=== PATIENT | male | born 1955 | race Asian ===

== ENCOUNTER 2016-08-05 02:03 | Emergency (ER) | payer OTHER ==
[~2016-08-05] VITALS: Ht 172.7 cm; Wt 80.7 kg
[2016-08-05 02:46] LABS: Basophils # (auto) 0 uL; Basophils % (auto) 0.3 % (0.0-2.0); DEFINITIVE VIEW TRANSMISSION; Eosinophils # (auto) 0.2 uL; Eosinophils % (auto) 2.1 % (0.0-7.0); Hematocrit 39.4 % (41.0-53.0); Hemoglobin 12.2 g/dL (13.5-17.5); Lymphocytes # (auto) 1.7 uL; Lymphocytes % (auto) 19.6 % (10.0-50.0); Mean Corpuscular Hemoglobin 23.2 pg (28.0-32.0); Mean Corpuscular Hgb Conc. 31.1 g/dL (32.0-36.0); Mean Corpuscular Volume 74.6 fL (80.0-100.0); Mean Platelet Volume 7.9 fL (7.4-10.4); Monocytes # (auto) 0.2 uL; Monocytes % (auto) 2.1 % (0.0-12.0); Neutrophils # (auto) 6.4 uL; Neutrophils % (auto) 75.9 % (37.0-80.0); Platelet Count (auto) 254 10^3/uL (140-450); Red Cell Distribution Width 16.5 % (11.6-16.0); White Blood Cell 8.4 10^3/uL (4.4-10.8)
[2016-08-05 03:04] LABS: Albumin 3.8 g/dL (3.4-5.0); BUN/Creatinine Ratio 9.6; Calcium 8.6 mg/dL (8.5-10.1)
[2016-08-05 03:07] LABS: Bilirubin, Total 0.2 mg/dL (0.2-1.0); Total Protein 7.7 g/dL (6.4-8.2)
[2016-08-05 03:53] LABS: Partial Thromboplastin Time 26.7 sec (22.64-33.71); Prothrombin Time 10.3 sec (9.37-12.3)
[2016-08-05 09:50] VITALS: BP 111/79
== END 2016-08-05 09:58 | disposition home or self-care (01) ==
LOC: EDUNIT# 02:03 → ER 02:03 → EDBD 02:03 → ER 09:58
DX: K80.50 Calculus of bile duct without cholangitis or cholecystitis without obstruction (principal)
CPT/HCPCS: 36415; 71020; 74176; 80053; 82150; 83690; 84484; 85025; 85049; 85379; 85610; 85730; 93005; 94761

== ENCOUNTER 2019-12-12 06:47 | Inpatient (IN) | payer MEDICARE, MEDICAID ==
[~2019-12-12] VITALS: Ht 170.2 cm; Wt 96.8 kg
[2019-12-12] MEDS ORDERED: SODIUM CHLORIDE 0.9% 1,000 ML IV ONE ×2 (07:02)
[2019-12-12 07:19] LABS: Basophils # (auto) 0 10 ^3/uL (0-0.2); Basophils % (auto) 0.8 % (0.0-2.0); Eosinophils # (auto) 0 10 ^3/uL (0-0.8); Eosinophils % (auto) 0.6 % (0.0-7.0); Hematocrit 49.2 % (41.0-53.0); Hemoglobin 16.4 g/dL (13.5-17.5); Lymphocytes # (auto) 0.9 10 ^3/uL (0.4-5.4); Lymphocytes % (auto) 14.1 % (10.0-50.0); Mean Corpuscular Hemoglobin 29.9 pg (28.0-32.0); Mean Corpuscular Hgb Conc. 33.3 g/dL (32.0-36.0); Mean Corpuscular Volume 89.6 fL (80.0-100.0); Monocytes # (auto) 0.4 10 ^3/uL (0-1.3); Monocytes % (auto) 6.9 % (0.0-12.0); Neutrophils # (auto) 4.7 10 ^3/uL (1.6-8.6); Neutrophils % (auto) 77.6 % (37.0-80.0); Nucleated Red Blood Cells % 0.1 %; Platelet Count (auto) 184 10^3/uL (140-450); Red Blood Cells 5.49 10^6/uL (4.5-5.90); Red Cell Distribution Width 13.5 % (11.8-14.3)
[2019-12-12 07:34] LABS: INR 0.98 (0.9-1.15); Partial Thromboplastin Time 24.1 sec (23.64-32.05)
[2019-12-12 07:40] LABS: Albumin 3.9 g/dL (3.4-5.0); Amylase 68 U/L (25-115); Anion Gap 3 (5-15); Blood Urea Nitrogen 15 mg/dL (7-18); Calcium 8.9 mg/dL (8.5-10.1); Carbon Dioxide 31 mmol/L (21-32); Chloride 103 mmol/L (98-107); Glucose 190 mg/dL (74-106); Lipase 277 U/L (73-393); Magnesium 2.9 mg/dL (1.6-2.6); Potassium 4.7 mmol/L (3.5-5.1); Sodium 137 mmol/L (136-145)
[2019-12-12 07:46] LABS: Alanine Aminotransferase 380 U/L (16-61); Alkaline Phosphatase 178 U/L (45-117); Aspartate Aminotransferase 296 U/L (15-37); BUN/Creatinine Ratio 10.6; Bilirubin, Total 1.1 mg/dL (0.2-1.0); GFR African American 64 mL/min; GFR Non-African American 53 mL/min; Total Protein 8.2 g/dL (6.4-8.2)
[2019-12-12] MEDS ORDERED: NITROGLYCERIN 0.4 MG SL TAB SL PRN (09:45)
[2019-12-12] MEDS ORDERED: MORPHINE SULF INJ 2 MG/ML SYRINGE 1ML IV PRN ×3 (09:45)
[2019-12-12] MEDS ORDERED: ONDANSETRON HCL 4 MG/2 ML VIAL IV PRN (09:45)
[2019-12-12] MEDS: SODIUM CHLORIDE 0.9% 1,000 ML IV SCH ×2 (10:15→17:47)
[2019-12-12] MEDS: PANTOPRAZOLE 40 MG/10 ML VIAL INJ IV SCH (10:16)
[2019-12-12] MEDS: metroNIDAZOLE 500MG/100ML 100 ML IV SCH ×2 (12:35→19:47)
--- NOTE | 2019-12-12 16:18 | NUR ---
PATIENT BROUGHT TO ROOM 294B FROM ER. NO S/S OF DISTRESS, DENIES PAIN AT THIS TIME. PATIENT AMBULATED TO THE BED. BED IN LOWEST POSITION, BED RAILS UP X2, CALL LIGHT IN REACH. WILL CONTINUE TO MONITOR.
[2019-12-12 16:40] VITALS: BP 122/85
[2019-12-12 20:00] VITALS: BP 131/77
--- NOTE | 2019-12-12 20:00 | NUR ---
Opening Shift Note Assumed care of patient, awake and alert. No S/S of distress/SOB or pain. Instructed on POC and to call for assist PRN, will continue to monitor for changes Q1hr and PRN.
[2019-12-12 22:00] VITALS: BP 131/77
[2019-12-13] VITALS (20 sets, daily range): BP systolic 73–134; BP diastolic 47–81
[2019-12-13] MEDS: SODIUM CHLORIDE 0.9% 1,000 ML IV SCH ×2 (01:45→20:30)
[2019-12-13] MEDS: metroNIDAZOLE 500MG/100ML 100 ML IV SCH ×2 (03:58→20:31)
[2019-12-13 06:22] LABS: Basophils # (auto) 0 10 ^3/uL (0-0.2); Basophils % (auto) 0.4 % (0.0-2.0); Eosinophils # (auto) 0.1 10 ^3/uL (0-0.8); Hematocrit 44.5 % (41.0-53.0); Hemoglobin 14.9 g/dL (13.5-17.5); Lymphocytes # (auto) 1.8 10 ^3/uL (0.4-5.4); Lymphocytes % (auto) 28.8 % (10.0-50.0); Mean Corpuscular Hemoglobin 29.7 pg (28.0-32.0); Mean Corpuscular Hgb Conc. 33.4 g/dL (32.0-36.0); Mean Corpuscular Volume 88.9 fL (80.0-100.0); Monocytes # (auto) 0.4 10 ^3/uL (0-1.3); Monocytes % (auto) 6.1 % (0.0-12.0); Neutrophils % (auto) 63.7 % (37.0-80.0); Platelet Count (auto) 179 10^3/uL (140-450); Red Cell Distribution Width 13.7 % (11.8-14.3); White Blood Cell 6.2 10^3/uL (4.4-10.8)
[2019-12-13 06:42] LABS: Calcium 7.7 mg/dL (8.5-10.1); Potassium 4.1 mmol/L (3.5-5.1)
[2019-12-13 06:48] LABS: Urine Bacteria NONE SEEN /hpf (None Seen); Urine Blood Negative /uL (Negative); Urine Specific Gravity 1.015 (1.001-1.035); Urine WBC <1 /hpf (0 - 3)
[2019-12-13 06:48] LABS: Albumin 3.2 g/dL (3.4-5.0); BUN/Creatinine Ratio 13.9; Bilirubin, Total 0.7 mg/dL (0.2-1.0); Total Protein 6.6 g/dL (6.4-8.2)
--- NOTE | 2019-12-13 07:00 | NUR ---
CLOSING NOTE No S/S of distress/SOB or pain. Patient is on room air. Respirations even and unlabored.
[2019-12-13] MEDS ORDERED: METOCLOPRAMIDE HCL 5MG/ml INJ 2ml VIAL IV PRN (08:00)
[2019-12-13] MEDS ORDERED: fentaNYL CITRATE 100 MCG/2 ML VL IV PRN (08:00)
[2019-12-13] MEDS ORDERED: MORPHINE SULFATE 4 MG/ML SYR/VIAL IV PRN (08:00)
[2019-12-13] MEDS ORDERED: fentaNYL CITRATE 100 MCG/2 ML VL ONE (08:42)
[2019-12-13] MEDS ORDERED: SODIUM CHLORIDE LOCK 10 ML ONE (08:42)
[2019-12-13] MEDS ORDERED: PROPOFOL 10 MG/ML 20 ML IV ONE (08:42)
[2019-12-13] MEDS ORDERED: MEPERIDINE HCL (25 MG/ML) 1ML VIAL ONE (08:42)
[2019-12-13] MEDS ORDERED: MIDAZOLAM HCL 1MG/1ML-2 ML VIAL ONE (08:42)
[2019-12-13] MEDS ORDERED: ONDANSETRON HCL 4 MG/2 ML VIAL ONE (08:42)
[2019-12-13] MEDS ORDERED: ROCURONIUM 10MG/ML 10ML VIAL IV ONE (08:42)
--- NOTE | 2019-12-13 09:09 | NUR ---
TAKEN TO PREOP REPORT GIVEN TO KARINA. PATIENT COMFORTABLE, NO DISTRESS OR PAIN.
[2019-12-13] MEDS ORDERED: ceFAZolin 1GM/50ML 50 ML IV ONE (09:10)
[2019-12-13] MEDS ORDERED: GLYCOPYRROLATE 0.2 MG/ML 1ML VIAL IV ONE (09:11)
[2019-12-13] MEDS ORDERED: NEOSTIGMINE 1 MG/ML INJ (10mg/10ML VIAL) IV ONE (09:11)
[2019-12-13] MEDS ORDERED: SUCCINYLCHOLINE CHLORIDE 20 MG/ML 10ML VIAL IV ONE (09:11)
[2019-12-13] MEDS: HYDROmorphone HCL 2 MG/ML VL IV PRN ×4 (10:28→11:20)
[2019-12-13] MEDS ORDERED: D5W/SOD CHL 0.45%/KCL 20MEQ 1,000 ML IV SCH (10:30)
[2019-12-13] MEDS ORDERED: cefTRIAXone SOD 500 MG VL IM ONE (10:30)
[2019-12-13] MEDS ORDERED: MORPHINE SULF INJ 2 MG/ML SYRINGE 1ML ONE (10:53)
--- NOTE | 2019-12-13 11:20 | NUR ---
RECOVERY ROOM ZULLY FLANAGAN SPOKE WITH ZULLY ON THE PHONE PATIENT S/P LAP CHOLECYSTECTOMY . BP 122/80 O2%100 ROOM AIR PAIN 10/10; 3 INCISIONS COVERED WITH GAUGE AND TEGADERM, ABDOMINAL BINDER IN PLACE.DILAUDID GIVEN @1030 MORPHINE @ 1100 PAIN REMAINED 10/10. PATIENT AUDIBLY GROANING IN THE BACKGROUND; DR CAMARA AWARE AND ANESTHESIOLOGIST BEDSIDE TO EVALUATE. PATIENT WILL REMAIN IN RECOVERY UNTIL CLEARED BY ANESTHESIOLOGIST.
--- NOTE | 2019-12-13 12:30 | NUR ---
UPDATE FROM ECHO VASC TECH PATIENT STABILIZED, PAIN MANAGED REPORTED AT 10/19, NO LONGER GROANING, GROGGY AND RESPONDS TO NAME. LOW BP STABLE AT 95/62 PER REPORT PATIENT RECEIVED 3 L BOLUS ; P70 2L O2 R15NC@99%,
[2019-12-13] MEDS ORDERED: KETOROLAC TROMETH 30 MG/ML 1ML VIAL ONE (12:34)
[2019-12-13] MEDS ORDERED: KETOROLAC TROMETH 30 MG/ML 1ML VIAL IV ONE (12:45)
[2019-12-13] MEDS ORDERED: hydrALAZINE HCL 20 MG/ML VL IV PRN (13:45)
--- NOTE | 2019-12-13 14:00 | NUR ---
re-assess bp 99/68 p92 T98.6 R14 o2sat 98 %on 2L N/C denied pain.
--- NOTE | 2019-12-13 14:25 | NUR ---
ELECTRIC ORGAN ASSEMBLER MADE AWARE PATIENT CONTINUES WITH LOW BP. CHARGE REMAINED BEDSIDE TO MONITOR BP. WILL CONTINUE TO MONITOR.
--- NOTE | 2019-12-13 14:30 | NUR ---
RE-ASSESS VITALS BP98/68 P75 R15 T98.7 O2SAT@98% 2L N/C DENIED PAIN; PATIENT IS RESPONSIVE ALERT X 4 HOWEVER REMAINS GROGGY.
--- NOTE | 2019-12-13 14:45 | NUR ---
HELD POTASSIUM CHLORIDE.
--- NOTE | 2019-12-13 15:00 | NUR ---
[place] FOR DECREASED BP RE-ASSESS VITALS BP82/54 P74 R15 T98.7 O2SAT@98% 2L N/C DENIED PAIN; PATIENT IS RESPONSIVE ALERT X [address] MARIA ANTONIA RABAGO.
--- NOTE | 2019-12-13 15:15 | NUR ---
MD RETURNED CALL NEW ORDERS TO BE CARRIED OUT. IV BOLUS OF NS 250ML AND STAT CBC.
--- NOTE | 2019-12-13 15:30 | NUR ---
PAGED FOR DECREASED BP RE-ASSESS VITALS BP68/41 P72 R15 T98.7 O2SAT@98% 2L N/C DENIED PAIN; PATIENT IS RESPONSIVE ALERT X 4 HOWEVER REMAINS GROGGY. PATIENT SAT UP TO DRINK WATER TOLERATED WELL.
--- NOTE | 2019-12-13 15:37 | NUR ---
RETURNED TO UNIT PATIENT KODY, ALERT TO NAME AND THIS RN OPENS EYES ON COMMAND;MOVES ALL EXTREMITIES ON COMMAND WITH A SLIGHT DELAY. BP 91/64 P68 R18 97% ON 2LNC T98.[address] EM. Addendum: 12/13/19 at 1542 by BOBBY CAMACHO RN ARRIVED AT 1330 NOT 1542
[2019-12-13 15:47] LABS: Basophils # (auto) 0 10 ^3/uL (0-0.2); Basophils % (auto) 0.1 % (0.0-2.0); Eosinophils # (auto) 0 10 ^3/uL (0-0.8); Hematocrit 32.4 % (41.0-53.0); Hemoglobin 10.5 g/dL (13.5-17.5); Lymphocytes # (auto) 1.4 10 ^3/uL (0.4-5.4); Mean Corpuscular Hemoglobin 29.3 pg (28.0-32.0); Mean Corpuscular Hgb Conc. 32.4 g/dL (32.0-36.0); Mean Corpuscular Volume 90.5 fL (80.0-100.0); Monocytes # (auto) 0.8 10 ^3/uL (0-1.3); Monocytes % (auto) 6.1 % (0.0-12.0); Neutrophils # (auto) 11.3 10 ^3/uL (1.6-8.6); Neutrophils % (auto) 83.8 % (37.0-80.0); Platelet Count (auto) 190 10^3/uL (140-450); Red Blood Cells 3.58 10^6/uL (4.5-5.90); Red Cell Distribution Width 13.2 % (11.8-14.3); White Blood Cell 13.5 10^3/uL (4.4-10.8)
--- NOTE | 2019-12-13 16:30 | NUR ---
MD RETURNED CALL NEW ORDER TO INSERT WALTON OUTPUT WAS 500CC; CONTINUE WITH REMAINING BOLUS THEN MAINTAIN IV NS @100.
--- NOTE | 2019-12-13 17:40 | NUR ---
BP RE-ASSESSED LOW 68/48 RIGHT ARM T98.6 DIAPHORETIC, SWEAT ON FOREHEAD , PAIN IN ABDOMEN 6/, R 16 [id number]% ON 2L NC, GROGGY ; PATIENT OPENS EYES AOX4 RECALLS HIS SON IN LAWS NAME JACQUELINE AND WHY HE IS AT THE HOSPITAL. HOSPITALIST PAGED.
--- NOTE | 2019-12-13 17:45 | NUR ---
EMILY SILVA TEXTILE ARTIST RETURNED CALL. NEW ORDERS PATIENT WILL BE TRANSFERRED TO ICU [employer] OPERATIONS SPECIALIST NOLBERTO MADE AWARE AND HOUSE SUP; LEVO DRIP,CBC,BMP AND LACTIC ACID ALSO ORDERED.WILL CONTINUE TO MONITOR, KIMMIE FLANAGAN WILL REMAIN BEDSIDE UNTIL TRANSFER COMPLETED.
--- NOTE | 2019-12-13 18:45 | NUR ---
CALLED NIGHT CHARGE [facility]ED. PATIENT HAS A BED ASSIGNMENT JAIMEE INSTRUCTED THIS RN TO CALL HOUSE JAIRON KOENIG.
--- NOTE | 2019-12-13 18:47 | NUR ---
PAGED HOUSE JAIRON KOENIG AWAITING CALL.
[2019-12-13 18:49] LABS: Basophils # (auto) 0 10 ^3/uL (0-0.2); Basophils % (auto) 0.2 % (0.0-2.0); Eosinophils # (auto) 0 10 ^3/uL (0-0.8); Hematocrit 29.3 % (41.0-53.0); Hemoglobin 9.5 g/dL (13.5-17.5); Lymphocytes # (auto) 1.2 10 ^3/uL (0.4-5.4); Lymphocytes % (auto) 9.6 % (10.0-50.0); Mean Corpuscular Hemoglobin 29.4 pg (28.0-32.0); Mean Corpuscular Hgb Conc. 32.3 g/dL (32.0-36.0); Monocytes # (auto) 0.6 10 ^3/uL (0-1.3); Monocytes % (auto) 5.1 % (0.0-12.0); Neutrophils # (auto) 10.7 10 ^3/uL (1.6-8.6); Neutrophils % (auto) 85.1 % (37.0-80.0); Platelet Count (auto) 191 10^3/uL (140-450); Red Blood Cells 3.22 10^6/uL (4.5-5.90); Red Cell Distribution Width 13.4 % (11.8-14.3); White Blood Cell 12.6 10^3/uL (4.4-10.8)
[2019-12-13] MEDS: ONDANSETRON HCL 4 MG/2 ML VIAL IV PRN (18:58)
--- NOTE | 2019-12-13 19:05 | NUR ---
ARYA HOUSE SUP RETURNED CALL PATIENT WILL GO TO BED 262. THIS RN WILL CALL REPORT TO [place] RN.
[2019-12-13 19:13] LABS: BUN/Creatinine Ratio 15.8; Calcium 6.6 mg/dL (8.5-10.1); Potassium 5.2 mmol/L (3.5-5.1)
--- NOTE | 2019-12-13 19:15 | NUR ---
ENDORSED CARE TO NIGHT MASHA ATKINS IN [facility]. TRANSFERRED PATIENT TO [facility] TOLERATED WELL.
[2019-12-13 19:22] LABS: Lactic Acid w/Reflex 4.4 mmol/L (0.4-2.0)
[2019-12-13] MEDS ORDERED: InsuLIN REG 1unit/0.01ml Soln (100units/ml) IV ONE (19:30)
[2019-12-13] MEDS ORDERED: DEXTROSE (50%) 50ML SYRG IV ONE (19:30)
[2019-12-13] MEDS ORDERED: SODIUM BICARBONATE 8.4 % INJ 50ML VIAL IV ONE (19:30)
--- NOTE | 2019-12-13 19:45 | NUR ---
OPENING NOTE RECEIVED PATIENT FROM MASHA ROSALES. PATIENT IS A/OX4, ABLE TO ANSWER ALL QUESTIONS. PATIENT CONNECTED TO CONTINUOUS MONITORS. HEART RATE 97, O2 SATURATION 98% ON 2L NASAL CANNULA. CURRENT BP 80/51, ORDER FOR LEVOPHED NOTED, PATIENT WILL BE STARTED ON LEVOPHED FOR BP. PHYSICAL ASSESSMENT DONE-SEE INTERVENTIONS. IV NOTED TO RIGHT AC 20G INTACT RUNNING ORDERED NORMAL SALINE. 3 INCISIONS TO ABDOMEN, NO SIGNS OF ACTIVE BLEEDING. WALTON IN PLACE WITH CLEAR YELLOW URINE NOTED. PATIENT PLACED ON SCD'S TO BILATERAL LEGS.
--- NOTE | 2019-12-13 20:15 | NUR ---
IV insertion IV access obtained, via clean sterile technique by inserting 22 gauge catheter at LEFT HAND. IV secured properly. No trauma to site. Patient tolerated well.
[2019-12-13] MEDS: NOREPINEPHRINE 8 MG/250ML KIT 250 ML IV SCH (20:19)
--- NOTE | 2019-12-13 21:00 | NUR ---
MRSA NARES COLLECTED AND SENT TO LAB
--- NOTE | 2019-12-13 21:15 | NUR ---
IV insertion IV access obtained, via clean sterile technique by inserting 20 gauge catheter at RT UPPER ARM after 1 attempt(s). IV secured properly. No trauma to site. Patient tolerated well. NOTE:
--- NOTE | 2019-12-13 21:30 | NUR ---
CALLED SURGEON NUSRAT REGARDING ROCEPHIN IM, FOR CLARIFICATION OF IM ADMINISTRATION, LEFT MESSAGE. AWAITING CALLBACK.
[2019-12-13] MEDS: PANTOPRAZOLE 40 MG/10 ML VIAL INJ IV SCH (21:36)
[2019-12-14] VITALS (66 sets, daily range): BP systolic 82–135; BP diastolic 55–82
--- NOTE | 2019-12-14 | NUR ---
PERFORMED 3 FLUID BOLUS CHALLENGES ON PT. PT RESPONDED WELL BUT PT BP HAS DROPPED AGAIN WITH INCREASED HR POST BOLUSES. ASSESSMENT OF PT RR INCREASED, SKIN AND GUMS PALE AND CAP REFILL SLUGGISH. ORDERED CBC FOR POSSIBLE BLEED.
--- NOTE | 2019-12-14 00:39 | NUR ---
PAGED HOSPITALIST REGARDING HGB DROP TO 7.8 FROM 9.5.
[2019-12-14 00:43] LABS: Basophils # (auto) 0 10 ^3/uL (0-0.2); Basophils % (auto) 0.3 % (0.0-2.0); Eosinophils # (auto) 0 10 ^3/uL (0-0.8); Hematocrit 23.9 % (41.0-53.0); Hemoglobin 7.8 g/dL (13.5-17.5); Lymphocytes # (auto) 1.2 10 ^3/uL (0.4-5.4); Lymphocytes % (auto) 11.3 % (10.0-50.0); Mean Corpuscular Hemoglobin 29.4 pg (28.0-32.0); Mean Corpuscular Hgb Conc. 32.6 g/dL (32.0-36.0); Monocytes # (auto) 0.5 10 ^3/uL (0-1.3); Monocytes % (auto) 4.9 % (0.0-12.0); Neutrophils # (auto) 8.6 10 ^3/uL (1.6-8.6); Neutrophils % (auto) 83.5 % (37.0-80.0); Nucleated Red Blood Cells % 0.3 %; Platelet Count (auto) 185 10^3/uL (140-450); Red Blood Cells 2.65 10^6/uL (4.5-5.90); Red Cell Distribution Width 13.5 % (11.8-14.3); White Blood Cell 10.3 10^3/uL (4.4-10.8)
--- NOTE | 2019-12-14 01:12 | NUR ---
RECEIVED CALL BACK FROM HOSPITALIST SPOKE WITH HOSPITALIST ANABELLE. NOTIFIED ROSALIO OF DROP IN PATIENTS HEMOGLOBIN FROM 9.5 TO 7.8, WELL PATIENTS SLUGGISH CAP REFILL AND PALE COLOR. NEW ORDER FOR HEMOGLOBIN AND HEMATOCRIT IN 4 HOURS. WILL CARRY OUT ORDER
[2019-12-14 03:35] LABS: Basophils # (auto) 0 10 ^3/uL (0-0.2); Eosinophils # (auto) 0 10 ^3/uL (0-0.8); Lymphocytes # (auto) 1.3 10 ^3/uL (0.4-5.4); Monocytes # (auto) 0.5 10 ^3/uL (0-1.3); White Blood Cell 9.8 10^3/uL (4.4-10.8)
[2019-12-14 03:37] LABS: Basophils % (auto) 0.1 % (0.0-2.0); Hematocrit 24.3 % (41.0-53.0); Hemoglobin 8.2 g/dL (13.5-17.5); Mean Corpuscular Hgb Conc. 33.7 g/dL (32.0-36.0); Monocytes % (auto) 5.1 % (0.0-12.0); Neutrophils % (auto) 81.8 % (37.0-80.0); Platelet Count (auto) 181 10^3/uL (140-450); Red Blood Cells 2.73 10^6/uL (4.5-5.90); Red Cell Distribution Width 13.2 % (11.8-14.3)
[2019-12-14] MEDS: metroNIDAZOLE 500MG/100ML 100 ML IV SCH ×3 (03:45→20:05)
[2019-12-14 03:58] LABS: Calcium 6.5 mg/dL (8.5-10.1); Potassium 4.4 mmol/L (3.5-5.1)
[2019-12-14 04:03] LABS: Albumin 2.3 g/dL (3.4-5.0); Bilirubin, Total 0.4 mg/dL (0.2-1.0); Magnesium 2.1 mg/dL (1.6-2.6); Total Protein 4.5 g/dL (6.4-8.2)
[2019-12-14] MEDS: SODIUM CHLORIDE 0.9% 1,000 ML IV SCH ×2 (05:30→15:42)
--- NOTE | 2019-12-14 07:20 | NUR ---
CLOSING REPORT ENDORSED TO DAYSHIFT RN PATIENT IS RESTING COMFORTABLY IN BED, CONNECTED TO ALL MONITORS. HEART RATE IN 80'S, SPO2 AT 97%. LEVOPHED RUNNING-SEE IV SPREADSHEET. CALL LIGHT WITHIN REACH. NO SIGNS OF PAIN OR DISTRESS, CALL LIGHT WITHIN REACH.
--- NOTE | 2019-12-14 07:40 | NUR ---
OPENING Report received from Marlee and Tariq Tapia. Care initiated and initial assessment complete.
[2019-12-14] MEDS: HYDROmorphone HCL 2 MG/ML VL IV PRN ×2 (08:05→19:02)
--- NOTE | 2019-12-14 08:07 | NUR ---
MEDICATED FOR C/O LOWER ABD PAIN 10/10. ALSO POSITIONED FOR COMFORT
[2019-12-14] MEDS ORDERED: IOHEXOL 300 MG/ML 100ML BOTTLE IJ ONE (08:45)
--- NOTE | 2019-12-14 09:04 | NUR ---
OFF TO CT Patient attached to portable monitor and taken to CT for abdomen CT. Patient attached to portable monitor with transporter and radiology nurse
--- NOTE | 2019-12-14 10:53 | NUR ---
SPOKE TO RADIOLOGIST Radiologist trying to reach MD with critical results.
--- NOTE | 2019-12-14 11:09 | NUR ---
Est energy needs 9497-5526 kcal/kg (25-30 kcal/kg IBW 67.3kg) Est protein needs 67-74g (1-1.1g/kg IBW 67.3kg) Will reassess prn Addendum: 12/14/19 at [address] Amended: Links added.
[2019-12-14] MEDS: PANTOPRAZOLE 40 MG/10 ML VIAL INJ IV SCH (11:40)
[2019-12-14] MEDS: cefTRIAXone 1GM/50ML D5W 50 ML IV SCH (11:40)
[2019-12-14] MEDS ORDERED: MORPHINE SULF INJ 2 MG/ML SYRINGE 1ML IV PRN (12:00)
[2019-12-14 12:55] LABS: Hemoglobin 7.6 g/dL (13.5-17.5)
[2019-12-14 12:56] LABS: Hematocrit 22.6 % (41.0-53.0)
--- NOTE | 2019-12-14 15:21 | NUR ---
HOLD P.T. TODAY PER RN.
[2019-12-14] MEDS: NOREPINEPHRINE 8 MG/250ML KIT 250 ML IV SCH (15:51)
--- NOTE | 2019-12-14 17:00 | NUR ---
SPOKE TO MD: Janice Patient complains of stomach pain. New orders received.
[2019-12-14] MEDS ORDERED: ALUM & MAG HYDROX-SIMETH LIQ(MAALOX) 30 ML PO ONE (17:30)
--- NOTE | 2019-12-14 18:37 | NUR ---
COMPLAINTS OF PAIN Treating with medication as ordered.
[2019-12-14] MEDS: ONDANSETRON HCL 4 MG/2 ML VIAL IV PRN ×2 (19:02→21:11)
--- NOTE | 2019-12-14 19:30 | NUR ---
Blood done infusing last vs recorded, no reaction noted
--- NOTE | 2019-12-14 20:00 | NUR ---
OPENING NOTE Pt verbalize fear and asking why doctor did not see him, updated pt on poc and addressed all of is questions and concerns, pt verbalized understanding and verbalized relief. Will continue updating pt through out he shift. Pt is on 2L NC saturating at 98%. Suazo draining down the gravity, free of kinks, urine is clear light yellow in color. Surgical dressing is intact, no sign of bleeding or redness noted. Will continue to monitor closely. See interventions for full assessment.
--- NOTE | 2019-12-14 20:55 | NUR ---
Hospitalist at bedside Made hospitalist aware of changes in ECG (pvc, HR jumping from 70's to 100's) and low calcium. Per hospitalist to make sure there are am orders for CMP and Mag.
[2019-12-14 21:08] LABS: Basophils # (auto) 0 10 ^3/uL (0-0.2); Eosinophils # (auto) 0 10 ^3/uL (0-0.8); Lymphocytes # (auto) 0.9 10 ^3/uL (0.4-5.4)
[2019-12-14 21:09] LABS: Basophils % (auto) 0.4 % (0.0-2.0); Eosinophils % (auto) 0.1 % (0.0-7.0); Hematocrit 24.6 % (41.0-53.0); Hemoglobin 8.3 g/dL (13.5-17.5); Lymphocytes % (auto) 10.7 % (10.0-50.0); Mean Corpuscular Hemoglobin 30.1 pg (28.0-32.0); Mean Corpuscular Hgb Conc. 33.8 g/dL (32.0-36.0); Monocytes # (auto) 0.7 10 ^3/uL (0-1.3); Monocytes % (auto) 8.4 % (0.0-12.0); Neutrophils % (auto) 80.4 % (37.0-80.0); Platelet Count (auto) 133 10^3/uL (140-450); Red Blood Cells 2.77 10^6/uL (4.5-5.90); Red Cell Distribution Width 13.2 % (11.8-14.3); White Blood Cell 8.8 10^3/uL (4.4-10.8)
[2019-12-15] VITALS (46 sets, daily range): BP systolic 80–155; BP diastolic 49–88
[2019-12-15] MEDS: SODIUM CHLORIDE 0.9% 1,000 ML IV SCH (00:38)
[2019-12-15 01:25] LABS: Hematocrit 23.4 % (41.0-53.0)
[2019-12-15] MEDS: HYDROmorphone HCL 2 MG/ML VL IV PRN (02:48)
[2019-12-15] MEDS: ONDANSETRON HCL 4 MG/2 ML VIAL IV PRN ×2 (02:48→09:36)
[2019-12-15 03:30] LABS: Basophils # (auto) 0 10 ^3/uL (0-0.2); Basophils % (auto) 0.4 % (0.0-2.0); Eosinophils # (auto) 0 10 ^3/uL (0-0.8); Eosinophils % (auto) 0.1 % (0.0-7.0); Hemoglobin 8.2 g/dL (13.5-17.5); Lymphocytes # (auto) 1.1 10 ^3/uL (0.4-5.4); Lymphocytes % (auto) 10.9 % (10.0-50.0); Mean Corpuscular Hemoglobin 30.3 pg (28.0-32.0); Mean Corpuscular Volume 88.9 fL (80.0-100.0); Monocytes # (auto) 0.7 10 ^3/uL (0-1.3); Monocytes % (auto) 6.9 % (0.0-12.0); Neutrophils # (auto) 8.1 10 ^3/uL (1.6-8.6); Neutrophils % (auto) 81.7 % (37.0-80.0); Platelet Count (auto) 140 10^3/uL (140-450); Red Cell Distribution Width 13.4 % (11.8-14.3); White Blood Cell 9.9 10^3/uL (4.4-10.8)
[2019-12-15] MEDS: metroNIDAZOLE 500MG/100ML 100 ML IV SCH ×2 (03:32→21:50)
--- NOTE | 2019-12-15 03:38 | NUR ---
Morning Care Patient was bathed and tolerated well, partial linen change was done.
[2019-12-15 03:48] LABS: Albumin 2.6 g/dL (3.4-5.0); Calcium 7.3 mg/dL (8.5-10.1); Magnesium 2.2 mg/dL (1.6-2.6); Potassium 4.1 mmol/L (3.5-5.1)
[2019-12-15 03:53] LABS: Bilirubin, Total 0.6 mg/dL (0.2-1.0); Total Protein 5.3 g/dL (6.4-8.2)
--- NOTE | 2019-12-15 04:21 | NUR ---
Pt appears to have sleep apnea Pt appears to have sleep apnea, snoring, saturation drop to 87% about four times during sleep but went above 90's right away.
--- NOTE | 2019-12-15 05:32 | NUR ---
Pt placed on 6L regular mask pt saturation dropped to low 70% during sleep apnea
--- NOTE | 2019-12-15 08:00 | NUR ---
Abd softly distended and tender to touch - bowel sounds not audible to auscultation. Abd binder in place.
--- NOTE | 2019-12-15 08:50 | NUR ---
Lead Engineer contacted Dr Lazo re: patient concerns expressed to NOC nurse - states he will see patient today.
[2019-12-15] MEDS: cefTRIAXone 1GM/50ML D5W 50 ML IV SCH (08:53)
[2019-12-15] MEDS: PANTOPRAZOLE 40 MG/10 ML VIAL INJ IV SCH (10:24)
--- NOTE | 2019-12-15 10:30 | NUR ---
Dr Washington visits and examines patient - order received. Patient expressed concern and fear about his medical condition r/t to surgical procedure-much reassurance given. Patient assured that Dr Lazo would see patient today.
[2019-12-15] MEDS ORDERED: D5W/SOD CHLO 0.9% 1,000 ML IV SCH (11:00)
[2019-12-15 11:37] LABS: Hematocrit 23.8 % (41.0-53.0)
--- NOTE | 2019-12-15 11:50 | NUR ---
DR SILVERIO VISITS AND DISCUSSES PATIENT'S CURRENT CONDITION AND PATIENT'S OPTIONS IN DETAIL - PATIENT VERBALIZES UNDERSTANDING AND OPTS FOR SURGERY TO EVACUATE HEMOPERITONEUM.DR SILVERIO PHONES PATIENT'S [id number] AND INFORMS HER OF SAME - SHE ALSO VERBALIZED UNDERSTANDING.
[2019-12-15 11:52] LABS: INR 1.03 (0.9-1.15); Partial Thromboplastin Time 25.9 sec (23.64-32.05)
--- NOTE | 2019-12-15 12:15 | NUR ---
CONSENTS FOR SURGERY AND ANESTHESIA SIGNED PER PATIENT AND WITNESSED PER STAGE DIRECTOR.
--- NOTE | 2019-12-15 13:30 | NUR ---
PATIENT TAKEN TO O.R. PER BED WITH PORTABLE WIND TUNNEL MECHANIC AND O2 @ 2L PER NC. CONDITION APPEARS STABLE FOR TRANSFER TO O.R.
[2019-12-15] MEDS ORDERED: ROCURONIUM 10MG/ML 10ML VIAL IV ONE ×3 (13:54→17:47)
[2019-12-15] MEDS ORDERED: fentaNYL CITRATE 100 MCG/2 ML VL ONE ×2 (14:01→16:58)
[2019-12-15] MEDS ORDERED: MIDAZOLAM HCL 1MG/1ML-2 ML VIAL ONE ×2 (14:02→14:53)
[2019-12-15] MEDS ORDERED: ONDANSETRON HCL 4 MG/2 ML VIAL IV PRN (15:15)
[2019-12-15] MEDS ORDERED: HYDROmorphone HCL 2 MG/ML VL IV PRN (15:15)
[2019-12-15] MEDS ORDERED: POVIDONE IODINE 10 % TOPICAL OINT 30GM TOP ONE (15:30)
--- NOTE | 2019-12-15 15:30 | NUR ---
Dr. Duff bedside Patient arrived from OR after laproscopic evacuation of adalberto-hepatic clot, with approximately 1900ml fluids/blood removed. Patient here to monitor respiratory status d/t right upper lobe infiltrate. HR 1254 BP 144/76 RR 24 BP 144/76. Patient has right upper quadrant JEFF drain initial drainage dung blood total of 150ml. Suazo catheter to gravity total 1100ml clear yellow urine. Patient intubated with 7.56 25" at lip, intubated in ER. Patient given 4mg Versed IV push Dr. Duff, now started on Versed IV at 1mg/ml. Patient now being transferred to bed 103.
[2019-12-15] MEDS ORDERED: MIDAZOLAM DRIP 50 mg/50mL 50 ML IV SCH (15:37)
[2019-12-15] MEDS ORDERED: MIDAZOLAM HCL 5 MG/ML-1ML VIAL ONE ×2 (15:40→16:58)
[2019-12-15] MEDS ORDERED: MIDAZOLAM DRIP 50 mg/50mL 50 ML IV ONE (15:40)
--- NOTE | 2019-12-15 15:41 | NUR ---
Drj. Duff Bedside, administering 40mg Versed IV push, patient is starting to wake up.
[2019-12-15] MEDS ORDERED: MIDAZOLAM HCL 1MG/1ML-2 ML VIAL IV ONE (15:45)
--- NOTE | 2019-12-15 15:45 | NUR ---
Sedation orders Dr. Duff Per anesthesiologist that is bedside, order to start Versed at 15 mg, Propofol at 3030 mcg/kg/min, Fentanyl at 50mcg/hr.
--- NOTE | 2019-12-15 15:50 | NUR ---
HOLD P.T. BECAUSE OF SURGERY. WILL AWAIT NEW ORDERS.
--- NOTE | 2019-12-15 16:00 | NUR ---
Patient moved from bed 101 to 103. New order for propofol for sedation in addition to versed.
--- NOTE | 2019-12-15 16:18 | NUR ---
Dr. Duff bedside Patient is sedated on Versed and now on propofol , patients remains tachypneic. New order to add Fetanyl within an hour if patients respiratory rate remains the same.
--- NOTE | 2019-12-15 16:31 | NUR ---
Dr. Jain Requested pulmonary consult for aspiration during intubation during surgery.
[2019-12-15] MEDS ORDERED: SODIUM CHLORIDE LOCK 40 ML ONE (16:45)
[2019-12-15] MEDS ORDERED: LIDOCAINE HCL 2% TOP JELLY 5ML TOP ONE (16:45)
[2019-12-15] MEDS ORDERED: EPINEPHrine HCL 1 MG/1 ML AMP ONE (16:45)
[2019-12-15] MEDS ORDERED: fentaNYL Drip 2500mCg/250mlNS 250 ML IV SCH (16:46)
[2019-12-15] MEDS ORDERED: LIDOCAINE 2%HCL (LOCAL ANESTH.) INJ 20ML MDV ONE (16:46)
[2019-12-15] MEDS ORDERED: fentaNYL Drip 2500mCg/250mlNS 250 ML IV ONE (16:48)
--- NOTE | 2019-12-15 17:05 | NUR ---
Dr. Duff bedside Per Dr. Jain consult for Bronchoscopy. Received over the phone consent for procedure from family. New order for Fentanyl and Dr. Duff pushed paralytic bedside x2. New order for paralytic IV drip per Dr. Jain. Dr. Baird on his way, would like Bronch team bedside for the procedure.
[2019-12-15] MEDS ORDERED: ACETYLCYSTEINE 10 %(100MG/ML) SOL 4ML ONE (17:06)
[2019-12-15] MEDS ORDERED: PROPOFOL 100 ML IV SCH (17:14)
[2019-12-15] MEDS: fentaNYL Drip 2500mCg/250mlNS 250 ML IV SCH (17:14)
[2019-12-15] MEDS ORDERED: FUROSEMIDE 20 MG/2 ML VIAL ONE ×2 (17:45→20:33)
--- NOTE | 2019-12-15 17:47 | NUR ---
Dr. Baird bedside New order for Lasix 20mg, and Luis 50mg IV push now.
--- NOTE | 2019-12-15 17:54 | NUR ---
Dr Baird Order for stat labs verbal, in order set.
--- NOTE | 2019-12-15 18:15 | NUR ---
Dr Baird Bedside with brochoscopy team.
[2019-12-15] MEDS: ATRACURIUM BESYLATE 1,000 MG in D5W 5% 150 ML IV SCH (18:30)
--- NOTE | 2019-12-15 18:30 | NUR ---
Dr. Baird bedside Start paralytic IV per protocol.
[2019-12-15 18:54] LABS: BUN/Creatinine Ratio 14.4; Magnesium 2.5 mg/dL (1.6-2.6); Phosphorus 2.6 mg/dL (2.5-4.90); Potassium 4.4 mmol/L (3.5-5.1)
--- NOTE | 2019-12-15 18:56 | NUR ---
Dr. Duff on floor Order to DC fentanyl d/t decrease in BP. Discussed with Dr. Baird who was bedside for insertion of central line and A-line, verbal order to DC propofol and increase Fentanyl to 150 mcg/hr.
--- NOTE | 2019-12-15 19:02 | NUR ---
Hypotension Dr. Baird bedside verbal order to bolus patient 0.9% NS 250ml.
[2019-12-15 19:03] LABS: Basophils # (auto) 0 10 ^3/uL (0-0.2); Basophils % (auto) 0.1 % (0.0-2.0); Eosinophils # (auto) 0 10 ^3/uL (0-0.8); Eosinophils % (auto) 0.4 % (0.0-7.0); Hematocrit 26.8 % (41.0-53.0); Hemoglobin 8.9 g/dL (13.5-17.5); Lymphocytes # (auto) 0.2 10 ^3/uL (0.4-5.4); Lymphocytes % (auto) 11.2 % (10.0-50.0); Mean Corpuscular Hemoglobin 30.6 pg (28.0-32.0); Mean Corpuscular Hgb Conc. 33.2 g/dL (32.0-36.0); Mean Corpuscular Volume 92.3 fL (80.0-100.0); Monocytes # (auto) 0 10 ^3/uL (0-1.3); Monocytes % (auto) 2.2 % (0.0-12.0); Neutrophils # (auto) 1.7 10 ^3/uL (1.6-8.6); Neutrophils % (auto) 86.1 % (37.0-80.0); Nucleated Red Blood Cells % 0.9 %; Platelet Count (auto) 111 10^3/uL (140-450); Red Cell Distribution Width 13.5 % (11.8-14.3)
--- NOTE | 2019-12-15 19:44 | NUR ---
Dr. Baird bedside Patient hypotensive after 250 ml bolus. New order for norepinephrine.
[2019-12-15] MEDS ORDERED: NOREPINEPHRINE 8 MG/250ML KIT 250 ML IV ONE (19:46)
[2019-12-15] MEDS: NOREPINEPHRINE 8 MG/250ML KIT 250 ML IV SCH (19:57)
[2019-12-15] MEDS: D5W/SOD CHLO 0.9% 1,000 ML IV SCH (20:01)
[2019-12-15] MEDS ORDERED: LACTATED RINGER'S 1,000 ML IV ONE (20:30)
[2019-12-15] MEDS ORDERED: FUROSEMIDE 20 MG/2 ML VIAL IV ONE (20:30)
--- NOTE | 2019-12-15 20:30 | NUR ---
HYPOTENSION/HYPERTHERMIA NOTIFIED TO . ORDERS RECEIVED. MD TOLD TO HOLD LASIX IF CVP IS LESS THAN 12.
--- NOTE | 2019-12-15 20:49 | NUR ---
Spoke with family, updated on status. They requested to speak to Dr. Baird tomorrow.
--- NOTE | 2019-12-15 21:00 | NUR ---
HYPERTHERMIA ICE PACKS AND COLD COMPRESS PLACED ON PATIENT. WILL MONITOR CLOSELY.
--- NOTE | 2019-12-15 21:30 | NUR ---
Patient bathe/linen change Patient given complete bath with chlorhexidine wipes. Skin integrity assessed for any changes. Linens changed. Patient repositioned for comfort.
[2019-12-15] MEDS: ceFAZolin 1GM/50ML 50 ML IV SCH (21:50)
[2019-12-15] MEDS ORDERED: ACETYLCYSTEINE 20%(200MG/ML) SOL 4ML NEB SCH (22:00)
[2019-12-15] MEDS ORDERED: cefTRIAXone 1GM/50ML D5W 50 ML IV ONE (22:00)
[2019-12-15] MEDS: MIDAZOLAM DRIP 50 mg/50mL 50 ML IV SCH (22:27)
[2019-12-16] VITALS (108 sets, daily range): BP systolic 81–128; BP diastolic 21–71
[2019-12-16 00:01] LABS: Basophils # (auto) 0 10 ^3/uL (0-0.2); Eosinophils # (auto) 0 10 ^3/uL (0-0.8); Hemoglobin 8.4 g/dL (13.5-17.5); White Blood Cell 4.3 10^3/uL (4.4-10.8)
[2019-12-16 00:02] LABS: Hematocrit 25.2 % (41.0-53.0); Lymphocytes # (auto) 0.4 10 ^3/uL (0.4-5.4); Lymphocytes % (auto) 9.1 % (10.0-50.0); Mean Corpuscular Hemoglobin 30.1 pg (28.0-32.0); Mean Corpuscular Hgb Conc. 33.5 g/dL (32.0-36.0); Mean Corpuscular Volume 89.8 fL (80.0-100.0); Monocytes # (auto) 0.1 10 ^3/uL (0-1.3); Monocytes % (auto) 3.4 % (0.0-12.0); Neutrophils # (auto) 3.7 10 ^3/uL (1.6-8.6); Neutrophils % (auto) 87.5 % (37.0-80.0); Platelet Count (auto) 116 10^3/uL (140-450); Red Cell Distribution Width 13.4 % (11.8-14.3)
[2019-12-16] MEDS: MIDAZOLAM DRIP 50 mg/50mL 50 ML IV SCH ×2 (02:01→05:57)
[2019-12-16] MEDS: D5W/SOD CHLO 0.9% 1,000 ML IV SCH ×2 (02:48→12:34)
[2019-12-16 05:59] LABS: Basophils # (auto) 0 10 ^3/uL (0-0.2); Basophils % (auto) 0.1 % (0.0-2.0); Eosinophils # (auto) 0 10 ^3/uL (0-0.8); Eosinophils % (auto) 0.3 % (0.0-7.0); Hematocrit 25.1 % (41.0-53.0); Hemoglobin 8.5 g/dL (13.5-17.5); Lymphocytes # (auto) 0.3 10 ^3/uL (0.4-5.4); Lymphocytes % (auto) 4.2 % (10.0-50.0); Mean Corpuscular Hemoglobin 30.3 pg (28.0-32.0); Mean Corpuscular Volume 89.2 fL (80.0-100.0); Monocytes # (auto) 0.2 10 ^3/uL (0-1.3); Monocytes % (auto) 2.2 % (0.0-12.0); Neutrophils # (auto) 6.9 10 ^3/uL (1.6-8.6); Neutrophils % (auto) 93.2 % (37.0-80.0); Platelet Count (auto) 129 10^3/uL (140-450); Red Blood Cells 2.81 10^6/uL (4.5-5.90); Red Cell Distribution Width 13.3 % (11.8-14.3); White Blood Cell 7.4 10^3/uL (4.4-10.8)
[2019-12-16] MEDS: metroNIDAZOLE 500MG/100ML 100 ML IV SCH ×3 (06:00→21:56)
[2019-12-16] MEDS: ceFAZolin 1GM/50ML 50 ML IV SCH (06:00)
--- NOTE | 2019-12-16 06:00 | NUR ---
DIANNE HELD PATIENT'S CVPS WERE BETWEEN 9-11.
[2019-12-16 06:03] LABS: Potassium 4.1 mmol/L (3.5-5.1)
[2019-12-16 06:14] LABS: Albumin 2.2 g/dL (3.4-5.0); BUN/Creatinine Ratio 13.9; Bilirubin, Total 0.8 mg/dL (0.2-1.0); Calcium 6.8 mg/dL (8.5-10.1); Magnesium 2.1 mg/dL (1.6-2.6); Total Protein 4.8 g/dL (6.4-8.2)
[2019-12-16] MEDS ORDERED: cefTRIAXone 1GM/50ML D5W 50 ML IV SCH (09:00)
--- NOTE | 2019-12-16 09:00 | NUR ---
FAMILY PATIENT'S DAUGHTER IN LAW CALLED. UPDATED HER ON PT'S STATUS AND POC FOR TODAY. ALL QUESTIONS ANSWERED. FAMILY TO CALL BACK LATER ON IN THE AFTERNOON.
[2019-12-16] MEDS: ATRACURIUM BESYLATE 1,000 MG in D5W 5% 150 ML IV SCH (10:06)
[2019-12-16] MEDS: PANTOPRAZOLE 40 MG/10 ML VIAL INJ IV SCH (10:06)
--- NOTE | 2019-12-16 11:00 | NUR ---
DR. CARLOS AT BEDSIDE: ORDERS MD UPDATED ON PT'S CURRENT STATUS, LABS, GTT'S AND TRENDING HEMODYNAMICS. ORDERS GIVEN AND TO BE CARRIED OUT. MD WANTING TO TITRATE/ WEAN OFF PARALYTIC GTT, STARTING NOW. DECREASED CURRENT LEVEL TO 7 MCG/KG/MIN. WILL CONTINUE TO MONITOR PATIENT CLOSELY. LAST TOF WAS 08/15. STAT CCXR TO BE PLACED.
[2019-12-16 11:57] LABS: Hematocrit 24.8 % (41.0-53.0); Hemoglobin 8.5 g/dL (13.5-17.5)
[2019-12-16] MEDS: PIPERACILLIN-TAZOB 3.375GM 100 ML IV SCH ×3 (12:34→23:57)
--- NOTE | 2019-12-16 14:00 | NUR ---
WEANED OFF ATRACURIUM GTT AT THIS TIME INFORMED DR. CARLOS ON PATIENT TOLERATING PROCESS. WILL CONTINUE TO MONITOR.
[2019-12-16] MEDS: fentaNYL Drip 2500mCg/250mlNS 250 ML IV SCH (14:37)
--- NOTE | 2019-12-16 15:10 | NUR ---
FAMILY CALLED UPDATED DAUGHTER IN LAW OF PATIENT ON PATIENT'S CURRENT STATUS AND CURRENT OXYGENATION LEVEL ON VENT. CONTINUE CARE.
[2019-12-16] MEDS ORDERED: AMIODARONE HCL 150 MG in D5W 5% 100 ML IV ONE (19:00)
[2019-12-16] MEDS ORDERED: AMIODARONE HCL (50 MG/ ML) 3 ML VIAL IV ONE (19:07)
[2019-12-16] MEDS ORDERED: AMIODARONE 450mg/250ml AE 250 ML IV ONE (19:07)
[2019-12-16 19:13] LABS: Hemoglobin 8.1 g/dL (13.5-17.5)
--- NOTE | 2019-12-16 19:53 | NUR ---
A.FIB RVR: STATUS WITNESSED PATIENT GO INTO A.FIB RVR, RATE UP TO 160'S, FOLLOWED WITH DECREASED BP IN THE LOW 80'S VIA A-LINE. STAT EKG TAKEN. TALKED WITH Christie SILVA FOR ORDERS. STARTED AMIODARONE IV PER PROTOCOL, BOLUS GIVEN. CONTINUE CARE. REPORT GIVEN TO MASHA ALVARADO. Addendum: 12/16/19 at 1956 by Ree Sood RN NOTE TO BE MADE FOR 1899.
--- NOTE | 2019-12-16 19:55 | NUR ---
OPENING NOTE RECEIVED REPORT AND ASSUMED CARE OF PT. PT IS CURRENTLY ON MECHANICAL VENTILATOR AND SEDATED (SEE IV SPREADSHEET). COOLING MEASURES APPLIED FOR TEMP OF 100.4. PT UNRESPONSIVE TO PAINFUL STIMULI. PT WAS IN AFIB RVR AT CHANGE OF SHIFT, AMIO INITIATED PER PROTOCOL BY DAY SHIFT RN. CAROL RUNNING FOR BP SUPPORT. GENERALIZED EDEMA NOTED UPON ASSESSMENT. PULSES IRREGULAR, WEAK, BUT PALPABLE. ART-LINE IN PLACE TO R GROIN, ZEROED AND WORKING APPROPRIATELY. PT IS IN SYNCH WITH VENTILATOR AND TOLERATING WELL WITH SATS >95%. LUNGS ARE CTA AND DIMINISHED IN THE BASES. NO SIGNS OF DISTRESS NOTED AT THIS TIME. TWO MIDLINE ABDOMINAL INCISIONS, DRESSINGS ARE INTACT WITH MINIMAL DRAINAGE. WALTON CATHETER IN PLACE AND DRAINING APPROPRIATELY. BOWEL SOUNDS ARE HYPOACTIVE. SKIN INTACT WITH PREVENTATIVE OPTIFOAM APPLIED. WILL CONTINUE TO MONITOR AND ASSESS PT. Addendum: 12/17/19 at 0515 by REGI SANTIAGO RN RN RIGHT SIDED JEFF DRAIN IN PLACE. DRAIN COMPRESSED AND FUNCTIONING APPROPRIATELY.
[2019-12-16] MEDS ORDERED: AMIODARONE 450mg/250ml AE 250 ML IV SCH (19:59)
[2019-12-16 20:53] LABS: BUN/Creatinine Ratio 9.6; Calcium 6.9 mg/dL (8.5-10.1); Magnesium 2.2 mg/dL (1.6-2.6); Potassium 3.6 mmol/L (3.5-5.1)
[2019-12-16 20:56] LABS: Bilirubin, Total 0.6 mg/dL (0.2-1.0); Total Protein 5.1 g/dL (6.4-8.2)
[2019-12-17] VITALS (109 sets, daily range): BP systolic 86–126; BP diastolic 34–70
--- NOTE | 2019-12-17 03:30 | NUR ---
PT CARE GAVE PT CHG BATH. SKIN ASSESSED WITH NO NEW CHANGES AT THIS TIME. ANY CARE DONE. FULL GARCÍA AND GOWN CHANGE. ORAL CARE DONE AND PT TURNED. PT TOLERATED TURNING WELL. SATS MAINTAINING >92%.
[2019-12-17 04:24] LABS: Basophils # (auto) 0 10 ^3/uL (0-0.2); Eosinophils # (auto) 0.3 10 ^3/uL (0-0.8); Mean Corpuscular Hgb Conc. 32.8 g/dL (32.0-36.0); Monocytes # (auto) 0.4 10 ^3/uL (0-1.3); Monocytes % (auto) 2.6 % (0.0-12.0)
[2019-12-17 04:26] LABS: Basophils % (auto) 0.3 % (0.0-2.0); Eosinophils % (auto) 2.1 % (0.0-7.0); Hematocrit 25.3 % (41.0-53.0); Hemoglobin 8.3 g/dL (13.5-17.5); Lymphocytes # (auto) 0.4 10 ^3/uL (0.4-5.4); Lymphocytes % (auto) 2.7 % (10.0-50.0); Mean Corpuscular Hemoglobin 29.6 pg (28.0-32.0); Mean Corpuscular Volume 90.2 fL (80.0-100.0); Neutrophils # (auto) 13.3 10 ^3/uL (1.6-8.6); Neutrophils % (auto) 92.3 % (37.0-80.0); Nucleated Red Blood Cells % 0.1 %; Platelet Count (auto) 169 10^3/uL (140-450); Red Cell Distribution Width 13.4 % (11.8-14.3); White Blood Cell 14.4 10^3/uL (4.4-10.8)
[2019-12-17 04:41] LABS: Potassium 3.4 mmol/L (3.5-5.1)
[2019-12-17 04:43] LABS: BUN/Creatinine Ratio 9.3
[2019-12-17] MEDS: AMIODARONE 450mg/250ml AE 250 ML IV SCH ×2 (05:26→14:38)
[2019-12-17] MEDS: metroNIDAZOLE 500MG/100ML 100 ML IV SCH ×3 (05:26→22:12)
[2019-12-17] MEDS ORDERED: POTASSIUM CHL 20MEQ/100ML 100 ML IV ONE (06:15)
[2019-12-17] MEDS: PIPERACILLIN-TAZOB 3.375GM 100 ML IV SCH ×4 (06:38→23:31)
--- NOTE | 2019-12-17 07:35 | NUR ---
ASSESS- PT. LYING IN BED ON VENT SIZE# 7.5 ET, 25 AT THE LIP, AC-16, TV-675, PEEP-8, FIO2-60%. LUNGS CLEAR SUHAS. INSPIRATORY AND EXPIRATORY, DIMINISHED BASES SUHAS. PT. HAS VERY HYPOACTIVE GAG/COUGH REFLEX. NO MOVEMENT OF EXTREMITIES SEEN. RESPONDS TO PAINFUL/TACTILE STIMULI. ON VERSED GTT. AT 15 MG./HR. AND FENTANYL GTT. AT 200 MCG. ON LEVOPHED GTT. AT 10 MCG. A-LINE RT. FEMORAL INTACT WITH GOOD WAVEFORM. TLC RT. FEMORAL INTACT WITH CVP TO DISTAL PORT WITH GOOD WAVEFORM. ABD. SOFT, FLAT. BOWELS SOUNDS HYPOACTIVE ALL FOUR QUADRANTS. NGT RT. NARE TO LCS WITH BILE DRAINAGE. JEFF TO RT. SIDE OF ABD. WITH SANGINOUS DRAINAGE TO BULB SUCTION. 2 SM. INCISIONS TO MID-LINE ABD. WITH DSG. INTACT, WITH SM. AMOUNT DRIED BLOOD. F/C TO GRAVITY WITH CLEAR YELLOW URINE. RADIAL PULSES WEAK, PALPABLE SUHAS. 1 PLUS EDEMA ARMS/HANDS SUHAS. DORSALIS PEDAL PULSES WEAK, PALPABLE SUHAS. 1 PLUS EDEMA LE SUHAS. SCD'S SUHAS. LE. RECTAL PROBE IN PLACE. OPTIFOAM TO SACRUM PREVENTATIVE, SKIN INTACT. A-FIB, HR 90'S. ON AMIODARONE GTT. AT 0.5 MG./MIN.
--- NOTE | 2019-12-17 08:00 | NUR ---
A-LINE PRESSURES RT. FEMORAL DECREASED TO 80'S. INCREASED LEVOPHED GTT. TO 12 MCG. MONITORING BP.
[2019-12-17] MEDS: NOREPINEPHRINE 8 MG/250ML KIT 250 ML IV SCH ×2 (08:30→15:36)
--- NOTE | 2019-12-17 08:45 | NUR ---
A-LINE SBP INCREASED TO 90'S-100'S. CONTINUING TO MONITOR BP.
--- NOTE | 2019-12-17 09:44 | NUR ---
Respiratory note: INCREASED PT FIO2 BACK TO 60% DUE TO SPO2 OF 89%. MASHA DE JESUS MADE AWARE OF CHANGE.
[2019-12-17] MEDS: PANTOPRAZOLE 40 MG/10 ML VIAL INJ IV SCH (09:46)
[2019-12-17] MEDS: MIDAZOLAM DRIP 50 mg/50mL 50 ML IV SCH ×2 (09:47→14:39)
--- NOTE | 2019-12-17 10:00 | NUR ---
DR. RYDER Provider/Hospitalist at bedside. GAVE UPDATE ON PT. NEW ORDERS RECEIVED.
--- NOTE | 2019-12-17 10:00 | NUR ---
RECTAL TEMP INCREASED TO 100.0. PLACED ICE PACKS SUHAS. AXILLA. NO COVERS ON PT. FAN ON PT. MONITORING TEMP.
[2019-12-17] MEDS ORDERED: FUROSEMIDE 20 MG/2 ML VIAL IV ONE ×2 (10:15→15:15)
[2019-12-17] MEDS ORDERED: DEXTROSE (50%) 50ML SYRG IV PRN (10:30)
[2019-12-17] MEDS ORDERED: VANCOMYCIN PER PHARMACY 0 MG IV SCH (10:30)
[2019-12-17] MEDS: D5W/SOD CHLO 0.9% 1,000 ML IV SCH ×2 (10:43→21:42)
[2019-12-17] MEDS ORDERED: VANCOMYCIN 1GM/250ML 250 ML IV ONE (10:45)
[2019-12-17] MEDS: POTASSIUM CHL 20MEQ/100ML 100 ML IV SCH ×2 (11:40→13:40)
--- NOTE | 2019-12-17 11:45 | NUR ---
DR. CARLOS Provider/Hospitalist at bedside. GAVE UPDATE ON PT. NEW ORDERS RECEIVED.
[2019-12-17] MEDS: ACCU-CHEK COMFORT CURVE STRIP VI SCH ×3 (11:49→23:31)
[2019-12-17] MEDS: InsuLIN REG 1unit/0.01ml Soln (100units/ml) SC SCH ×3 (11:49→23:34)
--- NOTE | 2019-12-17 12:00 | NUR ---
TEMP NOW 100.6 RECTALLY. ICE PACKS REMAIN IN PLACE SUHAS. AXILLA. MONITORING TEMP.
--- NOTE | 2019-12-17 12:15 | NUR ---
DR. SILVERIO Provider/Hospitalist at bedside. GAVE UPDATE ON PT.
--- NOTE | 2019-12-17 12:25 | NUR ---
WOUND CARE NOTE: Added patient to wound care monitoring list due to Low Ilan score of 11 and intubation status. Patient is 64 years old male with admitting diagnosis of Cholelithiasis. Patient is resting in ICU bed in Rm. 103. Patient is intubated, sedated and mechanically ventilated. Patient appears to be in no pain using Sandoval Perry Faces Pain Scale. No open wound noted other than puncture/incision wounds to upper and distal medial abdomen and Rt lateral abdomen JEFF site with intact dressing. Patient is s/p Lap Cholecystectomy by Dr. Lazo. He's receiving BID/PRN cleaning and application of Barrier cream to sacrum with preventative Opti foam sacral dressing. RECOMMENDATION: Nursing to continue with BID/PRN cleaning and application of Barrier cream to sacral, buttocks per MD order, Dietary consult, frequent turning and repositioning schedule as condition permits, redistribute pressure points with pillows, elevate heels on pillows, continue monitoring by wound care while patient is intubated.
--- NOTE | 2019-12-17 12:50 | NUR ---
STARTED 1 UNIT PRBCS'S VIA TLC RT. FEMORAL PER DR. RYDER ORDER. CONSENT SIGNED PREVIOUSLY.
--- NOTE | 2019-12-17 14:00 | NUR ---
CT ANGIO CHEST WITH CONTRAST ORDERED BY DR. CARLOS. RT HAD DECREASED PT'S. FIO2 ON VENT FROM 60% TO 55% PREVIOUSLY AND 02 SATS DECREASED TO 88% AFTER 10-15 MIN. AND RT INCREASED FIO2 BACK TO 60 %. PT. REMAINS ON LEVOPHED GTT. SPOKE WITH DR. CARLOS CONCERN REGARDING GOING TO CT AND STABILITY OF PT. IF HE CAN TOLERATE IT AND DR. CARLOS SAID IT IS NOT STAT AND CAN BE DONE TOMORROW DEPENDING ON HOW PT. IS DOING. INFORMED RADIOLOGY. NEED CONSENT FROM FAMILY FOR IV CONTRAST.
--- NOTE | 2019-12-17 14:00 | NUR ---
SBP A-LINE ONE TEENS. TITRATED LEVOPHED GTT. DOWN TO 10 MCG. MONITORING BP.
--- NOTE | 2019-12-17 14:55 | NUR ---
ARIELA AT BS FOR US BIL. RANGEL
--- NOTE | 2019-12-17 15:00 | NUR ---
A-LINE PRESSURES RT. FEMORAL REMAINS IN ONE TEENS TO 120'S AT TIMES. CONTINUING TO MONITOR BP.
--- NOTE | 2019-12-17 15:09 | NUR ---
1 UNIT PRBC'S COMPLETED. NO ADVERSE REACTION. NO SIGNS OF FLUID OVERLOAD.
--- NOTE | 2019-12-17 15:24 | NUR ---
Nutrition Followup Note Wt 96.3kg Pt intubated and sedated. Pt is still NPO without alternate nutrition. Consider Jevity 1.2 at 60 ml/hr if EN support indicated and per MD approval Est energy needs 2216-4655 kcal/kg (25-30 kcal/kg IBW 67.3kg) Est protein needs 67-74g (1-1.1g/kg IBW 67.3kg) Will reassess prn Labs: Gluc 154H, Ca 7.0L, Alb 2.0L BM: Gas drain 100ml 12/16 Skin: BS 11 high risk incision abd full details in RN WC doc PES: Inadequate oral intake r/t current medical condition aeb pt intubated and sedated with NPO Comments: If pt NPO >48 hours consider alternate nutrition if EN support indicated consider Jevity 1.2 at 60 ml/hr 1) Advance diet as medically feasible 2) When diet advance, po intake >75% 3) F/u 2-3 days
--- NOTE | 2019-12-17 17:29 | NUR ---
Called/paged DANIELLE DIAZ called re:. Waiting for call back. Continue care.
--- NOTE | 2019-12-17 17:32 | NUR ---
returned call EMILY, DANIELLE returned call, updated on patient status and reason for call, orders received. Continue care.
[2019-12-17] MEDS: fentaNYL Drip 2500mCg/250mlNS 250 ML IV SCH (17:42)
--- NOTE | 2019-12-17 17:42 | NUR ---
TEMP 101.5 RECTALLY. MED. PT. WITH TYLENOL 650 MG. SUPPOSITORY MA. MONITORING TEMP. COOLING MEASURES IN PLACE.
[2019-12-17] MEDS: ACETAMINOPHEN 650 MG RECT SUPP PR PRN (17:46)
--- NOTE | 2019-12-17 18:44 | NUR ---
TEMP REMAINS 101.[address]OL[address] MEASURES IN PL[address]. MONITORING TEMP.
--- NOTE | 2019-12-17 19:48 | NUR ---
CARDIOLOGY CONSULT CALLED IN BY THIS RN PER MD RYDER'S ORDER.
--- NOTE | 2019-12-17 19:56 | NUR ---
CONSENT OBTAINED FOR CT WITH CONTRAST BY THIS RN. JACQUELINE, THE PTS DAUGHTER IN LAW CONSENTED VIA PHONE. ALL QUESTIONS AND CONCERNS ADDRESSED AT THIS TIME. UPDATED HER ON PT CONDITION AND PLAN OF CARE. CONSENT CONFIRMED BY SECOND NURSE, MASHA Cox
--- NOTE | 2019-12-17 20:00 | NUR ---
OPENING NOTE RECEIVED REPORT AND ASSUMED CARE OF PT. PT IS CURRENTLY ON MECHANICAL VENTILATOR AND SEDATED (SEE IV SPREADSHEET). COOLING MEASURES APPLIED FOR TEMP OF 101.7. PT UNRESPONSIVE TO PAINFUL STIMULI. PT WAS IN AFIB RVR AT CHANGE OF SHIFT YESTERDAY BUT CONVERTED TO SR AROUND 10 AM ON 12/16, AMIO RUNNING PER PROTOCOL. LEVOPHED RUNNING FOR BP SUPPORT. GENERALIZED EDEMA NOTED UPON ASSESSMENT. PULSES REGULAR, WEAK, BUT PALPABLE. ART-LINE IN PLACE TO R GROIN, ZEROED AND WORKING APPROPRIATELY. PT IS IN SYNCH WITH VENTILATOR AND TOLERATING WELL WITH SATS >95%. LUNGS ARE CTA AND DIMINISHED IN THE BASES. NO SIGNS OF DISTRESS NOTED AT THIS TIME. TWO MIDLINE ABDOMINAL INCISIONS, DRESSINGS ARE INTACT WITH MINIMAL DRAINAGE.RIGHT SIDED JEFF DRAIN IN PLACE. DRAIN COMPRESSED AND FUNCTIONING APPROPRIATELY. WALTON CATHETER IN PLACE AND DRAINING APPROPRIATELY. BOWEL SOUNDS ARE HYPOACTIVE. SKIN INTACT WITH PREVENTATIVE OPTIFOAM APPLIED. WILL CONTINUE TO MONITOR AND ASSESS PT.
[2019-12-17] MEDS: VANCOMYCIN 1GM/250ML 250 ML IV SCH (21:12)
[2019-12-18] VITALS (103 sets, daily range): BP systolic 92–172; BP diastolic 42–83
[2019-12-18] MEDS: ACETAMINOPHEN 650 MG RECT SUPP PR PRN (01:26)
--- NOTE | 2019-12-18 03:00 | NUR ---
AMIO HELD FOR BRADYCARDIA. HR [id number] BEATS/MIN. COOLING MEASURES D/C'D FOR DECREASING TEMP.
[2019-12-18 04:20] LABS: Basophils # (auto) 0 10 ^3/uL (0-0.2); Basophils % (auto) 0.1 % (0.0-2.0); Eosinophils # (auto) 0.3 10 ^3/uL (0-0.8); Eosinophils % (auto) 1.8 % (0.0-7.0); Hematocrit 28.2 % (41.0-53.0); Hemoglobin 9.3 g/dL (13.5-17.5); Lymphocytes # (auto) 0.3 10 ^3/uL (0.4-5.4); Lymphocytes % (auto) 1.8 % (10.0-50.0); Mean Corpuscular Hemoglobin 29.4 pg (28.0-32.0); Mean Corpuscular Hgb Conc. 33.1 g/dL (32.0-36.0); Mean Corpuscular Volume 88.9 fL (80.0-100.0); Monocytes # (auto) 0.5 10 ^3/uL (0-1.3); Monocytes % (auto) 2.7 % (0.0-12.0); Neutrophils # (auto) 15.5 10 ^3/uL (1.6-8.6); Neutrophils % (auto) 93.6 % (37.0-80.0); Nucleated Red Blood Cells % 0.1 %; Platelet Count (auto) 203 10^3/uL (140-450); Red Blood Cells 3.18 10^6/uL (4.5-5.90); Red Cell Distribution Width 14.1 % (11.8-14.3); White Blood Cell 16.5 10^3/uL (4.4-10.8)
[2019-12-18 04:40] LABS: Calcium 7.3 mg/dL (8.5-10.1); Potassium 3.8 mmol/L (3.5-5.1)
[2019-12-18 04:45] LABS: Albumin 1.9 g/dL (3.4-5.0); Bilirubin, Total 0.7 mg/dL (0.2-1.0); Magnesium 2.3 mg/dL (1.6-2.6); Total Protein 5.3 g/dL (6.4-8.2)
[2019-12-18 05:24] LABS: BUN/Creatinine Ratio 8.9
[2019-12-18] MEDS: InsuLIN REG 1unit/0.01ml Soln (100units/ml) SC SCH ×4 (06:00→23:19)
[2019-12-18] MEDS: metroNIDAZOLE 500MG/100ML 100 ML IV SCH (06:12)
[2019-12-18] MEDS: PIPERACILLIN-TAZOB 3.375GM 100 ML IV SCH ×3 (06:12→18:25)
[2019-12-18] MEDS: ACCU-CHEK COMFORT CURVE STRIP VI SCH ×4 (06:13→23:18)
--- NOTE | 2019-12-18 08:00 | NUR ---
INITIAL ROUNDS; Patient no longer bradycardic, resumed Amiodarone drip at 0.5 mg. Patient core temperature 100.0, re-warming measures stopped and cooling measures implemented.
[2019-12-18] MEDS: VANCOMYCIN 1GM/250ML 250 ML IV SCH ×2 (08:44→18:25)
[2019-12-18] MEDS: NOREPINEPHRINE 8 MG/250ML KIT 250 ML IV SCH (08:44)
[2019-12-18] MEDS: MIDAZOLAM DRIP 50 mg/50mL 50 ML IV SCH (09:19)
[2019-12-18] MEDS ORDERED: FUROSEMIDE 20 MG/2 ML VIAL IV SCH (10:00)
[2019-12-18] MEDS: FLUCONAZOLE 200MG/100ML 100 ML IV SCH ×2 (10:25→12:45)
[2019-12-18] MEDS: AMIODARONE 450mg/250ml AE 250 ML IV SCH (10:25)
[2019-12-18] MEDS: PANTOPRAZOLE 40 MG/10 ML VIAL INJ IV SCH (10:26)
[2019-12-18] MEDS ORDERED: POTASSIUM CHL 20MEQ/100ML 100 ML IV ONE (11:45)
[2019-12-18] MEDS ORDERED: FUROSEMIDE 20 MG/2 ML VIAL IV ONE (11:45)
--- NOTE | 2019-12-18 11:50 | NUR ---
AT BEDSIDE: Dr. Lazo at bedside, new orders received.
[2019-12-18] MEDS ORDERED: TPN PER PHARMACY 0 ML IV SCH (12:00)
[2019-12-18] MEDS: D5W/SOD CHLO 0.9% 1,000 ML IV SCH (12:45)
[2019-12-18 13:02] LABS: Phosphorus 1.8 mg/dL (2.5-4.90); Pre Albumin 6.5 mg/dL (20.0-40.0)
--- NOTE | 2019-12-18 13:40 | NUR ---
AT BEDSIDE: Dr. Washington at bedside, new orders received.
[2019-12-18] MEDS ORDERED: D5W/SOD CHLO 0.9% 1,000 ML IV SCH ×2 (13:45→20:00)
[2019-12-18] MEDS ORDERED: POTASSIUM PHOSPHATE 44 MEQ in D5W 5% 250 ML IV ONE (14:00)
--- NOTE | 2019-12-18 14:20 | NUR ---
AT BEDSIDE: Dr. Alva at bedside, orders received for Digoxin for rate control. Patient A-fib rate as high at 170's.
[2019-12-18] MEDS ORDERED: DIGOXIN (250MCG/ML) 2 ML AMPULE IV ONE ×2 (14:30→15:00)
[2019-12-18] MEDS ORDERED: DIGOXIN (250MCG/ML) 2 ML AMPULE ONE ×2 (14:30→15:34)
[2019-12-18] MEDS ORDERED: LIDOCAINE 2%HCL (LOCAL ANESTH.) INJ 20ML MDV ONE (14:35)
[2019-12-18] MEDS ORDERED: EPINEPHrine HCL 1 MG/1 ML AMP ONE (14:35)
[2019-12-18] MEDS ORDERED: SODIUM CHLORIDE LOCK 0 ML ONE (14:35)
[2019-12-18] MEDS ORDERED: LIDOCAINE HCL 2% TOP JELLY 5ML TOP ONE (14:35)
[2019-12-18] MEDS ORDERED: GLYCOPYRROLATE 0.2 MG/ML 1ML VIAL ONE (14:41)
[2019-12-18] MEDS ORDERED: ACETYLCYSTEINE 10 %(100MG/ML) SOL 4ML NEB ONE (14:45)
[2019-12-18] MEDS: ALBUMIN 25% 50 ML IV SCH ×2 (15:30→21:22)
[2019-12-18] MEDS: fentaNYL Drip 2500mCg/250mlNS 250 ML IV SCH (16:00)
--- NOTE | 2019-12-18 16:00 | NUR ---
ROUNDS; Partial linen change and skin care provided. Also provided oral care and combed hair at this time.
[2019-12-18 16:13] LABS: Urine Bacteria NONE SEEN /hpf (None Seen); Urine Blood TRACE /uL (Negative); Urine Specific Gravity 1.014 (1.001-1.035); Urine WBC <1 /hpf (0 - 3)
--- NOTE | 2019-12-18 17:00 | NUR ---
assessment Patient is a 64 year old male who is on a vent. Per patients daughter in law Emir prior to admission patient lived home with his and was independent. Per Emir patient was having severe abdominal pains and called 911. Patient was admitted. Patients PCP is in [facility]. I informed Emir patient post discharge needs to be determined after extubation and prior to discharge. Emir verbalized understanding. Addendum: 12/19/19 at 1703 by Loretta WHALEN Amended: Links added.
[2019-12-18] MEDS ORDERED: ACETYLCYSTEINE 20%(200MG/ML) SOL 4ML ONE (17:15)
[2019-12-18] MEDS ORDERED: LIDOCAINE HCL 2 % INJ 2ML MPF ONE (17:26)
[2019-12-18] MEDS ORDERED: SUCCINYLCHOLINE CHLORIDE 20 MG/ML 10ML VIAL IV ONE ×2 (17:54→18:15)
[2019-12-18] MEDS ORDERED: DEXTROSE (50%) 50ML SYRG IV SCH (18:00)
--- NOTE | 2019-12-18 18:55 | NUR ---
Respiratory note: BRONCHOSCOPY PERFORMED BY DR. CARLOS WITH NO COMPLICATIONS NOTED. SECRETIONS SUCTIONED AND OBTAINED. SECRETIONS IN RIGHT LUNG LARGE/THICK AND CRUM. PT SPO2 IS AT 94% AFTER TITRATING FIO2 FROM 60%-50%. WILL CONTINUE TO MONITOR PT T/O SHIFT.
[2019-12-18] MEDS ORDERED: TPN PER PHARMACY IV NR ×9 (20:00)
--- NOTE | 2019-12-18 23:15 | NUR ---
Temp 98.1, cooling blanket temp off
--- NOTE | 2019-12-18 23:50 | NUR ---
Called CT dept to inform of pending CT chest and when is their available time to perform the procedure, no one is answering the phone. Will attempt to call later
[2019-12-19] VITALS (105 sets, daily range): BP systolic 88–185; BP diastolic 41–110
[2019-12-19] MEDS: PIPERACILLIN-TAZOB 3.375GM 100 ML IV SCH ×5 (00:14→23:43)
[2019-12-19] MEDS: AMIODARONE 450mg/250ml AE 250 ML IV SCH ×2 (00:55→16:18)
--- NOTE | 2019-12-19 00:55 | NUR ---
Dressing Cleansed surgical incisions and JEFF site, all dressings changed aseptically. Note: small midline incisions x 2 intact with chayo, noted to be dry and intact JEFF site still with moderate amount of bleeding at the stump
--- NOTE | 2019-12-19 01:37 | NUR ---
Received a call from [facility], with order for labs in am: CMP, Mg, Ph, triglyceride
[2019-12-19] MEDS: VANCOMYCIN 1GM/250ML 250 ML IV SCH ×3 (01:44→19:34)
--- NOTE | 2019-12-19 02:00 | NUR ---
Morning care done. CHG wipes done, skin reassessed for any changes, repositioned for comfort
--- NOTE | 2019-12-19 03:05 | NUR ---
Desaturation 88-89%, suctioned secretions as needed,minimal amount of oral secretions noted, Roberto RT at bedside, repositioned on left lateral,sat went up to 93-95%, FiO2 increased to 60%
--- NOTE | 2019-12-19 03:30 | NUR ---
Temp slowly increasing, 99.3, cooling blanket turned on, ice packs provided
[2019-12-19 04:19] LABS: Basophils # (auto) 0 10 ^3/uL (0-0.2); Basophils % (auto) 0.1 % (0.0-2.0); Eosinophils # (auto) 0.2 10 ^3/uL (0-0.8); Hematocrit 30.2 % (41.0-53.0); Hemoglobin 9.8 g/dL (13.5-17.5); Lymphocytes # (auto) 0.5 10 ^3/uL (0.4-5.4); Lymphocytes % (auto) 3.3 % (10.0-50.0); Mean Corpuscular Hemoglobin 28.8 pg (28.0-32.0); Mean Corpuscular Hgb Conc. 32.5 g/dL (32.0-36.0); Mean Corpuscular Volume 88.7 fL (80.0-100.0); Monocytes # (auto) 0.6 10 ^3/uL (0-1.3); Monocytes % (auto) 3.5 % (0.0-12.0); Neutrophils # (auto) 14.6 10 ^3/uL (1.6-8.6); Neutrophils % (auto) 92.1 % (37.0-80.0); Nucleated Red Blood Cells % 0.6 %; Platelet Count (auto) 217 10^3/uL (140-450); Red Blood Cells 3.41 10^6/uL (4.5-5.90); Red Cell Distribution Width 14.7 % (11.8-14.3); White Blood Cell 15.9 10^3/uL (4.4-10.8)
[2019-12-19 04:38] LABS: Magnesium 2.2 mg/dL (1.6-2.6); Potassium 3.9 mmol/L (3.5-5.1)
[2019-12-19 04:44] LABS: BUN/Creatinine Ratio 10.5; Bilirubin, Total 0.6 mg/dL (0.2-1.0); Calcium 7.5 mg/dL (8.5-10.1); Phosphorus 1.8 mg/dL (2.5-4.90); Total Protein 5.6 g/dL (6.4-8.2)
--- NOTE | 2019-12-19 04:44 | NUR ---
Received a call from dtr in law, updated on pt's status and POC, all questions and concerns were addressed, verbalized understanding
[2019-12-19] MEDS: ALBUMIN 25% 50 ML IV SCH (05:16)
--- NOTE | 2019-12-19 05:44 | NUR ---
Oral care done
[2019-12-19] MEDS: InsuLIN REG 1unit/0.01ml Soln (100units/ml) SC SCH ×4 (06:00→23:52)
--- NOTE | 2019-12-19 06:00 | NUR ---
Levophed off, SBP maintained bet 100's- 120's
[2019-12-19] MEDS: ACCU-CHEK COMFORT CURVE STRIP VI SCH ×4 (06:27→23:48)
--- NOTE | 2019-12-19 08:16 | NUR ---
FIO2 INCREASED TO 80% PER ABG RESULTS.
--- NOTE | 2019-12-19 08:41 | NUR ---
CENTRAL LINE, CVP, A LINE DRESSING CHANGE ARTERIAL LINE AND CVP LINES, NS, DRESSINGS WERE ALL CHANGED PER PROTOCOL. CENTRAL LINE DRESSING WAS CHANGED WITH ASEPTIC TECHNIQUE. PATIENT TOLERATED WELL.
--- NOTE | 2019-12-19 09:34 | NUR ---
FIO2 INCREASED TO 100% FIOI2, SP02 95%.
[2019-12-19] MEDS: FUROSEMIDE 20 MG/2 ML VIAL IV SCH (10:52)
[2019-12-19] MEDS: FLUCONAZOLE 200MG/100ML 100 ML IV SCH ×2 (10:53→11:54)
[2019-12-19] MEDS: PANTOPRAZOLE 40 MG/10 ML VIAL INJ IV SCH (10:53)
[2019-12-19] MEDS ORDERED: SODIUM PHOSPHATES 40 MEQ in D5W 5% 250 ML IV ONE (11:00)
[2019-12-19] MEDS: fentaNYL Drip 2500mCg/250mlNS 250 ML IV SCH (11:02)
--- NOTE | 2019-12-19 11:25 | NUR ---
PER XRAY ETT 7 ABOVE LASHAWN. ETT WAS ADVANCE TO 26CM AT THE LIPLINE. MASHA STAFFORD MADE AWARE.
--- NOTE | 2019-12-19 11:26 | NUR ---
Nutrition Followup Note Wt: 96.3 kg Pt intubated and sedated. Pt is currently NPO initiated on PN support from last night @ 45 ml/hr providing 1150 kcals and 50 gm proteins. pt with inadequate PN support as it meets 56-61% kcals and 67-74% proteins Est energy needs 8829-8397 kcal/kg (25-30 kcal/kg IBW 67.3kg) Est protein needs 67-74g (1-1.1g/kg IBW 67.3kg) Will reassess prn Labs: GLU 155 H, CA 7.5 L, ALB 2.0 L, PREALB 6.5 L, TG wnl BM: Gas drain 30ml yesterday Skin: BS 12 high risk incision abd full details in RN WC doc PES: Inadequate oral intake r/t current medical condition aeb pt intubated and sedated with NPO Comments: 1) Advance diet as medically feasible 2) advance PN support to meet > 75% of needs. 3) F/u 2-3 days
[2019-12-19] MEDS: SODIUM CHLORIDE 0.9% 1,000 ML IV SCH (13:45)
--- NOTE | 2019-12-19 15:30 | NUR ---
FIO2 TITRATED DOWN TO 90%, SPO2 97%.
--- NOTE | 2019-12-19 18:24 | NUR ---
Respiratory note: RECEIVED PT ON VENT V11. VENT CONNECTED TO RED OUTLET AND O2 SOURCE ALARMS ARE SET AND AUDIBLE. AMBU BAG AND MASK AT BEDSIDE. BS ARE FINE COURSE SXD FOR SCANT CRUM. CURRENT TEMP READING AT IS 100.2F. WILL CONTINUE TO MONITOR.
--- NOTE | 2019-12-19 19:40 | NUR ---
MD CARLOS AT BEDSIDE TO ASSESS PT AND UPDATE PLAN OF CARE. Addendum: 12/19/19 at 2130 by REGI SANTIAGO RN RN PER RT, TERRANCE SAID POSSIBLE BRONCH TOMORROW AM. CALLED AND LEFT MESSAGE TO CLARIFY PLAN OF CARE. AWAITING CALL BACK.
[2019-12-19] MEDS ORDERED: TPN PER PHARMACY IV NR ×11 (20:00)
--- NOTE | 2019-12-19 20:07 | NUR ---
Respiratory note: AT BEDSIDE FOR ROUTINE VENT CHECK. LAVAGED SXD VIA ETT FOR BROWN/GREEN LARGE THICK MUCUS PLUG. RN REIG AT BEDSIDE. NO VENT CHANGES DONE WILL CONTINUE TO MONITOR. CURRENT TEMP IS 99.9F.
--- NOTE | 2019-12-19 20:50 | NUR ---
FAMILY CALL CALLED PTS DAUGHTER IN LAW, JACQUELINE TO GIVE UPDATE ON PT CONDITION AND PLAN OF CARE.CONSENT OBTAINED FOR POSSIBLE BRONCH TOMORROW AM AND VERIFIED BY SECOND RN (MARLON Cox) VIA TELEPHONE. ALL QUESTIONS AND CONCERNS ADDRESSED AT THIS TIME.
--- NOTE | 2019-12-19 22:26 | NUR ---
PT UNABLE TO TOLERATE TURNING AT THIS TIME. PT DESATS TO 88% SP02 WHILE ON 90% FI02. WILL CONTINUE TO ASSESS PT TOLERANCE TO TURNING.
[2019-12-20] VITALS (106 sets, daily range): BP systolic 88–135; BP diastolic 40–70
--- NOTE | 2019-12-20 00:13 | NUR ---
Respiratory note: AT BEDSIDE FOR ROUTINE VENT CHECK. NO CHANGES DONE WILL CONTINUE TO MONITOR. SXD VIA ETT FOR SCANT CRUM. CURRENT TEMP IS 98.8F.
[2019-12-20] MEDS: fentaNYL Drip 2500mCg/250mlNS 250 ML IV SCH ×2 (00:59→10:58)
--- NOTE | 2019-12-20 02:32 | NUR ---
Respiratory note: At bedside for routine vent check, hme and sxd jensen changed at this time. Bs are course sxd via ett for no return. Sxd with lavage x2 for copious of thick brown/green/hopson secretions. Communicated with MASHA Goldberg on findings.
--- NOTE | 2019-12-20 03:15 | NUR ---
PT CARE PT STILL UNABLE TO TOLERATE TURNING. SP02 IS MAINTAINING 90-92% ON 90% FI02. CHG BATH AND GOWN CHANGE DONE. ORAL CARE DONE. ALL EXTREMITIES OFFLOADED WITH PILLOWS. Addendum: 12/20/19 at 0318 by REGI SANTIAGO RN RN UNABLE TO COMPLETE FULL GARCÍA CHANGE. PILLOW CASES ALL CHANGED.
[2019-12-20 04:15] LABS: Basophils # (auto) 0 10 ^3/uL (0-0.2); Basophils % (auto) 0.1 % (0.0-2.0); Eosinophils # (auto) 0.1 10 ^3/uL (0-0.8); Eosinophils % (auto) 1.1 % (0.0-7.0); Hematocrit 29.5 % (41.0-53.0); Hemoglobin 9.7 g/dL (13.5-17.5); Lymphocytes # (auto) 0.4 10 ^3/uL (0.4-5.4); Lymphocytes % (auto) 3.1 % (10.0-50.0); Mean Corpuscular Hemoglobin 29.2 pg (28.0-32.0); Mean Corpuscular Hgb Conc. 32.9 g/dL (32.0-36.0); Mean Corpuscular Volume 88.5 fL (80.0-100.0); Monocytes # (auto) 0.7 10 ^3/uL (0-1.3); Monocytes % (auto) 5.4 % (0.0-12.0); Neutrophils # (auto) 11.5 10 ^3/uL (1.6-8.6); Neutrophils % (auto) 90.3 % (37.0-80.0); Nucleated Red Blood Cells % 0.7 %; Platelet Count (auto) 222 10^3/uL (140-450); Red Blood Cells 3.33 10^6/uL (4.5-5.90); Red Cell Distribution Width 14.8 % (11.8-14.3); White Blood Cell 12.7 10^3/uL (4.4-10.8)
[2019-12-20 04:38] LABS: Calcium 7.5 mg/dL (8.5-10.1); Magnesium 2.6 mg/dL (1.6-2.6); Potassium 4.2 mmol/L (3.5-5.1)
[2019-12-20 04:43] LABS: BUN/Creatinine Ratio 15.3; Bilirubin, Total 0.6 mg/dL (0.2-1.0); Phosphorus 2.2 mg/dL (2.5-4.90); Total Protein 5.7 g/dL (6.4-8.2)
[2019-12-20] MEDS: VANCOMYCIN 1GM/250ML 250 ML IV SCH ×3 (04:54→19:03)
[2019-12-20] MEDS: AMIODARONE 450mg/250ml AE 250 ML IV SCH ×2 (05:11→20:31)
[2019-12-20] MEDS: ACCU-CHEK COMFORT CURVE STRIP VI SCH ×4 (05:28→23:40)
[2019-12-20] MEDS: InsuLIN REG 1unit/0.01ml Soln (100units/ml) SC SCH ×4 (05:41→23:45)
[2019-12-20] MEDS: PIPERACILLIN-TAZOB 3.375GM 100 ML IV SCH ×4 (05:42→23:40)
--- NOTE | 2019-12-20 08:00 | NUR ---
AM ASSESSMENT COMPLETED . ALL GTTS VERIFIED. PT VERY FRAIL, PT NOT BEING ABLE TO BE REPOSITIONED IN BED D/T HIGH O2 DEMAND. PT REQUIRING 90 % FIO2, PT DESATS WITH INCREASED ACTIVITY OR ADL'S. PT'S SPO2 DROPS WHEN HE IS BEING SUCTIONED OR WHEN ORAL CARE IS PERFORMED. PT HAS COPIOUS ORAL AND ENDOTRACHEAL SECRETIONS THAT HAVE BLOOD CLOTS, SECRETIONS ARE THICK AND CRUM. SECRETIONS ARE ALSO LOCATED ON THE BACK OF HIS THROAT. PT'S RT AC IV INFILTRATED , THE OTHER IV OUTDATED BOTH IV'S NEED REPLACING. PT CURRENTLY SEDATED ON FENTANYL AT 200 MCG/HR BUT NOT SYNCHRONIZING WITH VENTILATOR, PT NEEDS ADDITIONAL SEDATION. PT IS SUPPOSED TO HAVE A BRONCHOSCOPY TODAY, PT HAS LOW PO2 48.6 ON 90% FI2. I'LL CALL MANIFEST CLERK TO NOTIFY HIM OF ABG RESULTS AND TO FIND OUT ABOUT BRONCHOSCOPY PLAN.
--- NOTE | 2019-12-20 08:25 | NUR ---
NOTIFIED DR. CARLOS OF ABG RESULTS AND INCREASED O2 DEMAND. FIO2 INCREASED TO 100%. REQUESTED TO ADD VERSED FOR SEDATION. MD AGREED. HE REQUESTED FOR ME TO CALL OR TO SCHEDULE A BRONCHOSCOPY BEKAH, NEXT AVAILABLE OPENING.
--- NOTE | 2019-12-20 08:30 | NUR ---
COOLING BLANKET TURNED ON, FOR TEMP OF 101.8 RECTALLY. ICE PACKS APPLIED TO BOTH ARM PITS AND PT'S GROIN.
--- NOTE | 2019-12-20 08:31 | NUR ---
BRONCHOSCOPY SCHEDULED WITH DR. CARLOS FOR 11 AM WITH HERON FROM OR. PT'S CONSENT ALREADY OBTAINED BY DATABASE MARKETING SPECIALIST.
[2019-12-20] MEDS ORDERED: ACETYLCYSTEINE 20%(200MG/ML) SOL 4ML NEB ONE (08:45)
[2019-12-20] MEDS ORDERED: SODIUM CHLORIDE LOCK 0 ML ONE (08:49)
[2019-12-20] MEDS ORDERED: LIDOCAINE HCL 2% TOP JELLY 5ML TOP ONE (08:49)
[2019-12-20] MEDS ORDERED: EPINEPHrine HCL 1 MG/1 ML AMP ONE (08:49)
[2019-12-20] MEDS ORDERED: LIDOCAINE 2%HCL (LOCAL ANESTH.) INJ 20ML MDV ONE (08:49)
[2019-12-20] MEDS: MIDAZOLAM DRIP 50 mg/50mL 50 ML IV SCH ×3 (08:57→20:31)
[2019-12-20] MEDS: ACETAMINOPHEN 650 MG RECT SUPP PR PRN (09:11)
--- NOTE | 2019-12-20 09:11 | NUR ---
THERMOREGULATION MEDICATED WITH TYLENOL SUPPOSITORY FOR TEMP OF 102.1
--- NOTE | 2019-12-20 10:15 | NUR ---
THERMOREGULATION PT'S TEMP DECREASING TO 101. 3 R
[2019-12-20] MEDS: PANTOPRAZOLE 40 MG/10 ML VIAL INJ IV SCH (10:40)
[2019-12-20] MEDS: FLUCONAZOLE 200MG/100ML 100 ML IV SCH ×2 (10:40→14:29)
[2019-12-20] MEDS: FUROSEMIDE 20 MG/2 ML VIAL IV SCH (10:41)
[2019-12-20] MEDS ORDERED: ROCURONIUM 10MG/ML 10ML VIAL IV ONE (10:55)
[2019-12-20] MEDS ORDERED: SODIUM PHOSPHATES 20 MEQ in SODIUM CHL 0.9% 100 ML IV ONE (11:00)
--- NOTE | 2019-12-20 11:00 | NUR ---
OR CREW AT BED SIDE. ALL EQUIPMENT READY SET UP TO GO. WAITING FOR DR. CARLOS TO SHOW UP FOR PROCEDURE RT READY BY HER TELEPHONE.DR RYDER ROUNDED ON PT EARLIER. I UPDATED HER ON DR. CARLOS PLAN FOR BRONCHOSCOPY,PT'S INCREASED O2 DEMAND, PT'S INCREASED TEMP. 102.4R. ORDERED TO COLLECT A SPUTUM AND A URINE. STATES "PT ALREADY GOT BLOOD CULTURES COLLECTED YESTERDAY. A-LINE AND CENTRAL LINE ARE NOT THAT OLD"
--- NOTE | 2019-12-20 11:05 | NUR ---
DR. CARLOS CALL, HE IS RUNNING A LITTLE LATE FROM A HOSPITAL EMERGENCY. I NOTIFIED OR CREW AND RT.
--- NOTE | 2019-12-20 11:15 | NUR ---
THERMOREGULATION TEMP NOW DOWN TO 99.7 WITH COOLING BLANKET, ATB'S AND TYLENOL. BCX , URINE CX, AND SPUTUM ALL SENT TODAY. DR. CARLOS AND DR. RYDER ARE BOTH AWARE.
[2019-12-20] MEDS: SODIUM CHLORIDE 0.9% 1,000 ML IV SCH (14:29)
--- NOTE | 2019-12-20 14:30 | NUR ---
RT AT BEDSIDE CHANGING VENTILATOR TO APRV AT 100 % FIO2 REFER TO RT DOCUMENTATION.
--- NOTE | 2019-12-20 15:29 | NUR ---
DR. CARLOS CALLED TO GET AN UPDATE ON PT'S CONDITION. SEE IF PT HAD A FOLLOW UP ABG S/P APVR VENTILATOR CHANGE. HE ALSO WANT A FOLLOW UP CXR AT 1630 TO MAKE SURE THE LUNG PRESSURE ARE OK. THAT THE LUNGS ARE NOT COLLAPSED. RT COLLECTING ABG AT THIS TIME. I TOLD RT TO CALL DR. CARLOS WITH ABG RESULTS.
--- NOTE | 2019-12-20 17:20 | NUR ---
DR. CARLOS ROUNDING ON PT AGAIN , HE DECREASED THE FIO2 ON PT TO 95% HE REVIEWED THE CXR THAT WAS TAKEN AT 1630. MD AWARE THAT PT'S LUNG SOUNDS ARE MORE COARSE. PT UNABLE TO TOLERATE ACTIVITY, PT GOT INCREASED WORKED OF BREATHING WHEN PCXR WAS TAKEN, HE WAS USING NECK MUSCLES TO BREATH AND THE R-R ALARM WAS READING TOO HIGH RT JENS WAS MADE AWARE OF OCCURRENCE AND SHE WITNESS PT'S WOB.
--- NOTE | 2019-12-20 18:17 | NUR ---
Respiratory note: CRITICAL ABG RESULTS REPORTED TO DR. CARLOS. NEW VENT ORDERS GIVEN, ABG IN ONE HOUR. RN AWARE. WILL CONTINUE TO MONITOR.
--- NOTE | 2019-12-20 18:30 | NUR ---
DECREASED VERSED FROM 10 MG/HR TO 5 MG /HR PER DR. CARLOS REQUEST. HE HAD TOLD RT THAT PT WAS A LITTLE TOO OVERSEDATED FOR APRV MODE.
--- NOTE | 2019-12-20 19:05 | NUR ---
DR. SILVERIO CALLED TO GET UPDATED ON BRONCHOSCOPY FINDINGS I UPDATED HIM ON FINDINGS. WANTS PT TO BE TESTED FOR COVID 19 HOWEVER HE DOESN'T WANT PT TO BE PLACED ON ISOLATION AT THIS TIME UNLESS IF RESULTS COME BACK +.
--- NOTE | 2019-12-20 19:30 | NUR ---
REPORT GIVEN TO MASHA DELUNA, I ENDORSE FOR HER TO COLLECT THE COVD 19 SWAB AND SEND TO MICRO.
--- NOTE | 2019-12-20 19:38 | NUR ---
Respiratory note: DR. CARLOS NOTIFIED OF CRITICAL ABG RESULTS. NEW VENT ORDERS GIVEN, ABG TO FOLLOW IN ONE HOUR
--- NOTE | 2019-12-20 19:38 | NUR ---
MD CARLOS CALL MADE HIM AWARE OF PTS LATEST ABG RESULTS. NEW ORDERS RECEIVED: SET PRESSURE HIGH TO 34 CM H20 AND DO ABG 1 HOUR AFTER SETTING CHANGE. RT HEBERT MADE AWARE.
[2019-12-20] MEDS ORDERED: TPN PER PHARMACY IV NR ×11 (20:00)
--- NOTE | 2019-12-20 20:45 | NUR ---
COVID SWAB COLLECTED AND WALKED TO LAB BY THIS RN PER MD SILVERIO ORDERS. MD CARLOS MADE AWARE. PENDING RESULTS.
--- NOTE | 2019-12-20 21:09 | NUR ---
Respiratory note: MESSAGE LEFT FOR DR. CARLOS REGARDING CRITICAL ABG RESULTS. AWAITING CALL BACK.
--- NOTE | 2019-12-20 21:14 | NUR ---
MD CARLOS CALL MD CALLED, MADE HIM AWARE OF COVID 19 SWAB SEND. SAID TO MONITOR PT FOR SUBCUTANEOUS EMPHYSEMA AND IF S/S PRESENT TO GET STAT CXRAY AND ABG AND CALL HIM. WILL CONTINUE TO MONITOR. NO S/S PRESENT AT THIS TIME.
--- NOTE | 2019-12-20 21:28 | NUR ---
RESPIRATORY ASSESSMENT PT CURRENTLY ON APRV MODE, BEING MANAGED BY RT HEBERT. ON FI02 OF 85% AND SP02 IS READING 99% ON MONITOR. LUNG SOUNDS ARE CLEAR IN BU LOBES AND DIMINISHED IN BILATERAL BASES. ORAL CARE DONE AND MODERATE AMOUNT OF CRUM/BLOOD TINGED SECRETIONS SUCTIONED FROM BACK OF PTS THROAT. NO S/S OF SUBQ EMPHYSEMA PRESENT WHEN ASSESSED. BREATHING IS UNLABORED WITH NO S/S OF DISTRESS. SEDATION CURRENTLY RUNNING AT VERSED OF 4MG AND FENT OF 175MCG TO PROMOTE SPONTANEOUS BREATHING. WILL CONTINUE TO MONITOR.
--- NOTE | 2019-12-20 22:55 | NUR ---
RN RESPIRATORY ASSESSMENT PT STILL ON PREVIOUS VENT SETTINGS (REFER TO RT DOCUMENTATION) AND FI02 OF 85%. 02 SATS MAINTAINING >95%. UPON AUSCULTATION, WHEEZY LUNG SOUNDS HEARD IN RIGHT UPPER LOBE. SLIGHT CREPITUS FELT WHERE ABNORMAL LUNG SOUNDS HEARD AND VERIFIED BY MASHA ROTHMAN. CHEST XRAY ORDER PLACED AND AWAITING RADIOLOGY ARRIVAL ON UNIT. WILL CONTINUE TO MONITOR AND REASSESS.
[2019-12-21] VITALS (104 sets, daily range): BP systolic 95–158; BP diastolic 46–96
--- NOTE | 2019-12-21 00:39 | NUR ---
RN RESPIRATORY ASSESSMENT PT LUNG SOUNDS CLEAR/DIMINISHED TO AUSCULTATION WITH NO CHANGES TO VENT SETTINGS. PREVIOUSLY FELT MINIMAL RIGHT UPPER LOBE CREPITUS HAS RESOLVED AND NO OTHER AREAS FELT AT THIS TIME. NO OTHER S/S OF SUBCUTANEOUS EMPHYSEMA PRESENT. CHEST XRAY RESULTS WERE NEGATIVE FOR PNEUMOTHORAX. WILL CONTINUE TO MONITOR AND REASSESS.
--- NOTE | 2019-12-21 00:44 | NUR ---
PT ACTIVITY/TURNING PT STILL UNABLE TO TURN AT THIS TIME DUE TO FI02 OF 85%. SATS MAINTAINING WELL AT THIS TIME. ALL LIMBS REPOSITIONED AND ELEVATED. Addendum: 12/21/19 at 0204 by REGI SANTIAGO RN RN UNABLE TO ASSESS SKIN POSTERIORLY
[2019-12-21] MEDS: VANCOMYCIN 1GM/250ML 250 ML IV SCH ×3 (02:07→18:05)
--- NOTE | 2019-12-21 04:19 | NUR ---
Respiratory note: TITRATED FIO2 TO 70%.
[2019-12-21 04:34] LABS: Basophils # (auto) 0 10 ^3/uL (0-0.2); Basophils % (auto) 0.2 % (0.0-2.0); Eosinophils # (auto) 0.1 10 ^3/uL (0-0.8); Eosinophils % (auto) 0.3 % (0.0-7.0); Hematocrit 28.6 % (41.0-53.0); Hemoglobin 9.3 g/dL (13.5-17.5); Lymphocytes # (auto) 0.5 10 ^3/uL (0.4-5.4); Lymphocytes % (auto) 3.5 % (10.0-50.0); Mean Corpuscular Hemoglobin 28.9 pg (28.0-32.0); Mean Corpuscular Hgb Conc. 32.5 g/dL (32.0-36.0); Mean Corpuscular Volume 88.9 fL (80.0-100.0); Monocytes # (auto) 0.6 10 ^3/uL (0-1.3); Monocytes % (auto) 4.3 % (0.0-12.0); Neutrophils # (auto) 13.2 10 ^3/uL (1.6-8.6); Neutrophils % (auto) 91.7 % (37.0-80.0); Nucleated Red Blood Cells % 0.8 %; Platelet Count (auto) 216 10^3/uL (140-450); Red Blood Cells 3.22 10^6/uL (4.5-5.90); Red Cell Distribution Width 14.8 % (11.8-14.3); White Blood Cell 14.4 10^3/uL (4.4-10.8)
[2019-12-21 04:54] LABS: Albumin 1.8 g/dL (3.4-5.0); Calcium 7.6 mg/dL (8.5-10.1); Magnesium 2.7 mg/dL (1.6-2.6); Potassium 4.5 mmol/L (3.5-5.1)
[2019-12-21 04:59] LABS: BUN/Creatinine Ratio 16.9; Bilirubin, Total 0.5 mg/dL (0.2-1.0); Phosphorus 3.2 mg/dL (2.5-4.90); Total Protein 5.9 g/dL (6.4-8.2)
--- NOTE | 2019-12-21 05:19 | NUR ---
PT CARE GAVE PT CHG BATH AND GOWN CHANGE. PILLOW CASES CHANGED. FI02 CURRENTLY AT 70% AND PT TOLERATING WELL. STILL UNSTABLE FOR TURNING AT THIS TIME. ANTERIOR SKIN ASSESSED WITH NO NEW CHANGES. ORAL CARE DONE WITH MINIMAL SECRETIONS EXTRACTED.
[2019-12-21] MEDS: ACCU-CHEK COMFORT CURVE STRIP VI SCH ×3 (05:40→18:13)
[2019-12-21] MEDS: PIPERACILLIN-TAZOB 3.375GM 100 ML IV SCH (05:45)
[2019-12-21] MEDS: InsuLIN REG 1unit/0.01ml Soln (100units/ml) SC SCH ×3 (05:52→18:12)
--- NOTE | 2019-12-21 08:00 | NUR ---
AM ASSESSMENT COMPLETED. ORAL CARE PROVIDED. PT REMAINS ON APRV VENTILATOR MODE. STILL UNSTABLE TO BE REPOSITIONED ON BED. PT TAKES A LONG TIME TO RECOVER FROM SUCTIONING APPROXIMATELY 1/2 AN HOUR TO STOP THE LABOR BREATHING. PT HAS THICK CRUM ORAL SECRETIONS, NOT BLOODY YESTERDAY. REFER TO VENT DOCUMENTATION AND RT DOCUMENTATION FOR VENTILATOR MODALITIES AND CHANGES. PT'S IV FLOW SHEET FOR IV MEDS.
--- NOTE | 2019-12-21 08:10 | NUR ---
Respiratory note: ALL VENT ALARMS ARE AUDIBLE, AND FUNCTIONING. BS ARE CLEAR/DIMINISHED BILATERALLY. SX NOT INDICATED AT THIS TIME. TITRATED FIO2 FROM 70%, TO 65%. PT TOLERATED CHANGE WELL. WILL CONTINUE TO TITRATE FIO2 IN INCREMENTS OF 5% THROUGH OUT THE DAY PT TOLERATES. NO NEW VENT CHANGES ORDERED. RN AT BEDSIDE. WILL CONTINUE TO MONITOR PT.
--- NOTE | 2019-12-21 08:26 | NUR ---
PT UNSTABLE FOR TRANSPORT TO CT
[2019-12-21] MEDS: FUROSEMIDE 40 MG/4 ML VIAL IV SCH (10:04)
[2019-12-21] MEDS: ENOXAPARIN SOD 40 MG/0.4 ML SYRINGE SC SCH (10:04)
[2019-12-21] MEDS: PANTOPRAZOLE 40 MG/10 ML VIAL INJ IV SCH (10:05)
--- NOTE | 2019-12-21 10:10 | NUR ---
Respiratory note: ALL VENT ALARMS ARE AUDIBLE, AND FUNCTIONING. BS ARE COARSE/DIMINISHED BILATERALLY. SX FOR SCANT AMOUNT OF THICK, CRUM SECRETIONS. GAG REFLEX NOTED. TITRATED FIO2 FROM 65%, TO 55%. PT TOLERATED CHANGE WELL. WILL CONTINUE TO TITRATE FIO2 IN INCREMENTS OF 5% THROUGH OUT THE DAY PT TOLERATES. RN MADE AWARE. NO NEW VENT CHANGES ORDERED. RN AT BEDSIDE. WILL CONTINUE TO MONITOR PT.
[2019-12-21] MEDS: MICAFUNGIN SODIUM 100 MG in SODIUM CHL 0.9% 100 ML IV SCH (10:16)
--- NOTE | 2019-12-21 11:30 | NUR ---
DR. RYDER ROUNDED ON PT. NEW ORDERS RECEIVED. PT'S ATB'S ALREADY CHANGED EARLIER. UPDATED ON PT'S CONDITION, NO ADDITIONAL ORDERS RECEIVED.
--- NOTE | 2019-12-21 13:33 | NUR ---
PT'S DAUGHTER CALLED TO GET UPDATER ON PT'S CONDITION. UPDATED ON PT'S CONDITION, OXYGENATION STATUS, COVID [address] CHEST DONE AND PT NOT BEEN ABLE TO BE REPOSITIONED AT THIS TIME D/T OXYGENATION STATUS, STILL FEBRILE BUT ATB . ADJUSTED.
[2019-12-21] MEDS: MEROPENEM 1GM IVPB 100 ML IV SCH ×2 (13:39→21:45)
[2019-12-21] MEDS: fentaNYL Drip 2500mCg/250mlNS 250 ML IV SCH (14:00)
--- NOTE | 2019-12-21 15:18 | NUR ---
Nutrition Followup Note Wt: 98.0 kg Pt intubated and sedated with no bowel sounds. Pt is currently NPO initiated on PN support from last night @ 60 ml/hr providing 1600 kcals, 70 gm proteins and 1320 NPCs. Pt with inadequate energy intake from PN support as it [id number]% of est caloric needs. Protein intake from PN support is adequate aeb 95-104% of est protein needs are met. Est energy needs 1963-4402 kcal/kg (25-30 kcal/kg IBW 67.3kg) Est protein needs 67-74g (1-1.1g/kg IBW 67.3kg) Will reassess prn Labs: GLU 198 H, NA 133 L, CA 7.6 L, ALB 1.8 L, BM: Pt with no BM since 12/15 per RN doc. Skin: BS 10 high risk incision abd full details in RN WC doc PES: Inadequate oral intake r/t current medical condition aeb pt intubated and sedated with NPO Comments: 1) Advance diet as medically feasible 2) advance PN support to meet > 75% of needs. 3) F/u 2-3 days
[2019-12-21] MEDS: SODIUM CHLORIDE 0.9% 1,000 ML IV SCH (18:05)
--- NOTE | 2019-12-21 19:00 | NUR ---
PT NOW DOWN TO 40 % FIO2, STILL DESATURATES WITH ADL'S . PT HAD TO BE GIVEN PUFFS OF 100% FIO2 HERE AND THERE AFTER SUCTIONING AND HE TAKES A WHILE TO RECOVER AFTER DOING ORAL CARE. STILL ACCUMULATING COPIOUS THICK CRUM SECRETIONS ON THE BACK OF HIS THROAT. I ENDORSED TO EHS ENGINEER MASHA JONES TO DECREASE SEDATION PER DR. CARLOS PER THE LAST ABG. PT STILL HAS NO TOLERANCE FOR ACTIVITY. STILL UNABLE TO TURN PT IN BED FROM SIDE TO SIDE D/T INCREASED WORK OF BREATHING AND INCREASED OXYGEN DEMAND. PT REMAINS SPIKING FEVERS. PT REMAINS ON COOLING BLANKET THAT KEEPS ON BEEN TURNED ON EACH TIME THE TEMPERATURE STARTS RISING TO THE UPPER 90'S REFER VITAL SIGNS FLOW SHEET. NO TYLENOL ADMINISTERED IN THE LAST 12 HOURS.ANTIBIOTICS WERE ADJUSTED.
[2019-12-21] MEDS ORDERED: TPN PER PHARMACY IV NR ×10 (20:00)
--- NOTE | 2019-12-21 20:00 | NUR ---
Pt unable to tolerate turns. Full assessment done see interventions. All alarms on and audible.
--- NOTE | 2019-12-21 20:39 | NUR ---
Family Received call from daughter requesting update. Password provided by daughter and update given.
--- NOTE | 2019-12-21 23:37 | NUR ---
Desaturation Pt desaturated to 71%. RT called to bedside. Back up ventilation mode on ventilator initiated. Pt recovered slowly on 100% FIO2. Ventilator mode changed to AC PC from APRV. Aware. Versed restarted at this time as pt coughing and shivering.
--- NOTE | 2019-12-21 23:37 | NUR ---
PEAK PRESSURE ALARMED, RR INCREASED TO 40's. PT SUCTIONED FOR MODERATE YELLOW SECRETIONS. BACKUP VENTILATION TRIGGERED AND APRV REVERTED BACK TO PRVC. PT BAGGED FOR SEVERAL MINUTES. SPOKE WITH DR. CARLOS. PT PLACED ON PC P 30, RR 20, +10, AND FIO2 INCREASED TO 60%. ETCO2 CURRENTLY 37 AND SPO2 MAINTAINED AT 93%. ABG TO BE DRAW IN AN HOUR.
[2019-12-22] VITALS (110 sets, daily range): BP systolic 86–217; BP diastolic 43–213
[2019-12-22] MEDS: VANCOMYCIN 1GM/250ML 250 ML IV SCH ×3 (01:47→17:28)
--- NOTE | 2019-12-22 04:36 | NUR ---
Temperature Rectal temp reading 101.1 Cooling measures initiated; cooling blanket, ice packs and cool rag to forehead. Pt too unstable for Tylenol suppository
[2019-12-22 05:04] LABS: Basophils # (auto) 0 10 ^3/uL (0-0.2); Eosinophils # (auto) 0 10 ^3/uL (0-0.8); Mean Corpuscular Hemoglobin 29.2 pg (28.0-32.0); Red Blood Cells 2.65 10^6/uL (4.5-5.90)
--- NOTE | 2019-12-22 05:06 | NUR ---
Desaturation and increased WOB. RT at bedside bagging pt to bring saturations up. Temperature 101.1, Tylenol suppository given.
[2019-12-22 05:07] LABS: Eosinophils % (auto) 0.3 % (0.0-7.0); Hematocrit 23.2 % (41.0-53.0); Hemoglobin 7.7 g/dL (13.5-17.5); Lymphocytes # (auto) 0.6 10 ^3/uL (0.4-5.4); Lymphocytes % (auto) 4.1 % (10.0-50.0); Mean Corpuscular Hgb Conc. 33.3 g/dL (32.0-36.0); Mean Corpuscular Volume 87.7 fL (80.0-100.0); Monocytes # (auto) 0.5 10 ^3/uL (0-1.3); Neutrophils # (auto) 12.4 10 ^3/uL (1.6-8.6); Neutrophils % (auto) 91.6 % (37.0-80.0); Nucleated Red Blood Cells % 0.6 %; Platelet Count (auto) 227 10^3/uL (140-450); White Blood Cell 13.6 10^3/uL (4.4-10.8)
[2019-12-22 05:23] LABS: Potassium 4.4 mmol/L (3.5-5.1)
[2019-12-22 05:28] LABS: Albumin 1.6 g/dL (3.4-5.0); Bilirubin, Total 0.5 mg/dL (0.2-1.0); Calcium 7.4 mg/dL (8.5-10.1); Magnesium 2.7 mg/dL (1.6-2.6); Phosphorus 1.6 mg/dL (2.5-4.90); Total Protein 5.8 g/dL (6.4-8.2)
[2019-12-22] MEDS: InsuLIN REG 1unit/0.01ml Soln (100units/ml) SC SCH ×4 (05:56→17:44)
[2019-12-22] MEDS: MEROPENEM 1GM IVPB 100 ML IV SCH ×3 (06:00→22:24)
[2019-12-22] MEDS: ACCU-CHEK COMFORT CURVE STRIP VI SCH ×4 (06:00→17:36)
--- NOTE | 2019-12-22 06:57 | NUR ---
Temp reassess 98.2 at this time. cooling measures DC'd
--- NOTE | 2019-12-22 07:12 | NUR ---
REPORT RECEIVED FROM TOLL COLLECTOR RN
--- NOTE | 2019-12-22 07:35 | NUR ---
Respiratory note: INFORMED OF CRITICAL ABG RESULTS VIA TEXT. WAITING FOR A RESPONSE FOR VENT CHANGES. MASHA SNYDER INFORMED OF ABG RESULTS.
--- NOTE | 2019-12-22 07:45 | NUR ---
Respiratory note: CRITICAL ABG RESULTS GIVEN VIA VOICE MESSAGE TO , WAITING FOR TO CALL BACK WITH VENT CHANGES.
[2019-12-22] MEDS ORDERED: ALBUMIN 5% 250 ML IV ONE ×2 (07:54→08:30)
[2019-12-22] MEDS ORDERED: NOREPINEPHRINE 8 MG/250ML KIT 250 ML IV ONE (08:02)
[2019-12-22] MEDS ORDERED: SODIUM PHOSPHATES 40 MEQ in D5W 5% 250 ML IV ONE (09:00)
--- NOTE | 2019-12-22 09:02 | NUR ---
PT UNSTABLE FOR TRANSPORT TO CT AT THIS TIME
[2019-12-22] MEDS: MICAFUNGIN SODIUM 100 MG in SODIUM CHL 0.9% 100 ML IV SCH (09:19)
--- NOTE | 2019-12-22 09:21 | NUR ---
DR. SHAIKH RABAGO AWAITING CALLBACK
[2019-12-22] MEDS: NOREPINEPHRINE 8 MG/250ML KIT 250 ML IV SCH (09:32)
--- NOTE | 2019-12-22 09:34 | NUR ---
DR. SILVERIO UPDATED ON PATIENT STATUS. ORDERS RECEIVED
[2019-12-22] MEDS: ENOXAPARIN SOD 40 MG/0.4 ML SYRINGE SC SCH (09:39)
[2019-12-22] MEDS: FUROSEMIDE 40 MG/4 ML VIAL IV SCH ×2 (09:39→22:00)
--- NOTE | 2019-12-22 09:55 | NUR ---
Respiratory note: TITRATED FIO2 75%, MASHA SNYDER INFORMED.
[2019-12-22] MEDS: PANTOPRAZOLE 40 MG/10 ML VIAL INJ IV SCH (10:00)
[2019-12-22 10:44] LABS: INR 1.13 (0.9-1.15)
[2019-12-22] MEDS: MIDAZOLAM DRIP 50 mg/50mL 50 ML IV SCH ×3 (11:33→22:37)
--- NOTE | 2019-12-22 11:58 | NUR ---
Respiratory note: TITRATED FIO2 TO 70%, MASHA SNYDER INFORMED.
--- NOTE | 2019-12-22 12:26 | NUR ---
1 UNIT PRBC STARTED
--- NOTE | 2019-12-22 12:43 | NUR ---
DR. DON AT BEDSIDE
[2019-12-22] MEDS ORDERED: FUROSEMIDE 40 MG/4 ML VIAL IV ONE ×2 (12:45→17:15)
--- NOTE | 2019-12-22 14:21 | NUR ---
ORAL CARE PERFORMED PATIENT TOLERATED WELL
--- NOTE | 2019-12-22 14:49 | NUR ---
BLOOD TRANSFUSION COMPLETE NO REACTION NOTED
--- NOTE | 2019-12-22 15:27 | NUR ---
2ND UNIT PRBC STARTED
--- NOTE | 2019-12-22 16:21 | NUR ---
TRANSPORTATION HERE TO HAZARDOUS WASTE MANAGEMENT SPECIALIST PATIENT Addendum: 12/22/19 at 1641 by Sung Kwong RN WRONG PATIENT
--- NOTE | 2019-12-22 16:23 | NUR ---
DR. CAMARGO AT BEDSIDE
--- NOTE | 2019-12-22 16:30 | NUR ---
IVS REMOVED AND PRESSURE DRESSING PLACED Addendum: 12/22/19 at 1641 by Sung Kwong RN WRONG PATIENT
--- NOTE | 2019-12-22 16:32 | NUR ---
DNR GIVEN TO TRANSPORTATION CREW Addendum: 12/22/19 at 1641 by Sung Kwong RN WRONG PATIENT
--- NOTE | 2019-12-22 16:37 | NUR ---
PATIENT DISCHARGED WITH ALL PATIENT BELONGINGS, IV'S REMOVED AND WALTON DRAINING TO GRAVITY. SISTER TOM NOTIFIED THAT PATIENT IS ON HER WAY Addendum: 12/22/19 at 1641 by Sung Kwong RN WRONG PATIENT
[2019-12-22] MEDS: PROPOFOL 100 ML IV SCH ×2 (17:11→18:05)
[2019-12-22] MEDS: fentaNYL Drip 2500mCg/250mlNS 250 ML IV SCH (17:27)
--- NOTE | 2019-12-22 19:30 | NUR ---
Opening Shift note Received pt on mechanical ventilator, sedated on propofol, versed and fentanyl. See IV spreadsheet for infusion details. Full assessment done see interventions. Pt does not tolerate turns and will desaturate. On cooling blanket, rectal temp reading 99.1. All pulses palpable. Oral care done, pt tolerated well. All alarms on audible. No s/s of pain. VSS
[2019-12-22] MEDS ORDERED: IPRATROPIUM BROM 0.5 MG/2.5ML INH SOL ONE (19:34)
[2019-12-22] MEDS ORDERED: ALBUTEROL SULF 2.5 MG/0.5ML(0.5%) NEB SOLN ONE (19:34)
[2019-12-22] MEDS ORDERED: TPN PER PHARMACY IV NR ×9 (20:00)
--- NOTE | 2019-12-22 22:30 | NUR ---
Family daughter called wanting update on pt status. All questions and concerns addressed at this time.
[2019-12-23] VITALS (115 sets, daily range): BP systolic 62–153; BP diastolic 28–78
[2019-12-23] MEDS: ACCU-CHEK COMFORT CURVE STRIP VI SCH ×4 (00:11→17:35)
[2019-12-23] MEDS: InsuLIN REG 1unit/0.01ml Soln (100units/ml) SC SCH ×4 (00:11→17:47)
[2019-12-23] MEDS: VANCOMYCIN 1GM/250ML 250 ML IV SCH ×3 (02:00→17:35)
--- NOTE | 2019-12-23 02:58 | NUR ---
Cares Carefully turned pt to assess backside; no skin changes noted; No bm. Cleansed pt and partial linen change performed. Pt needed to be hyper-oxygenated during turn. Pt cleansed; adalberto care and small care done. Oral care done.
[2019-12-23 05:10] LABS: Hematocrit 27.1 % (41.0-53.0); Hemoglobin 9.1 g/dL (13.5-17.5); Mean Corpuscular Hemoglobin 29.1 pg (28.0-32.0); Mean Corpuscular Hgb Conc. 33.4 g/dL (32.0-36.0); Mean Corpuscular Volume 87.1 fL (80.0-100.0); Platelet Count (auto) 225 10^3/uL (140-450); Red Blood Cells 3.11 10^6/uL (4.5-5.90); Red Cell Distribution Width 15.3 % (11.8-14.3); White Blood Cell 10.9 10^3/uL (4.4-10.8)
[2019-12-23 05:12] LABS: Basophils % (manual) 0 (0.0-2.0); Blast Cells 0; Metamyelocytes % 0; Myelocytes % 0; Promyelocytes % 0; Reactive Lymphocytes 0
[2019-12-23 05:26] LABS: Albumin 1.6 g/dL (3.4-5.0); Calcium 7.4 mg/dL (8.5-10.1); Magnesium 2.5 mg/dL (1.6-2.6); Potassium 3.8 mmol/L (3.5-5.1)
[2019-12-23] MEDS: MEROPENEM 1GM IVPB 100 ML IV SCH ×3 (05:26→22:09)
[2019-12-23] MEDS: FUROSEMIDE 40 MG/4 ML VIAL IV SCH (05:26)
[2019-12-23 05:29] LABS: BUN/Creatinine Ratio 26.8; Bilirubin, Total 0.4 mg/dL (0.2-1.0); Total Protein 5.8 g/dL (6.4-8.2)
[2019-12-23] MEDS: fentaNYL Drip 2500mCg/250mlNS 250 ML IV SCH ×2 (05:33→17:45)
[2019-12-23 05:43] LABS: Band Neutrophils % (manual) 6; Eosinophils % (manual) 2 (0-7); Lymphocytes % (manual) 7 (10.0-50.0); Monocytes % (manual) 3 (0-12)
[2019-12-23] MEDS: ALBUTEROL SULF 2.5 MG/0.5ML(0.5%) NEB SOLN NEB PRN (07:05)
--- NOTE | 2019-12-23 08:47 | NUR ---
DR. RAGSDALE CONTACTED WITH ABG RESULTS.
--- NOTE | 2019-12-23 08:55 | NUR ---
PER YULISA LENZ AWARE OF ABG AND WILL BE IN UNIT SHORTLY, INCREASED DIPRIVAN AT THIS TIME TO 20 MCG/KG/MIN
[2019-12-23] MEDS: NOREPINEPHRINE 8 MG/250ML KIT 250 ML IV SCH (09:30)
--- NOTE | 2019-12-23 09:30 | NUR ---
SEDATION MAXED OUT AT THIS TIME TO HELP WITH VENTILATION, TITRATED UP PER MED ORDERS.. SEE IV SPREADSHEET/VS. PAGED RT YULISA DUE TO LOW SP02 88-89%, FIO2 INCREASED TO 65% BY RT. CONT TO MONITOR. AWAITING REPORTING ANALYST TO ASSESS AT BEDSIDE.
--- NOTE | 2019-12-23 10:15 | NUR ---
DR LENZ AT BEDSIDE, NEW ORDER FOR LASIX DRIP AT 5MG/HR, POTASSIUM [address] SILVERIO STATES OK FOR MEDS DOWN NGT. WILL PERFORM BRONCHOSCOPY WELL.
[2019-12-23] MEDS: PANTOPRAZOLE 40 MG/10 ML VIAL INJ IV SCH (10:17)
[2019-12-23] MEDS: MICAFUNGIN SODIUM 100 MG in SODIUM CHL 0.9% 100 ML IV SCH (10:17)
--- NOTE | 2019-12-23 10:23 | NUR ---
DR SILVERIO CALLED BACK, OK TO GIVE MEDS DOWN T
[2019-12-23] MEDS: PROPOFOL 100 ML IV SCH ×3 (10:25→20:32)
--- NOTE | 2019-12-23 10:36 | NUR ---
SPOKE WITH DTR IN LAW OBTAINED CONSENT FOR BRONCHOSCOPY VERIFIED BY SECOND RN RIVERA.
[2019-12-23] MEDS: FUROSEMIDE INJECTION 100 MG in D5W 5% 100 ML IV SCH (11:17)
--- NOTE | 2019-12-23 11:35 | NUR ---
DR BHATT AT BEDSIDE, EXAMINED PATIENT, AWARE OF BRONCHOSCOPY PENDING AND LASIX GTT STARTED PER DR LENZ ORDER.
--- NOTE | 2019-12-23 11:49 | NUR ---
Nutrition Followup Note Wt: 98.0 kg Pt intubated and sedated with propofol @ 8.82 ml/hr providing 232 kcals from fats. Pt is currently NPO initiated on PN support @ 69 ml/hr providing 1740 kcals, 80 gm proteins and 1420 NPCs. Pt with adequate energy intake from PN support as it meets 97-117% of est caloric needs and 108-119% of est protein needs with propofol on board Est energy needs 2048-0082 kcal/kg (25-30 kcal/kg IBW 67.3kg) , Est protein needs 67-74g (1-1.1g/kg IBW 67.3kg) Will reassess prn Labs: BUN 22 H, ALB 1.6 L, GLU 212 H, CA 7.9 L. BM: Pt had 550 ml bm 6/3 per RN doc. Skin: BS 14 mod risk incision abd full details in RN WC doc PES: Inadequate oral intake r/t current medical condition aeb pt intubated and sedated with NPO Comments: 1) Advance diet as medically feasible 2) advance PN support to meet > 75% of needs. 3) F/u 2-3 days
[2019-12-23] MEDS ORDERED: SODIUM CHLORIDE LOCK 0 ML ONE (12:05)
[2019-12-23] MEDS ORDERED: LIDOCAINE HCL 2% TOP JELLY 5ML TOP ONE ×2 (12:06→13:48)
--- NOTE | 2019-12-23 12:54 | NUR ---
ETT. EXCHANGED TO AN 8.0, SECURED 24CM AT THE LIP WITH LOW. PT. WAS A DIFFICULT INTUBATION. PT. DESATED INTO THE 70', BVM PROVIDED WITH 100%FI02. GLIDE SCOPE USED BY DR. RAGSDALE SUCCESSFUL.
[2019-12-23] MEDS ORDERED: SUCCINYLCHOLINE CHLORIDE 20 MG/ML 10ML VIAL IV ONE (13:15)
--- NOTE | 2019-12-23 13:15 | NUR ---
BRONCH PROCEDURE DR DAVIS,OR TEAM, RT AND THIS RN AT BEDSIDE FROM [phone] FOR BRONCHOSCOPY AND REMOVED SIZE 7.5 ETT AND PLACED NEW 8.0 ETT AFTER BRONCH. SUCCINYLCHOLINE GIVEN PER VERBAL ORDER AT 1243 AND LOW BP ASSESSED AFTER GIVING BUT BECAME WNL AFTER 5 MINS. CRASH CART IN ROOM WITH PACER PADS ON PATIENT AT 1248 DUE TO HYPOXEMIA SPO2 70'S AND DIFFICULT AIRWAY DURING THE TIME DR WAS SWITCHING OUT ETT. PATIENT SPO2 CAME UP UP AFTER INSERTION OF NEW ETT. CXR OBTAINED STAT AFTER ETT PLACEMENT. PATIENT STABLE AFTER PROCEDURE. SEE VS SPREADSHEET FOR Q5MINS. Addendum: 12/23/19 at 1523 by Avni Johnson RN TEAM IN AT BEDSIDE AT 1220 TO 1300 NOT 1240.
[2019-12-23] MEDS: ALBUMIN 25% 100 ML IV SCH ×2 (13:17→19:59)
--- NOTE | 2019-12-23 15:00 | NUR ---
DR SILVERIO AT BEDSIDE OK TO LEAVE JEFF DRAIN AND EX LAP INCISIONS OPEN TO AIR. CLEANSED WITH CHLORHEXIDINE. SITES ASYMPTOMATIC. DR SILVERIO STATED TO WAIT UNTIL WEDNESDAY AM FOR ORDERED CT.
--- NOTE | 2019-12-23 16:00 | NUR ---
LUNG SOUNDS CLEAR TO DIMINISHED IN BASES, NEW LINEN PROVIDED. LEFT FA [address] AND DC 20 GIV DATED 12/16 ON LEFT FA. PATIENT TOLERATED WELL.
--- NOTE | 2019-12-23 16:21 | NUR ---
DR LENZ AWARE OF LATEST ABG RESULTS, NO NEW ORDERS
--- NOTE | 2019-12-23 19:30 | NUR ---
Opening Shift Note Received pt on mechanical ventilator sedated on propofol, versed, and fentanyl. See IV spreadsheet for titration details. Pt grimaces to pain, hypoactive cough/gag. Lung sounds coarse. S/P bronch today. Full assessment done see interventions. Suazo catheter intact, patent draining to gravity, secured below bladder. Pitting edema noted in bilateral hands. All alarms on and audible. Bed locked in lowest position. VSS.
[2019-12-23] MEDS ORDERED: TPN PER PHARMACY IV NR ×7 (20:00)
[2019-12-23] MEDS: MIDAZOLAM DRIP 50 mg/50mL 50 ML IV SCH (20:32)
--- NOTE | 2019-12-23 22:40 | NUR ---
Respiratory note: CHANGED PT TO V5 VENT AT THIS TIME WITH HEATED WIRE CIRCUIT. PT SAT DECREASED AND WAS BAGGED TO IMPROVE TO 97%. PLACED PT BACK ON VENT WITH ORDERED VENT SETTINGS
--- NOTE | 2019-12-23 22:58 | NUR ---
Respiratory note: INCREASED FIO2 TO 70% AT THIS TIME
[2019-12-24] VITALS (105 sets, daily range): BP systolic 72–161; BP diastolic 41–89
[2019-12-24] MEDS: ACETAMINOPHEN 650 MG RECT SUPP PR PRN (00:20)
--- NOTE | 2019-12-24 00:20 | NUR ---
Temperature Rectal temp reading 101.5 at this time. Tylenol suppository given per MD order. Cooling measures initiated; fan, ice, and cooling blanket applied
[2019-12-24] MEDS: PROPOFOL 100 ML IV SCH ×5 (01:02→17:58)
--- NOTE | 2019-12-24 01:30 | NUR ---
Pt unable to tolerate turns. pt desaturates despite hyperoxygenation
[2019-12-24] MEDS: VANCOMYCIN 1GM/250ML 250 ML IV SCH ×3 (02:10→20:23)
[2019-12-24] MEDS: ALBUMIN 25% 100 ML IV SCH (04:09)
[2019-12-24 04:29] LABS: Basophils # (auto) 0 10 ^3/uL (0-0.2); Basophils % (auto) 0.3 % (0.0-2.0); Eosinophils # (auto) 0.2 10 ^3/uL (0-0.8); Eosinophils % (auto) 2.7 % (0.0-7.0); Hematocrit 25.4 % (41.0-53.0); Hemoglobin 8.5 g/dL (13.5-17.5); Lymphocytes # (auto) 0.5 10 ^3/uL (0.4-5.4); Lymphocytes % (auto) 6.4 % (10.0-50.0); Mean Corpuscular Hemoglobin 29.2 pg (28.0-32.0); Mean Corpuscular Hgb Conc. 33.5 g/dL (32.0-36.0); Monocytes # (auto) 0.3 10 ^3/uL (0-1.3); Monocytes % (auto) 3.8 % (0.0-12.0); Neutrophils # (auto) 6.7 10 ^3/uL (1.6-8.6); Neutrophils % (auto) 86.8 % (37.0-80.0); Nucleated Red Blood Cells % 0.4 %; Platelet Count (auto) 263 10^3/uL (140-450); Red Blood Cells 2.91 10^6/uL (4.5-5.90); Red Cell Distribution Width 15.1 % (11.8-14.3); White Blood Cell 7.7 10^3/uL (4.4-10.8)
[2019-12-24 04:42] LABS: Albumin 1.6 g/dL (3.4-5.0); Calcium 7.2 mg/dL (8.5-10.1); Magnesium 2.3 mg/dL (1.6-2.6); Potassium 3.4 mmol/L (3.5-5.1)
[2019-12-24 04:45] LABS: BUN/Creatinine Ratio 22.2; Bilirubin, Total 0.7 mg/dL (0.2-1.0); Phosphorus 2.1 mg/dL (2.5-4.90); Total Protein 5.7 g/dL (6.4-8.2)
--- NOTE | 2019-12-24 04:50 | NUR ---
Cleansed incision sites with CHG swab sticks and pat dry. Open to air per MD.
[2019-12-24] MEDS: MEROPENEM 1GM IVPB 100 ML IV SCH ×2 (05:50→14:35)
[2019-12-24] MEDS: InsuLIN REG 1unit/0.01ml Soln (100units/ml) SC SCH ×4 (05:56→18:01)
[2019-12-24] MEDS: ACCU-CHEK COMFORT CURVE STRIP VI SCH ×4 (06:10→17:59)
[2019-12-24] MEDS: fentaNYL Drip 2500mCg/250mlNS 250 ML IV SCH ×2 (06:11→18:15)
[2019-12-24] MEDS ORDERED: POTASSIUM CHLORIDE 40 MEQ, LIDOCAINE 1% (LOCAL ANESTH.) 4 ML in SODIUM CHL 0.9% 100 ML IV ONE (06:30)
[2019-12-24] MEDS ORDERED: POTASSIUM CHL 20 Meq TABLET PO ONE (06:30)
[2019-12-24] MEDS: MIDAZOLAM DRIP 50 mg/50mL 50 ML IV SCH ×3 (06:56→17:59)
[2019-12-24] MEDS: FUROSEMIDE INJECTION 100 MG in D5W 5% 100 ML IV SCH (08:22)
[2019-12-24] MEDS: NOREPINEPHRINE 8 MG/250ML KIT 250 ML IV SCH (09:32)
[2019-12-24] MEDS ORDERED: DAKINS QUARTER STR 0.125% (NaHypochlorite) 473 ML TOPICAL SOL TOP SCH (10:00)
--- NOTE | 2019-12-24 10:20 | NUR ---
ROUNDS; Wound care nurse at bedside. Patient repositioned to left side, 5 minutes after repositioning patient became tachypneic RR increased to 30's, sats decreased to 86%, and blood pressure increased to 160's. Patient placed in supine position, Diprivan drip increased. Patient does not tolerated repositioning to left side.
--- NOTE | 2019-12-24 10:25 | NUR ---
WOUND CARE NOTE: Wound care in to see patient for skin integrity monitoring. Patient continue resting in ICU bed in Rm. 103. Patient is still intubated, sedated and mechanically ventilated. Patient appears to be in no pain using Sandoval Perry Faces Pain Scale. His Ilan score is 10. Patient remain wound free other than small incisions/wounds to upper and distal medial abdomen s/p Lap Cholecystectomy by Dr. Lazo and Rt anterolateral abdomen JEFF drain site. Incisions are open to air with chayo intact, clean and dry. JEFF drain moderate amount of sanguinous drainage with minimal drainage noted to tube insertion site, cleansed and applied layer of sterile 4x4's gauze. No pressure injury noted other than 0.5cm linear abrasion to L lateral ear, applied protective Opti foam gentle dressing. Patient continue receiving BID/PRN cleaning and application of Barrier cream to sacrum with preventative Opti foam sacral dressing. Patient tolerated well, reposition for comfort. RECOMMENDATION: Continuation of all wound care orders prescribed by MD, continue with skin/wound plan of care, continue monitoring by wound care while patient is intubated. Addendum: 12/24/19 at 1309 by Radha Felton RN Amended: Links added.
[2019-12-24] MEDS: MICAFUNGIN SODIUM 100 MG in SODIUM CHL 0.9% 100 ML IV SCH (10:36)
[2019-12-24] MEDS: PANTOPRAZOLE 40 MG/10 ML VIAL INJ IV SCH (10:36)
[2019-12-24] MEDS ORDERED: POTASSIUM PHOSPHATE 26.4 MEQ in SODIUM CHL 0.9% 100 ML IV ONE (10:45)
[2019-12-24] MEDS: POTASSIUM EFFERVESENT TAB 25 MEQ GT SCH (10:52)
--- NOTE | 2019-12-24 12:05 | NUR ---
AT BEDSIDE/LAURIE CUI; Dr. Joshi at bedside. Laurie gonzalez off, order received that patient may be downgraded to SALEEM after 6 hours if the blood pressure remains stable. Addendum: 12/24/19 at 1338 by Yves Islas RN NOTE ENTERED FOR WRONG PATIENT.
--- NOTE | 2019-12-24 14:00 | NUR ---
RESIDUAL: Assessed for residual/absorption of previously administer PO medications. Patient did not absorb any of previously administer PO KCL, 200 mL of orange fluid.
--- NOTE | 2019-12-24 14:40 | NUR ---
A LINE DRESSING, NS AND LINE CHANGED PATIENT TOLERATED WELL.
--- NOTE | 2019-12-24 19:45 | NUR ---
report received and assumed care; see interventions for assessment; vs stable at this time; nvdq=551.2/rectal and cooling measures started with cooling blanket on and fan on low-will add ice to axillary area bilaterally and increase fan speed; pt. unstable for turn to left per am rn; will cont. to monitor.
[2019-12-24] MEDS: TPN PER PHARMACY IV NR ×8 (20:42)
--- NOTE | 2019-12-24 23:00 | NUR ---
s/w pt. [id number] via telephone and updated on plan of care and satisfactorily answered all of her questions/concerns; she expressed a need to speak directly with physician either hospitalist or fisher seal to be updated with either of them on plan of care and condition-will send message to both to call her.
[2019-12-25] VITALS (99 sets, daily range): BP systolic 87–145; BP diastolic 38–79
[2019-12-25] MEDS: MEROPENEM 1GM IVPB 100 ML IV SCH ×4 (00:37→22:00)
[2019-12-25] MEDS: ACCU-CHEK COMFORT CURVE STRIP VI SCH ×4 (00:37→18:07)
[2019-12-25] MEDS: InsuLIN REG 1unit/0.01ml Soln (100units/ml) SC SCH ×4 (00:37→18:00)
[2019-12-25] MEDS: VANCOMYCIN 1GM/250ML 250 ML IV SCH ×3 (03:00→18:04)
--- NOTE | 2019-12-25 04:10 | NUR ---
RT AT BEDSIDE AND ADJUSTED FIO2 TO 70%; WILL CONT. TO MONITOR.
[2019-12-25 04:31] LABS: Potassium 3.3 mmol/L (3.5-5.1)
[2019-12-25 04:50] LABS: Albumin 1.7 g/dL (3.4-5.0); BUN/Creatinine Ratio 28.2; Bilirubin, Total 0.7 mg/dL (0.2-1.0); Calcium 7.4 mg/dL (8.5-10.1); Magnesium 2.3 mg/dL (1.6-2.6); Phosphorus 4.1 mg/dL (2.5-4.90); Pre Albumin 8.6 mg/dL (20.0-40.0); Total Protein 6.1 g/dL (6.4-8.2)
[2019-12-25 04:58] LABS: Hematocrit 27.6 % (41.0-53.0); Mean Corpuscular Hemoglobin 28.4 pg (28.0-32.0); Mean Corpuscular Hgb Conc. 32.7 g/dL (32.0-36.0); Mean Corpuscular Volume 86.9 fL (80.0-100.0); Platelet Count (auto) 320 10^3/uL (140-450); Red Blood Cells 3.18 10^6/uL (4.5-5.90); White Blood Cell 9.4 10^3/uL (4.4-10.8)
[2019-12-25 05:05] LABS: Basophils % (manual) 0 (0.0-2.0); Blast Cells 0; Myelocytes % 0; Promyelocytes % 0; Reactive Lymphocytes 0
[2019-12-25 05:25] LABS: Band Neutrophils % (manual) 8; Eosinophils % (manual) 2 (0-7); Lymphocytes % (manual) 4 (10.0-50.0); Metamyelocytes % 1; Monocytes % (manual) 3 (0-12)
--- NOTE | 2019-12-25 06:34 | NUR ---
Respiratory note: RECEIVED PATIENT ON V5 ESPRIT VENT ORALLY INTUBATED WITH AN 8.0 ETT SECURED VIA LOW AT THE 24CM MARKING AT THE LIP, AND MECHANICALLY VENTILATED WITH THE CHARTED SETTINGS. SPO2 95%, LUNG SOUNDS CLEAR T/O, NO SECRETIONS WHEN SUCTIONED. SKIN IS WARM/DRY TO THE TOUCH AND IS INTACT NEAR LOW SITE. LOW HAS BITE BLOCK. THERE IS A NGT IN RIGHT NARE AND IS SECURED TO THE NOSE, AND A RIGHT FEMORAL A-LINE IS IN PLACE AND PATENT. NO NEW AM CXR TO ASSESS. PATIENT IS UNRESPONSIVE TO BOTH VERBAL/TACTILE STIMULI AND SIS SEDATED ON VERSED, FENTANYL, AND PROPOFOL DRIPS. HE IS RESTING COMFORTABLY AND TOLERATING VENT WELL, NO CHANGES MADE. VENT PLUGGED INTO RED OUTLET AND ALL ALARMS ARE SET AND AUDIBLE. WILL CONTINUE TO ASSESS PATIENT WELL VENTILATOR FUNCTION. PRN MED-NEB NOT INDICATED.
[2019-12-25] MEDS: FUROSEMIDE INJECTION 100 MG in D5W 5% 100 ML IV SCH (06:45)
[2019-12-25] MEDS: ACETAMINOPHEN 650 MG RECT SUPP PR PRN (08:00)
--- NOTE | 2019-12-25 08:00 | NUR ---
ROUNDS: Patient continues to not tolerated repositioning, patient repositioned to right side. Became tachypneic, saturations decreased to 86%. Patient suctioned, administered 100% via 100% preset on button on ventilator, and patient placed back supine. After reposition back to supine RR returned to baseline, after 3 minutes O2 saturations increased back to 92%.
--- NOTE | 2019-12-25 08:00 | NUR ---
Respiratory note: FIO2 INCREASED TO 100% FOR SUSTAINED DESAT INTO MID 80'S. RN RIVERA AT BEDSIDE AND AWARE OF CHANGE.
[2019-12-25] MEDS: POTASSIUM EFFERVESENT TAB 25 MEQ GT SCH (08:34)
--- NOTE | 2019-12-25 09:01 | NUR ---
PT IS UNSTABLE FOR TRANSPORT TO CT AT THIS TIME
[2019-12-25] MEDS: NOREPINEPHRINE 8 MG/250ML KIT 250 ML IV SCH (09:32)
[2019-12-25] MEDS: PANTOPRAZOLE 40 MG/10 ML VIAL INJ IV SCH (09:50)
[2019-12-25] MEDS: PROPOFOL 100 ML IV SCH ×2 (09:55→13:35)
[2019-12-25] MEDS: MIDAZOLAM DRIP 50 mg/50mL 50 ML IV SCH ×2 (09:57→18:05)
--- NOTE | 2019-12-25 10:00 | NUR ---
MEDICATIONS; PO medications held as patient continues to have very hypoactive bowel sounds. Patient has TPN per pharmacy protocol and will receive appropriate supplemental potassium.
[2019-12-25] MEDS ORDERED: POTASSIUM CHL 20MEQ/100ML 100 ML IV ONE (10:30)
--- NOTE | 2019-12-25 11:30 | NUR ---
Respiratory note: FIO2 DECREASED TO 95% AT THIS TIME. MASHA STAFFORD MADE AWARE OF CHANGE.
--- NOTE | 2019-12-25 11:43 | NUR ---
Nutrition Followup Note Wt: 98.0 kg Pt intubated and sedated with propofol @ 29.4 ml/hr providing 776 kcals from fats. Pt is currently NPO initiated on PN support @ 62 ml/hr providing 1340 kcals, 80 gm proteins and 1020 NPCs. Pt with adequate energy intake from PN support as it meets 104-125% of est caloric needs and 108-119% of est protein needs with propofol on board Est energy needs 4646-2807 kcal/kg (25-30 kcal/kg IBW 67.3kg) , Est protein needs 67-74g (1-1.1g/kg IBW 67.3kg) Will reassess prn Labs: BUN 20 H, CA 7.4 L, ALB 2.7 L, PREALB 8.6 L, CO2 33 H. BM: Pt had 20 ml gastric drainage per RN doc. Skin: BS 10 high risk incision abd full details in RN WC doc PES: Inadequate oral intake r/t current medical condition aeb pt intubated and sedated with NPO Comments: 1) Advance diet as medically feasible 2) advance PN support to meet > 75% of needs. 3) F/u 2-3 days
--- NOTE | 2019-12-25 11:45 | NUR ---
MD AT BEDSIDE: Dr. Baird at bedside, will review chart and imaging.
[2019-12-25] MEDS: MICAFUNGIN SODIUM 100 MG in SODIUM CHL 0.9% 100 ML IV SCH (12:40)
--- NOTE | 2019-12-25 13:28 | NUR ---
MD AT BEDSIDE Dr. Gary updated on patients status. See md orders/ notes.
--- NOTE | 2019-12-25 14:19 | NUR ---
Respiratory note: FIO2 DECREASED TO 90% AT THIS TIME. MASHA STAFFORD MADE AWARE OF CHANGE.
[2019-12-25] MEDS: fentaNYL Drip 2500mCg/250mlNS 250 ML IV SCH (18:32)
--- NOTE | 2019-12-25 19:30 | NUR ---
REPORT RECEIVED AND ASSUMED CARE; SEE INTERVENTIONS FOR ASSESSMENT; SEE IV SPREADSHEET FOR GTTS; VS STABLE AT THIS TIME; WILL CONT. TO MONITOR.
[2019-12-25] MEDS: TPN PER PHARMACY IV NR ×8 (19:56)
[2019-12-25] MEDS ORDERED: TPN PER PHARMACY IV NR ×9 (20:00)
[2019-12-26] VITALS (102 sets, daily range): BP systolic 71–135; BP diastolic 33–71
[2019-12-26] MEDS: VANCOMYCIN 1GM/250ML 250 ML IV SCH ×3 (02:00→18:30)
[2019-12-26] MEDS: FUROSEMIDE INJECTION 100 MG in D5W 5% 100 ML IV SCH ×2 (02:30→18:15)
[2019-12-26] MEDS: IPRATROPIUM BROM 0.5 MG/2.5ML INH SOL NEB PRN (02:45)
[2019-12-26] MEDS: ALBUTEROL SULF 2.5 MG/0.5ML(0.5%) NEB SOLN NEB PRN (02:45)
--- NOTE | 2019-12-26 04:15 | NUR ---
warming measures started wit warm blankets applied and heat lamp on; will cont. to monitor.
--- NOTE | 2019-12-26 04:30 | NUR ---
took pt. temp orally and T= 97.5; will cont. to monitor.
[2019-12-26 05:09] LABS: Basophils # (auto) 0 10 ^3/uL (0-0.2); Basophils % (auto) 0.3 % (0.0-2.0); Eosinophils # (auto) 0.3 10 ^3/uL (0-0.8); Eosinophils % (auto) 2.7 % (0.0-7.0); Hemoglobin 9.4 g/dL (13.5-17.5); Lymphocytes # (auto) 0.4 10 ^3/uL (0.4-5.4); Lymphocytes % (auto) 3.3 % (10.0-50.0); Mean Corpuscular Hemoglobin 28.3 pg (28.0-32.0); Mean Corpuscular Hgb Conc. 32.4 g/dL (32.0-36.0); Mean Corpuscular Volume 87.4 fL (80.0-100.0); Monocytes # (auto) 0.4 10 ^3/uL (0-1.3); Monocytes % (auto) 2.9 % (0.0-12.0); Neutrophils # (auto) 11.6 10 ^3/uL (1.6-8.6); Neutrophils % (auto) 90.8 % (37.0-80.0); Nucleated Red Blood Cells % 0.1 %; Platelet Count (auto) 386 10^3/uL (140-450); Red Blood Cells 3.32 10^6/uL (4.5-5.90); Red Cell Distribution Width 15.4 % (11.8-14.3); White Blood Cell 12.7 10^3/uL (4.4-10.8)
[2019-12-26 05:11] LABS: Potassium 3.7 mmol/L (3.5-5.1)
[2019-12-26 05:20] LABS: Albumin 1.6 g/dL (3.4-5.0); Bilirubin, Total 0.7 mg/dL (0.2-1.0); Calcium 7.4 mg/dL (8.5-10.1); Magnesium 2.4 mg/dL (1.6-2.6); Phosphorus 3.6 mg/dL (2.5-4.90); Total Protein 6.4 g/dL (6.4-8.2)
[2019-12-26] MEDS: MEROPENEM 1GM IVPB 100 ML IV SCH ×3 (06:15→22:00)
[2019-12-26] MEDS: ACCU-CHEK COMFORT CURVE STRIP VI SCH ×4 (06:15→18:30)
[2019-12-26] MEDS: InsuLIN REG 1unit/0.01ml Soln (100units/ml) SC SCH ×4 (06:16→18:30)
--- NOTE | 2019-12-26 08:30 | NUR ---
REPOSITIONING: Patient does not tolerate manual repositioning, becomes tachypneic and desaturates. Adjusted bed to perform auto-rotation as follows right hold for 10 minutes, supine for 5 minutes, and left hold for 10 minutes, patient is able to tolerate gentle reposition of auto-rotation.
[2019-12-26] MEDS: PROPOFOL 100 ML IV SCH ×2 (09:07→14:00)
[2019-12-26] MEDS: MIDAZOLAM DRIP 50 mg/50mL 50 ML IV SCH ×2 (09:08→14:00)
[2019-12-26] MEDS: NOREPINEPHRINE 8 MG/250ML KIT 250 ML IV SCH (09:32)
[2019-12-26] MEDS: POTASSIUM EFFERVESENT TAB 25 MEQ GT SCH (10:00)
[2019-12-26] MEDS: PANTOPRAZOLE 40 MG/10 ML VIAL INJ IV SCH (10:30)
--- NOTE | 2019-12-26 10:30 | NUR ---
REPOSITIONING; Continue to use auto-rotation as described previously for repositioning.
--- NOTE | 2019-12-26 10:45 | NUR ---
FAMILY PHONE CALL: Received phone call from patient's [id number], updated on patient's condition. Discussed with her plan for repeat bronchoscopy tomorrow if she is willing to provide consent, states that she will give consent for procedure. Further discussed plan of care with her to include adjusting ventilator settings to a different mode of ventilation that requires ensuring no mucus plugs are present to make sure patient will tolerate new modality. Also discussed with her if patient's condition does not improve after the changes in care that provisions will be made for her and one other family member to come and visit to assist with decision making process. Discussed with Isidro that patient is approaching the time frame that if he is unable to be extubated would require performing a tracheostomy, however, at this time patient is not stable enough to be taken for any type of surgical procedure. Isidro verbalized understanding of plan of care.
--- NOTE | 2019-12-26 11:15 | NUR ---
Cooling Measures applied. Patient currently has temp of rectal temp of 100.2 , cooling measures in place. Cooling blanket resumed, fan directed at patient.
[2019-12-26] MEDS: MICAFUNGIN SODIUM 100 MG in SODIUM CHL 0.9% 100 ML IV SCH (11:30)
--- NOTE | 2019-12-26 12:02 | NUR ---
AT BEDSIDE; Dr. Munguia at bedside. New orders obtained.
--- NOTE | 2019-12-26 13:30 | NUR ---
Cooling Measures applied. Patient currently has temp of rectal temp of 101.7 , cooling measures in place. Administer Tylenol suppository, applied ice packs and decreased temperature on cooling blanket to lowest setting.
[2019-12-26] MEDS: ACETAMINOPHEN 650 MG RECT SUPP PR PRN (13:45)
[2019-12-26 14:05] LABS: INR 1.13 (0.9-1.15)
--- NOTE | 2019-12-26 16:27 | NUR ---
PICC line placement Patient significant other educated on need for PICC line placement. All risks and benefits explained and all questions and concerns addressed prior to procedure. Noted past medical history and allergies with no contraindications. INR and Plt counts within acceptable range. 5 fr PICC line inserted via right basilic vein using [email or web address] US and Tip Location System. Sterile technique with maximum barrier precautions utilized. Blood return obtained from each of the 3 lumens and each flushed easily with NS using proper technique. PICC secured with Stat-lock; biodisc and occlusive dressing applied. Stat portable chest x-ray obtained for PICC tip placement. *Baseline Arm Circumference 32 cm. Internal length 45 cm. External length 0. PICC lot #[id number]
[2019-12-26] MEDS ORDERED: LIDOCAINE 1% (LOCAL ANESTH.) PF 5ml SDV ID ONE (16:30)
--- NOTE | 2019-12-26 17:00 | NUR ---
Okay to use PICC line Xray completed and reviewed. Okay to use PICC line. Primary RN notified.
--- NOTE | 2019-12-26 18:15 | NUR ---
CENTRAL LINE REMOVAL: Central line and A-line removed, manual pressure held for 5 minutes. No bleeding noted, pressure dressing applied to site.
[2019-12-26] MEDS: fentaNYL Drip 2500mCg/250mlNS 250 ML IV SCH (19:05)
[2019-12-26] MEDS ORDERED: TPN PER PHARMACY IV NR ×10 (20:00)
[2019-12-26] MEDS: SODIUM CHLOR 0.9% PF (SALINE LOCK) 10ML VIAL/SYR IV SCH (22:00)
[2019-12-27] VITALS (100 sets, daily range): BP systolic 54–165; BP diastolic 33–92
[2019-12-27] MEDS: VANCOMYCIN 1GM/250ML 250 ML IV SCH ×3 (02:00→17:28)
[2019-12-27 04:44] LABS: Hematocrit 29.4 % (41.0-53.0); Hemoglobin 9.4 g/dL (13.5-17.5); Mean Corpuscular Hemoglobin 28.1 pg (28.0-32.0); Mean Corpuscular Hgb Conc. 31.9 g/dL (32.0-36.0); Platelet Count (auto) 423 10^3/uL (140-450); Red Blood Cells 3.34 10^6/uL (4.5-5.90); Red Cell Distribution Width 15.2 % (11.8-14.3); White Blood Cell 10.6 10^3/uL (4.4-10.8)
[2019-12-27 05:04] LABS: Potassium 4.2 mmol/L (3.5-5.1)
[2019-12-27 05:09] LABS: Basophils % (manual) 0 (0.0-2.0); Blast Cells 0; Metamyelocytes % 0; Myelocytes % 0; Promyelocytes % 0; Reactive Lymphocytes 0
[2019-12-27 05:14] LABS: Albumin 1.5 g/dL (3.4-5.0); BUN/Creatinine Ratio 34.3; Bilirubin, Total 0.5 mg/dL (0.2-1.0); Calcium 7.5 mg/dL (8.5-10.1); Magnesium 2.6 mg/dL (1.6-2.6); Phosphorus 3.2 mg/dL (2.5-4.90); Pre Albumin 9.1 mg/dL (20.0-40.0); Total Protein 6.3 g/dL (6.4-8.2)
[2019-12-27 06:10] LABS: Band Neutrophils % (manual) 3; Eosinophils % (manual) 3 (0-7); Lymphocytes % (manual) 5 (10.0-50.0); Monocytes % (manual) 4 (0-12)
[2019-12-27] MEDS: InsuLIN REG 1unit/0.01ml Soln (100units/ml) SC SCH ×4 (06:20→17:40)
[2019-12-27] MEDS: ACCU-CHEK COMFORT CURVE STRIP VI SCH ×4 (06:20→17:36)
[2019-12-27] MEDS: MEROPENEM 1GM IVPB 100 ML IV SCH ×3 (06:20→22:00)
--- NOTE | 2019-12-27 08:00 | NUR ---
CT OF ABD HELD PATIENT ON 80% FI02 PEEP 10. PER REPORT PATIENT NOT TOLERATING POSITION CHANGE.
[2019-12-27] MEDS: MICAFUNGIN SODIUM 100 MG in SODIUM CHL 0.9% 100 ML IV SCH (08:02)
[2019-12-27] MEDS ORDERED: BENZOCAINE (DENTAL) 20 % SPRAY 60ML MT ONE (08:03)
[2019-12-27] MEDS ORDERED: EPINEPHrine HCL 1 MG/1 ML AMP ONE (08:03)
[2019-12-27] MEDS ORDERED: LIDOCAINE 2%HCL (LOCAL ANESTH.) INJ 20ML MDV ONE (08:03)
[2019-12-27] MEDS ORDERED: SODIUM CHLORIDE LOCK 0 ML ONE (08:03)
[2019-12-27] MEDS ORDERED: LIDOCAINE HCL 2% TOP JELLY 5ML TOP ONE (08:04)
[2019-12-27] MEDS ORDERED: GLYCOPYRROLATE 0.2 MG/ML 1ML VIAL ONE (08:04)
[2019-12-27] MEDS ORDERED: ACETYLCYSTEINE 10 %(100MG/ML) SOL 4ML NEB ONE (08:30)
[2019-12-27] MEDS ORDERED: ACETYLCYSTEINE 10 %(100MG/ML) SOL 4ML ONE (08:42)
--- NOTE | 2019-12-27 08:55 | NUR ---
OR CREW AT BEDSIDE FROM BRONCHOSCOPY. AWARE. CONSENTS FOR ANESTHESIA OBTAINED FROM REGINALD, ATTEMPTED TO CONTACT TIAN BUT NO ANSWER.
[2019-12-27] MEDS ORDERED: MIDAZOLAM HCL 1MG/1ML-2 ML VIAL ONE (09:09)
--- NOTE | 2019-12-27 09:12 | NUR ---
Bedside procedure [id number] Bronchoscopy performed by at bedside with Or crew, primary nurse and R.t. VS post procedure 106/62 hr 77 pox 97% on 100%. Pt tolerated well.
[2019-12-27] MEDS: NOREPINEPHRINE 8 MG/250ML KIT 250 ML IV SCH ×2 (09:32→19:33)
[2019-12-27] MEDS: POTASSIUM EFFERVESENT TAB 25 MEQ GT SCH (10:00)
[2019-12-27] MEDS: PROPOFOL 100 ML IV SCH (10:06)
[2019-12-27] MEDS: fentaNYL Drip 2500mCg/250mlNS 250 ML IV SCH ×2 (10:06→17:49)
[2019-12-27] MEDS: PANTOPRAZOLE 40 MG/10 ML VIAL INJ IV SCH (10:06)
[2019-12-27] MEDS: SODIUM CHLOR 0.9% PF (SALINE LOCK) 10ML VIAL/SYR IV SCH ×2 (10:06→22:00)
[2019-12-27] MEDS: MIDAZOLAM DRIP 50 mg/50mL 50 ML IV SCH ×2 (10:07→14:37)
--- NOTE | 2019-12-27 10:45 | NUR ---
FAMILY/FRIEND REQUEST FOR UPDATE ATTEMPTED TO OBTAIN CONSENT FOR ARTERIAL LINE FROM TIAN SON, TIAN REQUESTING MARISSA GARCIA ( RADIOLOGIST) TO CONSENT FOR ALL PROCEDURES AT THIS TIME. TIAN ALSO INQUIRING OF TRANSFER TO HIGHER LEVEL OF CARE. NO CONSENTS OBTAINED FOR ARTERIAL LINE UNTIL UPDATES MARISSA. NUMBER OBTAINED. DR. CARLOS TO CALL WHEN AVAILABLE. MARISSA [phone].
--- NOTE | 2019-12-27 11:49 | NUR ---
Nutrition Followup Note Wt: 98.0 kg Pt intubated and sedated with propofol @ 29.4 ml/hr providing 776 kcals from fats. Pt is currently NPO initiated on PN support @ 62 ml/hr providing 91393 kcals, 90 gm proteins and 1020 NPCs. Pt with adequate energy intake from PN support as it meets 98-118% of est caloric needs and 121-103% of est protein needs with propofol on board Est energy needs 5040-7701 kcal/kg (25-30 kcal/kg IBW 67.3kg) , Est protein needs 67-87g (1-1.3g/kg IBW 67.3kg severe hypoalb) Will reassess prn. reassessed Labs: BUN 23 H, CA 7.5 L, GLU 166 H, ALB 1.5 L, PREALB 9.1 L. BM: Pt had 25 ml gastric drainage per RN doc. Skin: BS 10 high risk incision abd full details in RN WC doc PES: Inadequate oral intake r/t current medical condition aeb pt intubated and sedated with NPO Comments: 1) Advance diet as medically feasible 2) advance PN support to meet > 75% of needs. 3) F/u 2-3 days
--- NOTE | 2019-12-27 14:23 | NUR ---
DR. DON UPDATING FAMILY AT NURSES STATION ON PATIENTS STATUS. QUESTIONS AND CONCERNS ADDRESSED. FAMILY INQUIRING ABOUT TRANSFER TO HIGHER LEVEL OF CARE. SEE MD NOTES/ ORDERS.
--- NOTE | 2019-12-27 14:27 | NUR ---
Cooling Measures applied. Patient currently has temp of 101.3 , cooling measures in place.
--- NOTE | 2019-12-27 14:28 | NUR ---
PARTIAL LINEN CHANGE PATIENT TOLERATED PARTIAL LINEN CHANGE AT THIS TIME. FI02 70%. PEEP OF 10 POX 87-99%. MD AWARE. PATIENT UNSTABLE FOR TRANSFER DUE TO HIGH PEEP AND FI02 AT 70%.
[2019-12-27] MEDS: FUROSEMIDE INJECTION 100 MG in D5W 5% 100 ML IV SCH (14:36)
[2019-12-27] MEDS: ACETAMINOPHEN 650 MG RECT SUPP PR PRN (14:43)
--- NOTE | 2019-12-27 15:16 | NUR ---
U/S TECH AT BEDSIDE.
--- NOTE | 2019-12-27 16:14 | NUR ---
ARTERIAL LINE TO LEFT RADIAL. PLACED MD AT BEDSIDE USING STERILE TECHNIQUE. PT TOLERATED WELL.
[2019-12-27] MEDS ORDERED: TPN PER PHARMACY IV NR ×10 (20:00)
--- NOTE | 2019-12-27 20:15 | NUR ---
Respiratory note: NEW VENT ORDERS RECEIVED PER DR. CARLOS. PC RR20, PIP 20, PEEP 10, 50% FIO2. ABG TO FOLLOW, WILL CONTINUE TO MONITOR.
--- NOTE | 2019-12-27 20:50 | NUR ---
Respiratory note: VENT ORDER CLARIFICATION PER DR. CARLOS, PCV RR DECREASED TO 20, PIP 22, PEEP +10, I-TIME 0.9. ABG TO FOLLOW IN AM.
[2019-12-27] MEDS: LINEZOLID 600MG/300ML 300 ML IV SCH (22:50)
[2019-12-28] VITALS (106 sets, daily range): BP systolic 67–171; BP diastolic 43–101
[2019-12-28 04:57] LABS: Basophils # (auto) 0 10 ^3/uL (0-0.2); Basophils % (auto) 0.3 % (0.0-2.0); Eosinophils # (auto) 0.3 10 ^3/uL (0-0.8); Hematocrit 29.7 % (41.0-53.0); Hemoglobin 9.7 g/dL (13.5-17.5); Lymphocytes # (auto) 0.7 10 ^3/uL (0.4-5.4); Lymphocytes % (auto) 6.6 % (10.0-50.0); Mean Corpuscular Hemoglobin 28.3 pg (28.0-32.0); Mean Corpuscular Hgb Conc. 32.8 g/dL (32.0-36.0); Mean Corpuscular Volume 86.4 fL (80.0-100.0); Monocytes # (auto) 0.5 10 ^3/uL (0-1.3); Monocytes % (auto) 4.9 % (0.0-12.0); Neutrophils # (auto) 9.5 10 ^3/uL (1.6-8.6); Neutrophils % (auto) 85.2 % (37.0-80.0); Platelet Count (auto) 505 10^3/uL (140-450); Red Blood Cells 3.43 10^6/uL (4.5-5.90); Red Cell Distribution Width 15.2 % (11.8-14.3); White Blood Cell 11.1 10^3/uL (4.4-10.8)
[2019-12-28 05:22] LABS: Potassium 3.8 mmol/L (3.5-5.1)
[2019-12-28 05:33] LABS: Albumin 1.5 g/dL (3.4-5.0); BUN/Creatinine Ratio 31.7; Calcium 7.7 mg/dL (8.5-10.1); Magnesium 2.5 mg/dL (1.6-2.6)
[2019-12-28 05:40] LABS: Bilirubin, Total 0.7 mg/dL (0.2-1.0); Phosphorus 3.2 mg/dL (2.5-4.90); Total Protein 6.9 g/dL (6.4-8.2)
[2019-12-28] MEDS: ACCU-CHEK COMFORT CURVE STRIP VI SCH ×4 (06:00→18:00)
[2019-12-28] MEDS: InsuLIN REG 1unit/0.01ml Soln (100units/ml) SC SCH ×4 (06:00→18:00)
[2019-12-28] MEDS: MEROPENEM 1GM IVPB 100 ML IV SCH ×3 (06:09→22:00)
[2019-12-28] MEDS: MIDAZOLAM DRIP 50 mg/50mL 50 ML IV SCH ×2 (09:58→17:05)
[2019-12-28] MEDS: MICAFUNGIN SODIUM 100 MG in SODIUM CHL 0.9% 100 ML IV SCH (09:59)
[2019-12-28] MEDS: FUROSEMIDE INJECTION 100 MG in D5W 5% 100 ML IV SCH (09:59)
[2019-12-28] MEDS: SODIUM CHLOR 0.9% PF (SALINE LOCK) 10ML VIAL/SYR IV SCH ×2 (10:00→22:00)
[2019-12-28] MEDS: POTASSIUM EFFERVESENT TAB 25 MEQ GT SCH (10:00)
[2019-12-28] MEDS: PANTOPRAZOLE 40 MG/10 ML VIAL INJ IV SCH (10:55)
[2019-12-28] MEDS: PROPOFOL 100 ML IV SCH ×2 (10:56→15:53)
[2019-12-28] MEDS: LINEZOLID 600MG/300ML 300 ML IV SCH ×2 (10:56→23:00)
--- NOTE | 2019-12-28 11:30 | NUR ---
SON CAME TO DRESS OPERATOR AND REQUESTED NURSE TO COME MEET AT THE DRESS OPERATOR TO GET "TRANSFER PAPERS" THAT WERE FORMALLY INSISTING IN WRITING OF THE TRANSFER OF MR. JOSHUA TO HIGHER LEVEL OF CARE. UPON ARRIVING IN THE LOBBY THE SON, TIAN, HANDED SEALED ENVELOPED THAT WERE ADDRESSED TO THE WORKERS COMPENSATION DEFENSE ATTORNEY, CHIEF OF MEDICINE AND THE ASSET PROTECTION MANAGER OF THE HOSPITAL. LETTERS WERE PLACED IN THE PATIENT CHART AND DOCTOR CAROL WAS NOTIFIED.
--- NOTE | 2019-12-28 12:00 | NUR ---
DOCTOR CARLOS AT BEDSIDE ADJUSTED VENTILATOR SETTINGS. NEW ORDERS PLACED. RESPIRATORY AWARE.
[2019-12-28] MEDS: IPRATROPIUM BROM 0.5 MG/2.5ML INH SOL NEB PRN (12:15)
[2019-12-28] MEDS: ALBUTEROL SULF 2.5 MG/0.5ML(0.5%) NEB SOLN NEB PRN (12:15)
--- NOTE | 2019-12-28 15:04 | NUR ---
SPOKE TO DR CARLOS ABOUT PATIENTS ARTERIAL LINE AND REDNESS NOTED ABOVE ARTERIAL LINE SITE ON ARM WITH WARMTH. PER MD DISCONTINUE ARTERIAL LINE.
[2019-12-28] MEDS ORDERED: ENOXAPARIN SOD 40 MG/0.4 ML SYRINGE SC ONE (16:15)
[2019-12-28] MEDS ORDERED: METOCLOPRAMIDE HCL 5MG/ml INJ 2ml VIAL IV ONE (16:15)
[2019-12-28] MEDS ORDERED: Jevity 1.2 Cal/Fiber 1 Liter GT SCH (16:15)
--- NOTE | 2019-12-28 16:15 | NUR ---
DOCTOR MEDINA AT BEDSIDE. MD MADE AWARE OF REDNESS TO LEFT ARM NEAR ARTERIAL LINE SITE. ORDERED ULTRASOUND OF BILATERAL LOWER AND LEFT UPPER EXTREMITY. MD AWARE OF LETTERS RECEIVED FROM SON AND FAMILY'S REQUEST FOR TRANSFER TO HIGHER LEVEL OF CARE. MD SPOKE WITH SON VIA TELEPHONE AND UPDATED ON PATIENT STATUS, MD AGREED TO PLACE ORDERS TO TRANSFER TO HIGHER LEVEL OF CARE.
--- NOTE | 2019-12-28 16:30 | NUR ---
A LINE REMOVED APPLIED MANUAL PRESSURE FOR 5 MINUTES. NO BLEEDING OR HEMATOMA NOTED. APPLIED STERILE GAUZE AND PRESSURE DRESSING TO SITE. WILL CONTINUE TO MONITOR.
--- NOTE | 2019-12-28 16:54 | NUR ---
I faxed transfer to higher level of care (per family request) order/clinical information to [facility], [facility] and [facility].
[2019-12-28] MEDS: fentaNYL Drip 2500mCg/250mlNS 250 ML IV SCH (17:05)
--- NOTE | 2019-12-28 17:36 | NUR ---
SPOKE WITH DAVE AT [facility] FAXED OVER COVID RESULTS. DAVE WILL CALL FOR UPDATES ON PATIENT STATUS. THEY ARE NOT ACCEPTING THE TRANSFER AT THIS MOMENT, BUT WILL CONTINUE TO UPDATE.
--- NOTE | 2019-12-28 17:45 | NUR ---
NDT INSPECTOR AT BEDSIDE.
[2019-12-28] MEDS: NOREPINEPHRINE 8 MG/250ML KIT 250 ML IV SCH (19:33)
[2019-12-28] MEDS ORDERED: TPN PER PHARMACY IV NR ×9 (20:00)
[2019-12-28] MEDS: METOCLOPRAMIDE HCL 5MG/ml INJ 2ml VIAL IV SCH (22:00)
[2019-12-29] VITALS (80 sets, daily range): BP systolic 85–143; BP diastolic 41–70
[2019-12-29] MEDS: MEROPENEM 1GM IVPB 100 ML IV SCH ×3 (06:00→22:00)
[2019-12-29] MEDS: InsuLIN REG 1unit/0.01ml Soln (100units/ml) SC SCH ×4 (06:00→18:00)
[2019-12-29 06:09] LABS: Mean Corpuscular Hemoglobin 28.2 pg (28.0-32.0); White Blood Cell 8.4 10^3/uL (4.4-10.8)
[2019-12-29 06:11] LABS: Hematocrit 30.8 % (41.0-53.0); Mean Corpuscular Hgb Conc. 32.5 g/dL (32.0-36.0); Mean Corpuscular Volume 86.7 fL (80.0-100.0); Platelet Count (auto) 477 10^3/uL (140-450); Red Blood Cells 3.55 10^6/uL (4.5-5.90); Red Cell Distribution Width 14.9 % (11.8-14.3)
[2019-12-29 06:16] LABS: Potassium 4.1 mmol/L (3.5-5.1)
[2019-12-29 06:23] LABS: Albumin 1.5 g/dL (3.4-5.0); BUN/Creatinine Ratio 34.8; Calcium 7.7 mg/dL (8.5-10.1); Magnesium 2.4 mg/dL (1.6-2.6)
[2019-12-29] MEDS: METOCLOPRAMIDE HCL 5MG/ml INJ 2ml VIAL IV SCH ×3 (06:23→22:00)
[2019-12-29] MEDS: ACCU-CHEK COMFORT CURVE STRIP VI SCH ×4 (06:24→18:00)
[2019-12-29 06:25] LABS: Bilirubin, Total 0.7 mg/dL (0.2-1.0); Phosphorus 3.6 mg/dL (2.5-4.90); Total Protein 7.2 g/dL (6.4-8.2)
[2019-12-29] MEDS: FUROSEMIDE INJECTION 100 MG in D5W 5% 100 ML IV SCH (06:34)
[2019-12-29 07:15] LABS: Basophils % (manual) 0 (0.0-2.0); Blast Cells 0; Metamyelocytes % 0; Myelocytes % 0; Promyelocytes % 0
--- NOTE | 2019-12-29 07:40 | NUR ---
ASSESS- PT. LYING IN BED ON VENT SIZE# 8.0 ET, 26 AT THE LIP, PC-18, PRESSURE-20, PEEP-10, FIO2-40%. LUNGS CLEAR SUHAS. INSPIRATORY AND EXPIRATORY. PT. HAS GAG/COUGH REFLEX. PROPOFOL GTT. AT 40 MCG., FENTANYL GTT. AT 200 MCG., AND VERSED GTT. AT 10 MG./HR. PICC DONALD TLC INTACT. LASIX GTT. AT 5MG./HR. ABD. SOFT, FLAT. BOWEL SOUNDS HYPOACTIVE ALL FOUR QUADRANTS. NGT RT. NARE TO LIS WITH BILE DRAINAGE. TPN AT 67 CC/HR. F/C TO GRAVITY WITH CLEAR YELLOW URINE. MID-LINE ABD. INCISION S/P LAP BESS WITH SM. DSG. D/I, OLD BLOOD DRIED. RADIAL PULSES STRONG, PALPABLE SUHAS. DORSALIS PEDAL PULSES STRONG, PALPABLE SUHAS. 2 PLUS EDEMA ARMS SUHAS. 1 PLUS EDEMA LE SUHAS. SCD TO RT. LEG. BP CUFF ON LT. CALF. RECTAL PROBE IN PLACE.
--- NOTE | 2019-12-29 07:50 | NUR ---
SBP 130'S. TITRATED LEVOPHED GTT. OFF AT 2 MCG. MONITORING BP.
[2019-12-29] MEDS: MIDAZOLAM DRIP 50 mg/50mL 50 ML IV SCH ×2 (07:52→14:43)
--- NOTE | 2019-12-29 08:00 | NUR ---
TEMP 101.3 RECTALLY. COOLING BLANKET ON UNDER PT. WITH SHEET OVER. NO COVERS ON PT. MONITORING TEMP.
--- NOTE | 2019-12-29 08:30 | NUR ---
SBP ONE TEENS TO UPPER 100'S.
[2019-12-29] MEDS: PROPOFOL 100 ML IV SCH ×3 (08:57→16:53)
--- NOTE | 2019-12-29 09:38 | NUR ---
DR. SILVERIO Provider/Hospitalist at bedside. GAVE UPDATE ON PT.
[2019-12-29] MEDS: PANTOPRAZOLE 40 MG/10 ML VIAL INJ IV SCH (09:49)
[2019-12-29] MEDS: POTASSIUM EFFERVESENT TAB 25 MEQ GT SCH (09:49)
[2019-12-29] MEDS: ENOXAPARIN SOD 40 MG/0.4 ML SYRINGE SC SCH (09:50)
[2019-12-29] MEDS: MICAFUNGIN SODIUM 100 MG in SODIUM CHL 0.9% 100 ML IV SCH (09:51)
[2019-12-29] MEDS: SODIUM CHLOR 0.9% PF (SALINE LOCK) 10ML VIAL/SYR IV SCH ×2 (09:51→22:00)
[2019-12-29] MEDS: LINEZOLID 600MG/300ML 300 ML IV SCH ×2 (09:51→23:30)
--- NOTE | 2019-12-29 11:18 | NUR ---
I received a call from Milli at the [facility] Transfer Center letting me know that they are not accepting family request transfers at this time.
[2019-12-29 11:43] LABS: Band Neutrophils % (manual) 3; Eosinophils % (manual) 2 (0-7); Lymphocytes % (manual) 7 (10.0-50.0); Monocytes % (manual) 7 (0-12); Reactive Lymphocytes 3
--- NOTE | 2019-12-29 12:00 | NUR ---
TEMP 98.8 RECTALLY. TURNED OFF COOLING BLANKET. CONTINUING TO MONITOR TEMP.
--- NOTE | 2019-12-29 12:19 | NUR ---
Nutrition Followup Note Wt: 98.0 kg Pt intubated and sedated with propofol @ 29.4 ml/hr providing 776 kcals from fats. Pt is currently NPO initiated on PN support @ 67 ml/hr providing 1250 kcals, 100 gm proteins and 850 NPCs. Pt with adequate energy intake from PN support as it meets >100% of energy and protein needs. Est energy needs 0402-3152 kcal/kg (25-30 kcal/kg IBW 67.3kg) , Est protein needs 67-87g (1-1.3g/kg IBW 67.3kg severe hypoalb) Will reassess prn. reassessed Labs: BUN 23H, Creat 0.66L, Alb 1.5L, Ca 7.7L BM: Pt had 550 ml gastric drainage 12/28 per RN doc. Skin: BS 12 high risk incision abd full details in RN WC doc PES: Inadequate oral intake r/t current medical condition aeb pt intubated and sedated with NPO Comments: 1) Advance diet as medically feasible 2) Continue PN support to meet > 75% of needs. 3) F/u 2-3 days
--- NOTE | 2019-12-29 12:40 | NUR ---
DR. CARLOS Provider/Hospitalist at bedside.
--- NOTE | 2019-12-29 14:02 | NUR ---
DR. DON Provider/Hospitalist at bedside. GAVE UPDATE ON PT. NEW ORDERS RECEIVED.
--- NOTE | 2019-12-29 14:58 | NUR ---
1450 12/29/19 I called [facility] Psychology Lecturer Cristina [phone] extension [phone] and requested that authorization be provided for patient's continued stay. Per Cristina, inpatient stay continues to be authorized. I made Cristina aware of the transfer to higher level of care order per family request. Per Cristina-that is not something they would normally authorize-there has to be something specific that the other facility can do that we can't do here-she requested that I fax her the order along with today's clinical information. She will present it to her medical assembly and will give me a call to let me know if they will authorize this transfer.
[2019-12-29] MEDS: fentaNYL Drip 2500mCg/250mlNS 250 ML IV SCH (15:32)
[2019-12-29] MEDS: NOREPINEPHRINE 8 MG/250ML KIT 250 ML IV SCH (15:33)
--- NOTE | 2019-12-29 17:00 | NUR ---
SBP ONE TEENS TO 120'S. MAP >65. TITRATING LEVOPHED GTT. DOWN SLOWLY TO KEEP SBP>90 OR MAP >[address] DON[address] MONITORING BP.
[2019-12-29] MEDS ORDERED: TPN PER PHARMACY IV NR ×9 (20:00)
[2019-12-30] VITALS (107 sets, daily range): BP systolic 83–136; BP diastolic 43–78
[2019-12-30] MEDS: FUROSEMIDE INJECTION 100 MG in D5W 5% 100 ML IV SCH ×2 (02:25→07:52)
[2019-12-30 04:23] LABS: Basophils # (auto) 0 10 ^3/uL (0-0.2); Eosinophils # (auto) 0.4 10 ^3/uL (0-0.8); Hemoglobin 9.7 g/dL (13.5-17.5); Lymphocytes # (auto) 0.7 10 ^3/uL (0.4-5.4); Monocytes # (auto) 0.5 10 ^3/uL (0-1.3)
[2019-12-30 04:30] LABS: Basophils % (auto) 0.1 % (0.0-2.0); Eosinophils % (auto) 4.7 % (0.0-7.0); Hematocrit 29.1 % (41.0-53.0); Lymphocytes % (auto) 7.9 % (10.0-50.0); Mean Corpuscular Hemoglobin 28.6 pg (28.0-32.0); Mean Corpuscular Hgb Conc. 33.2 g/dL (32.0-36.0); Mean Corpuscular Volume 86.3 fL (80.0-100.0); Monocytes % (auto) 5.5 % (0.0-12.0); Neutrophils # (auto) 7.3 10 ^3/uL (1.6-8.6); Neutrophils % (auto) 81.8 % (37.0-80.0); Platelet Count (auto) 510 10^3/uL (140-450); Red Blood Cells 3.37 10^6/uL (4.5-5.90); Red Cell Distribution Width 14.9 % (11.8-14.3); White Blood Cell 8.9 10^3/uL (4.4-10.8)
[2019-12-30 04:39] LABS: Albumin 1.6 g/dL (3.4-5.0); Calcium 7.7 mg/dL (8.5-10.1); Magnesium 2.5 mg/dL (1.6-2.6); Potassium 3.7 mmol/L (3.5-5.1)
[2019-12-30 04:43] LABS: BUN/Creatinine Ratio 35.5; Bilirubin, Total 0.6 mg/dL (0.2-1.0); Phosphorus 3.7 mg/dL (2.5-4.90); Total Protein 7.3 g/dL (6.4-8.2)
[2019-12-30] MEDS: InsuLIN REG 1unit/0.01ml Soln (100units/ml) SC SCH ×4 (06:00→17:44)
[2019-12-30] MEDS: ACCU-CHEK COMFORT CURVE STRIP VI SCH ×4 (06:00→17:44)
[2019-12-30] MEDS: METOCLOPRAMIDE HCL 5MG/ml INJ 2ml VIAL IV SCH ×3 (06:18→22:12)
[2019-12-30] MEDS: MEROPENEM 1GM IVPB 100 ML IV SCH ×3 (06:18→22:12)
--- NOTE | 2019-12-30 08:50 | NUR ---
DR SILVEROI AT BEDSIDE, EXAMINED PATIENT. NO NEW ORDERS. AWARE OF LATEST CERTIFIED MASSAGE THERAPIST NOTE REGARDING FAMILY REQUEST TO TRANSFER TO [facility].
[2019-12-30] MEDS: PANTOPRAZOLE 40 MG/10 ML VIAL INJ IV SCH (09:36)
[2019-12-30] MEDS: MICAFUNGIN SODIUM 100 MG in SODIUM CHL 0.9% 100 ML IV SCH (09:36)
[2019-12-30] MEDS: SODIUM CHLOR 0.9% PF (SALINE LOCK) 10ML VIAL/SYR IV SCH ×2 (09:37→22:12)
[2019-12-30] MEDS: POTASSIUM EFFERVESENT TAB 25 MEQ GT SCH (09:37)
[2019-12-30] MEDS: ENOXAPARIN SOD 40 MG/0.4 ML SYRINGE SC SCH (09:37)
--- NOTE | 2019-12-30 09:45 | NUR ---
RECTAL TEMP 100.4, COOLING BLANKET TURNED ON AND ICE PACKS TO BILATERAL AXILLAE
--- NOTE | 2019-12-30 10:47 | NUR ---
SPOKE WITH SON TIAN JOSHUA AFTER PROVIDING CORRECT PASSWORD, UPDATED ON PLAN OF CARE AND ALL QUESTIONS ADDRESSED. REQUESTING DR CARLOS TO SPEAK WITH HIM.
--- NOTE | 2019-12-30 11:10 | NUR ---
DR CARLOS AT BEDSIDE AND EXAMINED PATIENT
--- NOTE | 2019-12-30 11:15 | NUR ---
DR CARLOS SPOKE WITH SON TIAN AND UPDATED ON PLAN OF CARE AND STATUS.
--- NOTE | 2019-12-30 11:20 | NUR ---
DR CARLOS AT BEDSIDE AND DECREASED FIO2 TO 35%
[2019-12-30] MEDS: PROPOFOL 100 ML IV SCH ×3 (11:21→22:00)
[2019-12-30] MEDS: LINEZOLID 600MG/300ML 300 ML IV SCH (11:55)
[2019-12-30] MEDS: ACETAMINOPHEN 650 MG RECT SUPP PR PRN (13:49)
[2019-12-30] MEDS: fentaNYL Drip 2500mCg/250mlNS 250 ML IV SCH (14:00)
--- NOTE | 2019-12-30 14:45 | NUR ---
DR DON AT BEDSIDE, AWARE TEMP HIGH OF 102 RECTALLY TODAY WITH RN PROVIDING COOLING MEASURES/TYLENOL ORDERED. GAVE NEW ORDER FOR BLOOD CULTURES AND SPUTUM CULTURE.
--- NOTE | 2019-12-30 17:52 | NUR ---
COOLING BLANKET TURNED OFF SEE VS SPREADSHEET FOR TEMP
--- NOTE | 2019-12-30 17:58 | NUR ---
Respiratory note: RECEIVED PT ON VENT V5, VENT CONNECTED TO RED OUTLET AND O2 SOURCE. ALARMS ARE SET AND AUDIBLE. AMBU BAG AND MASK AT BEDSIDE. BS ARE DIMINISHED T/O, LAVAGED SXD FOR LARGE TENACIOUS SECRETIONS. RT NAME AND PAGER ASSIGNMENT WRITTEN ON PTS ROOM BOARD WILL CONTINUE TO MONITOR.
--- NOTE | 2019-12-30 19:20 | NUR ---
OPENING SHIFT RECEIVED REPORT FROM DAY SHIFT RN. ASSUMED CARE OF PATIENT. PATIENT INTUBATED AND SEDATED WITH NO SIGNS OR SYMPTOMS OF SOB, PAIN OR DISTRESS. RIGHT UPPER ARM PICC TLC - CLEAN/DRY/INTACT. WALTON HUNG TO GRAVITY. REPOSITIONED FOR COMFORT. RIGHT ABDOMINAL JEFF DRAIN - PATENT AND DRAINING, CLEAN/DRY/INTACT AND OPEN TO AIR. MIDLINE INCISIONS X2 - CLEAN/DRY/INTACT AND OPEN TO AIR. SEDATION VERSED - 10MG/HR FENTANYL - 200MCG/HR PROPOFOL - 30MCG/KG/MIN LASIX GTT - 5.5ML/HR BED IN LOWEST POSITION, SIDE RAILS UP X2. WILL CONTINUE TO MONITOR.
[2019-12-30] MEDS: NOREPINEPHRINE 8 MG/250ML KIT 250 ML IV SCH (19:33)
[2019-12-30] MEDS ORDERED: TPN PER PHARMACY IV NR ×8 (20:00)
[2019-12-30] MEDS: MIDAZOLAM DRIP 50 mg/50mL 50 ML IV SCH (23:59)
[2019-12-31] VITALS (108 sets, daily range): BP systolic 88–136; BP diastolic 47–76
--- NOTE | 2019-12-31 00:34 | NUR ---
Respiratory note: AT BEDSIDE FOR ROUTINE VENT CHECK. RN ANSLEY COMMUNICATED PT HAS COURSE WHEEZES HEARD T/O. BS CONFIRMED, MED NEB TX GIVEN INLINE WITHOUT ADVERSE REACTIONS. LAVAGED FOR LARGE AMOUNT OF VERY THICK PALE YELLOW SECRETIONS. SPUTUM SAMPLE OBTAINED AND SENT TO LAB, NO CHANGES MADE WILL CONTINUE TO MONITOR. WILL CONTINUE TO MONITOR.
[2019-12-31] MEDS: fentaNYL Drip 2500mCg/250mlNS 250 ML IV SCH ×2 (02:00→13:37)
--- NOTE | 2019-12-31 02:45 | NUR ---
MORNING CARE PERFORMED MORNING CARE WITH CHG WIPES. PARTIAL LINEN CHANGE AND GOWN CHANGE. ORAL AND WALTON CARE PERFORMED. REPOSITIONED FOR COMFORT. SKIN REASSESSED AT THIS TIME, NOTED REDNESS DEVELOPING AROUND BACK SIDE AND AROUND THE ABDOMEN. BED IN LOWEST POSITION, SIDE RAILS UP X2. WILL CONTINUE TO MONITOR.
[2019-12-31] MEDS: PROPOFOL 100 ML IV SCH ×4 (03:00→17:46)
--- NOTE | 2019-12-31 03:35 | NUR ---
SPOKE WITH HOSPITALIST MADE AWARE OF REDNESS AROUND ABDOMEN AND BACK SIDE. RECEIVED ORDERS FOR SOLUMEDROL 40MG IV AND BENADRYL 25MG IV. WILL CONTINUE TO MONITOR.
[2019-12-31] MEDS ORDERED: methylPREDNISolone SOD SUCC 40 MG/ML VL IV ONE (03:45)
[2019-12-31] MEDS ORDERED: diphenhdrAMINE HCL 50 MG/1 ML VL IV ONE (03:45)
[2019-12-31] MEDS: MIDAZOLAM DRIP 50 mg/50mL 50 ML IV SCH ×4 (04:00→20:00)
[2019-12-31 04:32] LABS: Basophils # (auto) 0 10 ^3/uL (0-0.2); Eosinophils # (auto) 0.5 10 ^3/uL (0-0.8); Monocytes # (auto) 0.6 10 ^3/uL (0-1.3)
[2019-12-31 04:35] LABS: Basophils % (auto) 0.3 % (0.0-2.0); Eosinophils % (auto) 5.3 % (0.0-7.0); Hematocrit 29.6 % (41.0-53.0); Hemoglobin 9.8 g/dL (13.5-17.5); Lymphocytes # (auto) 0.8 10 ^3/uL (0.4-5.4); Lymphocytes % (auto) 8.5 % (10.0-50.0); Mean Corpuscular Hemoglobin 28.6 pg (28.0-32.0); Mean Corpuscular Volume 86.5 fL (80.0-100.0); Neutrophils % (auto) 78.9 % (37.0-80.0); Platelet Count (auto) 549 10^3/uL (140-450); Red Blood Cells 3.42 10^6/uL (4.5-5.90); Red Cell Distribution Width 15.1 % (11.8-14.3); White Blood Cell 8.9 10^3/uL (4.4-10.8)
[2019-12-31 04:51] LABS: Potassium 4.1 mmol/L (3.5-5.1)
[2019-12-31 05:00] LABS: Albumin 1.6 g/dL (3.4-5.0); BUN/Creatinine Ratio 35.3; Bilirubin, Total 0.6 mg/dL (0.2-1.0); Calcium 7.9 mg/dL (8.5-10.1); Magnesium 2.6 mg/dL (1.6-2.6); Phosphorus 4.4 mg/dL (2.5-4.90); Total Protein 7.6 g/dL (6.4-8.2)
[2019-12-31] MEDS: ACCU-CHEK COMFORT CURVE STRIP VI SCH ×5 (05:51→23:57)
[2019-12-31] MEDS: InsuLIN REG 1unit/0.01ml Soln (100units/ml) SC SCH ×5 (05:51→23:57)
[2019-12-31] MEDS: METOCLOPRAMIDE HCL 5MG/ml INJ 2ml VIAL IV SCH ×3 (06:24→22:00)
[2019-12-31] MEDS: MEROPENEM 1GM IVPB 100 ML IV SCH ×3 (06:24→22:00)
--- NOTE | 2019-12-31 07:08 | NUR ---
END OF SHIFT REPORT GIVEN TO DAY SHIFT RN. CARE ENDORSED.
--- NOTE | 2019-12-31 07:40 | NUR ---
ASSESS- PT. LYING IN BED ON VENT SIZE# 8.0 ET, 26 AT THE LIP, PC-18, PRESSURE-20, PEEP-10, FIO2-40%. PT. HAS HYPOACTIVE GAG/COUGH REFLEX. LUNGS CLEAR SUHAS. INSPIRATORY AND EXPIRATORY. PUPILS 2 AND SLUGGISH SUHAS. ON FENTANYL GTT. AT 200 MCG., VERSED GTT. AT 12 MG./HR., AND PROPOFOL GTT. AT 30 MCG. NGT RT. NARE INTACT. ABD. SOFT, FLAT. BOWEL SOUNDS HYPOACTIVE ALL FOUR QUADRANTS. NO EMESIS. F/C TO GRAVITY WITH CLEAR YELLOW URINE WITH GREEN TINGE. PICC DONALD TLC INTACT. TPN AT 67 CC/HR. LASIX GTT. AT 5MG./HR. RECTAL PROBE IN PLACE. RADIAL PULSES STRONG, PALPABLE SUHAS. DORSALIS PEDAL PULSES STRONG, PALPABLE SUHAS. 2 PLUS EDEMA ARMS SUHAS. 1 PLUS EDEMA LE SUHAS. SCD TO RLE. LT. OUTER EARLOBE WITH DTI, OPEN TO AIR. RASH TO TRUNK AND LATERAL SIDES AND INNER THIGHS/GROIN AREA.
--- NOTE | 2019-12-31 08:00 | NUR ---
RECTAL TEMP 100.0. TURNED ON COOLING BLANKET THAT IS UNDER PT. COVERED BY SHEET. MONITORING TEMP.
[2019-12-31] MEDS: PANTOPRAZOLE 40 MG/10 ML VIAL INJ IV SCH (09:34)
[2019-12-31] MEDS: POTASSIUM EFFERVESENT TAB 25 MEQ GT SCH (09:34)
[2019-12-31] MEDS: MICAFUNGIN SODIUM 100 MG in SODIUM CHL 0.9% 100 ML IV SCH (09:35)
[2019-12-31] MEDS: SODIUM CHLOR 0.9% PF (SALINE LOCK) 10ML VIAL/SYR IV SCH ×2 (09:36→22:21)
[2019-12-31] MEDS: ENOXAPARIN SOD 40 MG/0.4 ML SYRINGE SC SCH (09:36)
--- NOTE | 2019-12-31 10:08 | NUR ---
Nutrition Followup Note Wt: 98.0 kg Per RN medical team attempting to initiate TF, currently held d/t residuals. Pt intubated and sedated with propofol @ 17.64 ml/hr providing 466 kcals from fats. Pt is currently NPO initiated on PN support @ 67 ml/hr providing 1250 kcals, 100 gm proteins and 850 NPCs. Pt with adequate energy intake from PN support as it meets >100% of energy and protein needs. Est energy needs 1764-2600 kcal/kg (25-30 kcal/kg IBW 67.3kg) , Est protein needs 67-87g (1-1.3g/kg IBW 67.3kg severe hypoalb) Will reassess prn. reassessed Labs: BUN 24H, Creat 0.68L, Gluc 122H, Alb 1.6L, Ca 7.9L BM: Pt had 400 ml gastric drainage 12/30 per RN doc. Skin: BS 11 high risk incision abd full details in RN WC doc PES: Inadequate oral intake r/t current medical condition aeb pt intubated and sedated with NPO Comments: 1) Advance diet as medically feasible 2) Continue PN support to meet > 75% of needs. 3) F/u 2-3 days
--- NOTE | 2019-12-31 11:20 | NUR ---
DR. CARLOS Provider/Hospitalist at bedside. GAVE UPDATE ON PT. NEW ORDERS RECEIVED.
--- NOTE | 2019-12-31 11:30 | NUR ---
RECTAL TEMP 98.6. TURNED OFF COOLING BLANKET.
--- NOTE | 2019-12-31 11:45 | NUR ---
WOUND CARE NOTE: IN TO SEE PATIENT AT THIS TIME FOR SKIN INTEGRITY. PATIENT CONTINUES TO BE INTUBATED, SEDATED IN ROOM 103A. PATIENT HAS CURRENT YANIRA SCORE OF 11. PATIENT IS NOTED TO HAVE A NON BLANCHABLE RED LEFT EAR, FROM PATIENT FAVORING LEFT SIDED POSITIONING OF HEAD. SKIN IS INTACT, DARK RED. LEFT OPEN TO AIR. PATIENT ALSO HAS DEVELOPED WHAT APPEARS TO BE AN ALLERGY RASH TO THE SKIN OF BILATERAL THIGHS HIPS, ABD/FLANK. SKIN REMAINS INTACT, LEFT OPEN TO AIR. SURGICAL INCISION SITES TO ABDOMEN CONTINUES TO BE STAPLED CLOSED., LEFT OPEN TO AIR. JEFF DRAIN REMAINS WITHIN RIGHT ABDOMEN, WITH SEROSANGUINOUS DRAINAGE NOTED WITHIN JEFF DRAIN. WOUND PHOTOS TAKEN OF ALL CONCERNS FOR REFERENCE. PATIENT REPOSITIONED ONTO RIGHT SIDE, REDISTRIBUTING PRESSURE POINTS USING PILLOWS/WEDGES. BEDSIDE NURSE IS AWARE OF PATIENT'S RASH. RECOMMEND: OFFLOADING OF PRESSURE TO THE LEFT EAR, AVOIDING POSITIONING DIRECTLY ONTO LEFT EARLOBE, CONTINUATION WITH ALL WOUND CARE ORDERS PREVIOUSLY PRESCRIBED BY MD, CONTINUATION WITH WOUND CARE MONITORING. Addendum: 12/31/19 at 1838 by Riri Mosley RN Amended: Links added.
--- NOTE | 2019-12-31 11:45 | NUR ---
WOUND CARE SURYA RN HERE TO EVALUATE PT. PT. HAS DTI TO LT. OUTER EARLOBE. RASH TO TRUNK OF BODY AND SUHAS. THIGHS/GROIN AREA.
--- NOTE | 2019-12-31 12:30 | NUR ---
Respiratory note: TITRATED FIO2 TO 30%. MASHA DE JESUS MADE AWARE. ABG IN 2- [address] CARLOS.
--- NOTE | 2019-12-31 13:00 | NUR ---
AUSCULTATED GOOD PLACEMENT WITH NGT. RESIDUAL 20 CC. NO EMESIS. RESTARTED JEVITY AT 10 CC/HR.
--- NOTE | 2019-12-31 15:50 | NUR ---
CHECKED RESIDUAL FROM NGT TF APPROXIMATELY 100 CC. TURNED OFF JEVITY THAT WAS RUNNING AT 10 CC/HR. NO EMESIS. NO BM. BOWEL SOUNDS HYPOACTIVE ALL FOUR QUADRANTS.
--- NOTE | 2019-12-31 16:00 | NUR ---
RECTAL TEMP INCREASED TO 99.5. TURNED COOLING BLANKET ON. MONITORING PT.
[2019-12-31] MEDS: FUROSEMIDE INJECTION 100 MG in D5W 5% 100 ML IV SCH ×2 (17:17→20:00)
[2019-12-31] MEDS: NOREPINEPHRINE 8 MG/250ML KIT 250 ML IV SCH (17:17)
--- NOTE | 2019-12-31 17:45 | NUR ---
TEMP 98.6 RECTALLY. TURNED OFF COOLING BLANKET. MONITORING TEMP.
--- NOTE | 2019-12-31 19:00 | NUR ---
Report received from day shift RN. Care endorsed to this parts data writer Markie FLANAGAN.
[2019-12-31] MEDS ORDERED: TPN PER PHARMACY IV NR ×8 (20:00)
--- NOTE | 2019-12-31 22:00 | NUR ---
Temp: Patient noted with a rectal temp of 100.2. Cooling blanket turned on. RN will continue to monitor patient's temp.
--- NOTE | 2019-12-31 23:55 | NUR ---
RT increased patient's FIO2 back to 40% d/t patient sating in the high 88-89% consistently despite suctioning by RN and RT. Patient was then noted to have an increased O2 Sat of 95%. RN will continue to monitor and assess patient.
[2020-01-01] VITALS (102 sets, daily range): BP systolic 79–157; BP diastolic 41–76
[2020-01-01] MEDS: fentaNYL Drip 2500mCg/250mlNS 250 ML IV SCH ×2 (00:51→13:53)
--- NOTE | 2020-01-01 02:46 | NUR ---
Bed bath: Patient given a bed bath and linen change provided. Patient tolerated nursing intervention well with no s/s of discomfort or distress. Optifoam to sacrum changed.
[2020-01-01 04:41] LABS: Red Blood Cells 3.61 10^6/uL (4.5-5.90)
[2020-01-01 04:44] LABS: Hematocrit 30.9 % (41.0-53.0); Hemoglobin 10.3 g/dL (13.5-17.5); Mean Corpuscular Hemoglobin 28.7 pg (28.0-32.0); Mean Corpuscular Hgb Conc. 33.5 g/dL (32.0-36.0); Mean Corpuscular Volume 85.6 fL (80.0-100.0); Platelet Count (auto) 561 10^3/uL (140-450); Red Cell Distribution Width 14.9 % (11.8-14.3); White Blood Cell 9.7 10^3/uL (4.4-10.8)
[2020-01-01 05:07] LABS: Potassium 3.8 mmol/L (3.5-5.1)
[2020-01-01 05:14] LABS: BUN/Creatinine Ratio 36.4; Bilirubin, Total 0.6 mg/dL (0.2-1.0); Calcium 8.1 mg/dL (8.5-10.1); Magnesium 2.4 mg/dL (1.6-2.6); Phosphorus 3.6 mg/dL (2.5-4.90); Total Protein 8.4 g/dL (6.4-8.2)
[2020-01-01 05:22] LABS: Basophils % (manual) 0 (0.0-2.0); Blast Cells 0; Metamyelocytes % 0; Myelocytes % 0; Promyelocytes % 0; Reactive Lymphocytes 0
[2020-01-01] MEDS: ACETAMINOPHEN 650 MG RECT SUPP PR PRN (05:28)
[2020-01-01] MEDS: METOCLOPRAMIDE HCL 5MG/ml INJ 2ml VIAL IV SCH ×3 (05:30→21:45)
[2020-01-01] MEDS: MEROPENEM 1GM IVPB 100 ML IV SCH ×3 (05:30→21:45)
[2020-01-01] MEDS: InsuLIN REG 1unit/0.01ml Soln (100units/ml) SC SCH ×4 (05:36→23:53)
[2020-01-01] MEDS: ACCU-CHEK COMFORT CURVE STRIP VI SCH ×4 (05:36→23:50)
[2020-01-01 06:33] LABS: Band Neutrophils % (manual) 4; Eosinophils % (manual) 6 (0-7); Lymphocytes % (manual) 7 (10.0-50.0); Monocytes % (manual) 7 (0-12)
--- NOTE | 2020-01-01 07:30 | NUR ---
Report received Patients ventilator alarming as patient is breathing irregularly and over the ventilator. Sedation increased for comfort and synchrony of ventilator. See physical assessment/ Iv spreadsheet.
--- NOTE | 2020-01-01 08:00 | NUR ---
RESIDENT INSPECTOR AT BEDSIDE DR. CARLOS AT BEDSIDE. SEE NEW ORDERS. RT. AWARE. Addendum: 01/01/20 at 1250 by Bhavani Baird RN WRONG TIME : 1230
[2020-01-01] MEDS: SODIUM CHLOR 0.9% PF (SALINE LOCK) 10ML VIAL/SYR IV SCH ×2 (08:54→21:45)
[2020-01-01] MEDS: POTASSIUM EFFERVESENT TAB 25 MEQ GT SCH (08:54)
[2020-01-01] MEDS: ENOXAPARIN SOD 40 MG/0.4 ML SYRINGE SC SCH (08:54)
[2020-01-01] MEDS: PROPOFOL 100 ML IV SCH ×2 (08:54→17:53)
[2020-01-01] MEDS: PANTOPRAZOLE 40 MG/10 ML VIAL INJ IV SCH (08:54)
--- NOTE | 2020-01-01 09:30 | NUR ---
Warming Measures applied. Patient currently has temp of 97.2 , warming measures in place.
[2020-01-01] MEDS: MICAFUNGIN SODIUM 100 MG in SODIUM CHL 0.9% 100 ML IV SCH (10:00)
--- NOTE | 2020-01-01 10:00 | NUR ---
GI NO GASTRIC RESIDUAL NOTED VIA NG. MORNING MEDICATION GIVEN WITH 100CC. IF PT TOLERATES, TUBE FEEDINGS TO BE RESTARTED.
--- NOTE | 2020-01-01 11:52 | NUR ---
Bp trending in the 80's. Sedation decreased at this time. Will continue to monitor.
--- NOTE | 2020-01-01 12:01 | NUR ---
1200 01/01/20 I contacted [facility] to request that authorization be provided for patient's continued stay. Unable to reach lead case manager after 2 phone call attempts. Provided message stating the above on voice mail at [phone] extension [phone]. I also left message asking about LTAC placement-asking if they are contracted with [facility].
--- NOTE | 2020-01-01 13:00 | NUR ---
MD ROUNDS DR. DON AT BEDSIDE. UPDATED ON PATIENTS STATUS. NEW ORDERS IN PLACE.
[2020-01-01] MEDS: NOREPINEPHRINE 8 MG/250ML KIT 250 ML IV SCH (15:22)
--- NOTE | 2020-01-01 15:39 | NUR ---
DOBBHOFF PLACEMENT DOBBHOFF PLACED TO RIGHT NG PER MD ORDERS. PROTOCOL FOLLOWED. XRAY ORDERED FOR PLACEMENT VERIFICATION. PT TOLERATED WELL.
--- NOTE | 2020-01-01 15:40 | NUR ---
I spoke with Dr. Munguia regarding the plan of care for this patient-he will order LTAC tomorrow if patient unable to be extubated. I spoke with patient's son Rui [phone]-updated him on the plan of care and explained how the transfer to LTAC/[facility] would work once ordered. I answered all his questions.
--- NOTE | 2020-01-01 16:28 | NUR ---
JAMMIE REMOVED JAMMIE TO ABDOMEN REMOVED ORDERED BY MD. DRY SKIN NOTED AROUND JAMMIE WITH AREAS OF HYPERPIGMENTATION. AREA WELL APPROXIMATED, NO DRAINAGE OR REDNESS NOTED. PT TOLERATED WELL.
--- NOTE | 2020-01-01 16:31 | NUR ---
GISELE ADVANCED BY 5CM. PLACEMENT AT 73CM. AWAITING XRAY.
--- NOTE | 2020-01-01 17:15 | NUR ---
GISELE XRAY COMPLETED AT BEDSIDE, DR. DOWNS IN UNIT AND RECOMMENDED FURTHER ADVANCEMENT. DOBBHOFF AT 80CM. AWAITING PLACEMENT VERIFICATION.
--- NOTE | 2020-01-01 17:50 | NUR ---
FEEDINGS XRAY CONFIRMED PLACEMENT AT 80CM. PROTOCOL FOLLOWED. STYLET REMOVED. PATIENT TURNED TO RIGHT SIDE TO FACILITATED FURTHER PLACEMENT. TUBE FEEDINGS STARTED AT 20ML/HR. ASPIRATION PRECAUTIONS IN PLACE.
[2020-01-01] MEDS: FUROSEMIDE INJECTION 100 MG in D5W 5% 100 ML IV SCH (17:52)
[2020-01-01] MEDS: MIDAZOLAM DRIP 50 mg/50mL 50 ML IV SCH (17:53)
--- NOTE | 2020-01-01 18:18 | NUR ---
Respiratory note: RECEIVED PT ON VENT V5. VENT CONNECTED TO RED OUTLET AND O2 SOURCE ALARMS ARE SET AND AUDIBLE. AMBU BAG AND MASK AT BEDSIDE. BS ARE CLEAR. NO SX DONE THIS CHECK. PTS CURRENT TEMP READING 99.3F. RT NAME AND PAGER ASSIGNMENT WRITTEN ON PTS ROOM BOARD. WILL CONTINUE TO MONITOR.
--- NOTE | 2020-01-01 19:00 | NUR ---
Opening shift note: Primary RN Markie received report on patient. Pt intubated ETT 8.0/26cm @ LL, Vent settings: AC 18, TV 550, FIO2 35%, PEEP 8 and sating at 95%, bilateral lungs clear but diminished. PICC line to right upper arm triple lumen, infusing TPN @ 67, Fentanyl @ 200, Versed @ 10, Propofol @ 30, Lasix @ 5.5 and Levo @ 4. Dobbhoff tube in right Nare running feeding per MD order. Suazo catheter draining via gravity with yellow urine. Rectal probe in place. Safety precautions in place. RN will continue to monitor.
[2020-01-01] MEDS ORDERED: TPN PER PHARMACY IV NR ×8 (20:00)
--- NOTE | 2020-01-01 20:07 | NUR ---
Respiratory note: AT BEDSIDE FOR ROUTINE VENT CHECK NO CHANGES MADE WILL CONTINUE TO MONITOR. PTS CURRENT TEMP READS 99.5F.
--- NOTE | 2020-01-01 22:00 | NUR ---
Dobbhoff flushed with 30mL of sterile water.
--- NOTE | 2020-01-01 22:18 | NUR ---
Respiratory note: AT BEDSIDE FOR ROUTINE VENT CHECK. NO CHANGES MADE. BS ARE FINE COURSE SXD FOR SCANT CLEAR. WILL CONTINUE TO MONITOR. PTS CURRENT TEMP READS 99.0F.
[2020-01-02] VITALS (107 sets, daily range): BP systolic 97–135; BP diastolic 54–78
--- NOTE | 2020-01-02 00:14 | NUR ---
Respiratory note: AT BEDSIDE FOR ROUTINE VENT CHECK. NO CHANGES MADE. WILL CONTINUE TO MONITOR. PTS CURRENT TEMP READS 99.0F.
[2020-01-02] MEDS: PROPOFOL 100 ML IV SCH ×3 (00:30→22:00)
[2020-01-02] MEDS: fentaNYL Drip 2500mCg/250mlNS 250 ML IV SCH ×2 (00:31→23:24)
--- NOTE | 2020-01-02 02:00 | NUR ---
Dobbhoff flushed with 30mL of sterile water.
--- NOTE | 2020-01-02 03:00 | NUR ---
Bed bath: Patient given bed bath. Patient tolerated intervention well with no s/s of discomfort or distress.
--- NOTE | 2020-01-02 04:03 | NUR ---
Respiratory note: END OF SHIFT VENT CHECK, NO CHANGES MADE WILL HAVE DAY SHIFT CONTINUE POC.
[2020-01-02 04:32] LABS: Mean Corpuscular Volume 86.2 fL (80.0-100.0)
[2020-01-02 04:34] LABS: Hematocrit 30.3 % (41.0-53.0); Mean Corpuscular Hemoglobin 28.5 pg (28.0-32.0); Mean Corpuscular Hgb Conc. 33.1 g/dL (32.0-36.0); Platelet Count (auto) 658 10^3/uL (140-450); Red Blood Cells 3.51 10^6/uL (4.5-5.90); Red Cell Distribution Width 15.3 % (11.8-14.3); White Blood Cell 8.5 10^3/uL (4.4-10.8)
[2020-01-02 04:49] LABS: Albumin 1.9 g/dL (3.4-5.0); BUN/Creatinine Ratio 41.8; Calcium 8.1 mg/dL (8.5-10.1); Magnesium 2.4 mg/dL (1.6-2.6); Potassium 3.8 mmol/L (3.5-5.1)
[2020-01-02 04:52] LABS: Bilirubin, Total 0.5 mg/dL (0.2-1.0); Phosphorus 3.9 mg/dL (2.5-4.90); Total Protein 8.2 g/dL (6.4-8.2)
[2020-01-02 04:58] LABS: Basophils % (manual) 0 (0.0-2.0); Blast Cells 0; Metamyelocytes % 0; Myelocytes % 0; Promyelocytes % 0; Reactive Lymphocytes 0
[2020-01-02 05:29] LABS: Pre Albumin 24.3 mg/dL (20.0-40.0)
[2020-01-02] MEDS: InsuLIN REG 1unit/0.01ml Soln (100units/ml) SC SCH ×4 (05:43→23:39)
[2020-01-02] MEDS: MEROPENEM 1GM IVPB 100 ML IV SCH (05:43)
[2020-01-02] MEDS: ACCU-CHEK COMFORT CURVE STRIP VI SCH ×4 (05:43→23:39)
[2020-01-02] MEDS: METOCLOPRAMIDE HCL 5MG/ml INJ 2ml VIAL IV SCH ×3 (05:43→21:39)
--- NOTE | 2020-01-02 05:58 | NUR ---
Dobbhoff flushed with 30mL of sterile water.
[2020-01-02 06:42] LABS: Band Neutrophils % (manual) 5; Eosinophils % (manual) 7 (0-7); Lymphocytes % (manual) 6 (10.0-50.0); Monocytes % (manual) 4 (0-12)
--- NOTE | 2020-01-02 08:00 | NUR ---
INITIAL/ONGOING ASSESSMENT: Patient currently with retractive breathing and nasal flaring, RR 30's, increased Dip to 40 mcg's. Rectal temperature 100.2, cooling blanket in place beneath patient. No part of cooling blanket is in direct contact with patient's skin. Assessment completed and documented in flowsheet.
--- NOTE | 2020-01-02 10:00 | NUR ---
ROUNDS; Medications administered. Dobbhoff tube flushed as per protocol. Plan to begin to titrate down on sedation slowly and as tolerated by patient.
[2020-01-02] MEDS: POTASSIUM EFFERVESENT TAB 25 MEQ GT SCH (10:08)
[2020-01-02] MEDS: MICAFUNGIN SODIUM 100 MG in SODIUM CHL 0.9% 100 ML IV SCH (10:09)
[2020-01-02] MEDS: PANTOPRAZOLE 40 MG/10 ML VIAL INJ IV SCH (10:09)
[2020-01-02] MEDS: MIDAZOLAM DRIP 50 mg/50mL 50 ML IV SCH ×2 (10:09→23:00)
[2020-01-02] MEDS: ENOXAPARIN SOD 40 MG/0.4 ML SYRINGE SC SCH (10:09)
[2020-01-02] MEDS: SODIUM CHLOR 0.9% PF (SALINE LOCK) 10ML VIAL/SYR IV SCH ×2 (10:30→21:39)
[2020-01-02] MEDS: FUROSEMIDE INJECTION 100 MG in D5W 5% 100 ML IV SCH (10:47)
--- NOTE | 2020-01-02 11:13 | NUR ---
Nutrition Followup Note Wt: 98.0 kg pt`s intubated sedated on EN support with Jevity 1.2 @ 20 ml.hr providing 576 kcals and 25 gm proteins. Pt intubated and sedated with propofol @ 17.64 ml/hr providing 466 kcals from fats. Pt is currently NPO initiated on PN support @ 65 ml/hr providing 1250 kcals, 100 gm proteins and 850 NPCs. Pt with adequate energy intake from PN support as it meets >100% of energy and protein needs. Est energy needs 2978-8602 kcal/kg (25-30 kcal/kg IBW 67.3kg) , Est protein needs 67-87g (1-1.3g/kg IBW 67.3kg severe hypoalb) Will reassess prn. reassessed Labs: CA 8.1 L, CO2 33 H, ALB 1.9 L, GLU 139 H BM: Pt had 400 ml gastric drainage 12/30 per RN doc. Skin: BS 11 high risk incision abd full details in RN WC doc PES: Inadequate oral intake r/t current medical condition aeb pt intubated and sedated with NPO Comments: 1) Advance diet as medically feasible 2) Taper off PN support if pt tolerate EN support with Jevity 1.2 @ 60 ml/hr on current rate of propofol. 3) F/u 2-3 days
[2020-01-02] MEDS: metroNIDAZOLE 500MG/100ML 100 ML IV SCH ×2 (14:30→21:39)
--- NOTE | 2020-01-02 14:56 | NUR ---
I faxed LTAC order to [facility] and [facility]. I received a call from Mary at [facility] [phone] extension [phone] letting me know that when patient is ready to go to [facility]-call her for the authorization.
--- NOTE | 2020-01-02 19:00 | NUR ---
Opening shift note: Primary RN Markie received report on patient. Pt intubated ETT 8.0/26cm @ LL, Vent settings: AC 18, TV 550, FIO2 35%, PEEP 8 and sating at 96%, bilateral lungs clear but diminished. PICC line to right upper arm triple lumen, infusing TPN @ 65, Fentanyl @ 200, Versed @ 0, Propofol @ 50, Lasix @ 5.5 and Levo @ 0. Dobbhoff tube in right Nare running feeding per MD order. Suazo catheter draining via gravity with yellow urine. Rectal probe in place. Safety precautions in place. RN will continue to monitor. Dr. Baird at patient bedside performing rounds. Per MD, start patient back on Versed d/t patient just noted to start breathing rapidly and using abdominal muscles for breathing. Patient currently not tolerating weaning off sedation at this time.
[2020-01-02] MEDS: NOREPINEPHRINE 8 MG/250ML KIT 250 ML IV SCH (19:22)
[2020-01-02] MEDS ORDERED: TPN*HIGH CONC* PER PHARMACY IV NR ×9 (20:00)
--- NOTE | 2020-01-02 22:00 | NUR ---
Dobbhoff flushed with 30mL of sterile water.
--- NOTE | 2020-01-02 23:00 | NUR ---
Versed increased, patient was not synchronizing with vent.
--- NOTE | 2020-01-02 23:30 | NUR ---
Versed increased, patient was not synchronizing with vent.
[2020-01-03] VITALS (90 sets, daily range): BP systolic 82–184; BP diastolic 43–87
--- NOTE | 2020-01-03 01:06 | NUR ---
SECOND COVID RESULTS: RN received call from lab regarding patient's COVID-19 results. Per cardiac cath lab technologist, patient is negative for COVID 19.
--- NOTE | 2020-01-03 02:00 | NUR ---
Dobbhoff flushed with 30mL of sterile water.
[2020-01-03] MEDS: PROPOFOL 100 ML IV SCH ×4 (04:00→21:00)
[2020-01-03 04:19] LABS: Platelet Count (auto) 523 10^3/uL (140-450)
[2020-01-03 04:21] LABS: Hematocrit 31.1 % (41.0-53.0); Mean Corpuscular Hgb Conc. 32.3 g/dL (32.0-36.0); Mean Corpuscular Volume 86.6 fL (80.0-100.0); Red Blood Cells 3.59 10^6/uL (4.5-5.90); White Blood Cell 8.3 10^3/uL (4.4-10.8)
[2020-01-03 04:31] LABS: Basophils % (manual) 0 (0.0-2.0); Blast Cells 0; Metamyelocytes % 0; Myelocytes % 0; Promyelocytes % 0; Reactive Lymphocytes 0
[2020-01-03 04:40] LABS: Albumin 2.1 g/dL (3.4-5.0); Calcium 8.4 mg/dL (8.5-10.1); Magnesium 2.4 mg/dL (1.6-2.6); Potassium 3.6 mmol/L (3.5-5.1)
[2020-01-03 04:46] LABS: BUN/Creatinine Ratio 40.3; Bilirubin, Total 0.5 mg/dL (0.2-1.0); Phosphorus 3.8 mg/dL (2.5-4.90); Total Protein 8.2 g/dL (6.4-8.2)
[2020-01-03] MEDS: ACCU-CHEK COMFORT CURVE STRIP VI SCH ×3 (05:30→18:00)
[2020-01-03] MEDS: metroNIDAZOLE 500MG/100ML 100 ML IV SCH ×3 (05:30→22:00)
[2020-01-03] MEDS: InsuLIN REG 1unit/0.01ml Soln (100units/ml) SC SCH ×3 (05:30→18:00)
[2020-01-03] MEDS: METOCLOPRAMIDE HCL 5MG/ml INJ 2ml VIAL IV SCH ×3 (05:30→22:00)
[2020-01-03 05:35] LABS: Band Neutrophils % (manual) 2; Eosinophils % (manual) 6 (0-7); Lymphocytes % (manual) 12 (10.0-50.0); Monocytes % (manual) 7 (0-12)
--- NOTE | 2020-01-03 06:00 | NUR ---
Dobbhoff flushed with 30mL of sterile water.
--- NOTE | 2020-01-03 07:30 | NUR ---
Received report from Markie FLANAGAN Patient intubated, sedated. Patient calm, with no signs of distress. Patient has small catheter to gravity. Patient has NG tube to small intestine, with Jevity 1.2 @ 20ml/hr and TPN at 20ml/hr. Plan for patient is to place tracheostomy with consult from Dr. Rashid and transfer to [facility] work has been consulted. Will continue to monitor.
--- NOTE | 2020-01-03 08:08 | NUR ---
Per RT FIO2 changed to 30% post ABG.
--- NOTE | 2020-01-03 09:51 | NUR ---
Son Rui called from [place] I spoke with family member wishing to get an update on the status of transfer and update on patients medical status. Updated on plan regarding tracheostomy and reasons for procedure as well as status us weaning off of ventilator. RN will call him back once physicians and social media sr strategy manager give todays update and plan of care. [phone].
--- NOTE | 2020-01-03 10:23 | NUR ---
Propofol turned off to start sedation vacation and CPAP plan with RT at 1030.
--- NOTE | 2020-01-03 10:24 | NUR ---
Tube feeding turned off in preparation for possible weaning trials.
[2020-01-03] MEDS: levoFLOXacin 500MG 100 ML IV SCH (10:25)
[2020-01-03] MEDS: POTASSIUM EFFERVESENT TAB 25 MEQ GT SCH (10:26)
[2020-01-03] MEDS: PANTOPRAZOLE 40 MG/10 ML VIAL INJ IV SCH (10:26)
[2020-01-03] MEDS: SODIUM CHLOR 0.9% PF (SALINE LOCK) 10ML VIAL/SYR IV SCH ×2 (10:27→22:00)
[2020-01-03] MEDS: ENOXAPARIN SOD 40 MG/0.4 ML SYRINGE SC SCH (10:27)
--- NOTE | 2020-01-03 10:40 | NUR ---
INITIATED CPAP TRIAL RN titrated down sedation and CPAP trial was initiated as ordered. PS8, PEEP +5, FIO2 30%. Pt tolerating well, HR 94, SPO2 94%, RR 24, BP 169/81. Alarms set and audible. RN aware of changes. Will continue as tolerated with ABG to follow in one hour.
--- NOTE | 2020-01-03 11:05 | NUR ---
Weaning Trial Patient off of propofol at 1015. Weaning trial started at 1040 with RT. Patient starting to wake up. Eyes half open, cough and gag present. Patient lasted 20 minutes, AC mode turned back on at 1100 after patient HR 104 BP 184/72 and RR 40. Propofol resumed. During weaning trials patient started to cough. ETT was repositioned, patient was repositioned to assist with toleration of ventilator. Patient back on same vent settings AC 18 TV 550 PEEP 5 FIO2 30%. Addendum: 01/03/20 at 1127 by Mann Chavis RN PEEP of 8
[2020-01-03] MEDS: fentaNYL Drip 2500mCg/250mlNS 250 ML IV SCH ×2 (11:38→22:30)
[2020-01-03] MEDS: MIDAZOLAM DRIP 50 mg/50mL 50 ML IV SCH ×2 (11:40→21:00)
[2020-01-03] MEDS: MICAFUNGIN SODIUM 100 MG in SODIUM CHL 0.9% 100 ML IV SCH (11:58)
--- NOTE | 2020-01-03 15:01 | NUR ---
I called [facility] [phone] extension [phone] and left message asking about authorization for LTAC.
--- NOTE | 2020-01-03 15:15 | NUR ---
Spoke with Rui Per Dr. Baird, all communications through hospitalists so that consistent communication is given to family about patients status and plan for transfer. Per Rui and family, they would like patient to be transferred and not held up for the procedure. Per Dr. Francois, he will speak with bilingual case manager regarding the order for transfer. Per Corrections Caseworker the authorization is submitted and can take up to 24 hours from today to get the answer. RN discussed this with Rui and he verbalizes understanding of the plan. Once insurance has authorized transfer then [facility] will be contacted for a bed. I discussed this may take a couple of days, Rui understood.
--- NOTE | 2020-01-03 16:06 | NUR ---
Dr. Munguia called Transfer has been authorized, verbal order for transfer to another acute care facility, not a higher level of care since insurance would not authorize. Order to print out new med reconciliation since one in chart is 6 days old. Physician is notifying vee Fabian.
--- NOTE | 2020-01-03 16:49 | NUR ---
I spoke with Mary from [facility] [phone] ext [phone], she said authorization number for [facility] is [id number], authorization for [facility] to transport is [id number]. I spoke with Deisy at [facility], she is not sure whether they will have a bed this evening or tomorrow, they will call nurse's station when a bed becomes available. I spoke with Dr. Munguia and made him aware that we have authorization for [facility]. I called [facility] and spoke with Silva, placed them on will call pending transfer to [facility]-I made nurse Mann aware.
--- NOTE | 2020-01-03 18:29 | NUR ---
RT NOTE RECEIVED PT INTUBATED AND ON VENT V5 ON STATED SETTINGS WITH HEATED WIRE CIRCUIT. VENT IS PLUGGED TO RED OUTLET. ALARMS ARE ON AND AUDIBLE TO NURSING. AMBU BAG AT BEDSIDE AND CONNECTED TO O2 SOURCE. 8.0 ETT IS SECURED WITH ANCHORFAST WITH BITEBLOCK AT 25 CM TO THE ORAL RIGHT. BILATERAL BS ARE COARSE/DIM. PT SUCTIONED FOR LARGE RETURN FROM ETT AND SMALL ORALLY. WATER LEVEL IS ADEQUATE. CONT ORDERED. PT TEMP 98.4,etCO2 39, POX 99% Addendum: 01/03/20 at 1830 by Maribeth Mauro RT Amended: Links added.
--- NOTE | 2020-01-03 19:00 | NUR ---
Opening shift note: Primary RN Markie received report on patient. Pt intubated ETT 8.0/26cm @ LL, Vent settings: AC 18, TV 550, FIO2 30%, PEEP 8 and sating at 95%, bilateral lungs clear but diminished. PICC line to right upper arm triple lumen, infusing TPN @ 45, Fentanyl @ 200, Versed @ 5, Propofol @ 50 and Lasix @ 5.5. Dobbhoff tube in right Nare running feeding per MD order. Suazo catheter draining via gravity with yellow urine. Rectal probe in place. Safety precautions in place. RN will continue to monitor.
[2020-01-03] MEDS: NOREPINEPHRINE 8 MG/250ML KIT 250 ML IV SCH (19:33)
[2020-01-03] MEDS ORDERED: TPN*HIGH CONC* PER PHARMACY IV NR ×9 (20:00)
--- NOTE | 2020-01-03 20:00 | NUR ---
Dr. Rashid at patient bedside. Dr. Rashid made aware of patient's transfer status and family's wishes to transfer patient [facility] and not to keep patient here for possible Trach.
--- NOTE | 2020-01-03 20:12 | NUR ---
RT NOTE ROUTINE VENT CHECK DONE. PT INTUBATED AND ON VENT V5 ON STATED SETTINGS WITH HEATED WIRE CIRCUIT. VENT IS PLUGGED TO RED OUTLET. ALARMS ARE ON AND AUDIBLE TO NURSING. AMBU BAG AT BEDSIDE AND CONNECTED TO O2 SOURCE. 8.0 ETT IS SECURED WITH ANCHORFAST WITH BITE-BLOCK AT 25 CM TO THE ORAL RIGHT. WATER LEVEL IS ADEQUATE. CONT ORDERED. PT TEMP 97.3,etCO2 38, POX 94% Addendum: 01/03/20 at 2013 by Maribeth Mauro RT Amended: Links added.
--- NOTE | 2020-01-03 22:00 | NUR ---
Dobbhoff flushed with 30mL of sterile water.
--- NOTE | 2020-01-03 22:19 | NUR ---
RT NOTE ROUTINE VENT CHECK DONE. PT INTUBATED AND ON VENT V5 ON STATED SETTINGS WITH HEATED WIRE CIRCUIT. VENT IS PLUGGED TO RED OUTLET. ALARMS ARE ON AND AUDIBLE TO NURSING. AMBU BAG AT BEDSIDE AND CONNECTED TO O2 SOURCE. 8.0 ETT IS SECURED WITH ANCHORFAST WITH BITE-BLOCK AT 25 CM TO THE ORAL LEFT. WATER LEVEL IS ADEQUATE. CONT ORDERED. PT TEMP 98.8,etCO2 41, POX 94% Addendum: 01/03/20 at 2219 by Maribeth Mauro RT Amended: Links added.
[2020-01-04] VITALS (97 sets, daily range): BP systolic 101–154; BP diastolic 47–82
[2020-01-04] MEDS: FUROSEMIDE INJECTION 100 MG in D5W 5% 100 ML IV SCH ×2
--- NOTE | 2020-01-04 00:05 | NUR ---
RT NOTE ROUTINE VENT CHECK DONE. PT INTUBATED AND ON VENT V5 ON STATED SETTINGS WITH HEATED WIRE CIRCUIT. VENT IS PLUGGED TO RED OUTLET. ALARMS ARE ON AND AUDIBLE TO NURSING. AMBU BAG AT BEDSIDE AND CONNECTED TO O2 SOURCE. 8.0 ETT IS SECURED WITH ANCHORFAST WITH BITE-BLOCK AT 25 CM TO THE ORAL LEFT. WATER LEVEL IS ADEQUATE. CONT ORDERED. PT TEMP 99.0,etCO2 42, POX 95% Addendum: 01/04/20 at 0006 by Maribeth Mauro RT Amended: Links added.
[2020-01-04] MEDS: ACCU-CHEK COMFORT CURVE STRIP VI SCH ×4 (00:19→17:21)
--- NOTE | 2020-01-04 02:00 | NUR ---
Dobbhoff flushed with 30mL of sterile water.
--- NOTE | 2020-01-04 02:19 | NUR ---
RT NOTE ROUTINE VENT CHECK DONE. PT INTUBATED AND ON VENT V5 ON STATED SETTINGS WITH HEATED WIRE CIRCUIT. VENT IS PLUGGED TO RED OUTLET. ALARMS ARE ON AND AUDIBLE TO NURSING. AMBU BAG AT BEDSIDE AND CONNECTED TO O2 SOURCE. 8.0 ETT IS SECURED WITH ANCHORFAST WITH BITE-BLOCK AT 25 CM TO THE ORAL LEFT. WATER LEVEL IS ADEQUATE. PT WAS SUCTIONED FOR SMALL RETURN, INLINE SUCTION CHANGED WITHOUT INCIDENT. CONT ORDERED. PT TEMP 98.8,etCO2 40, POX 95% Addendum: 01/04/20 at 0226 by Maribeth Mauro RT Amended: Links added.
--- NOTE | 2020-01-04 04:12 | NUR ---
RT NOTE ROUTINE VENT CHECK DONE. PT INTUBATED AND ON VENT V5 ON STATED SETTINGS WITH HEATED WIRE CIRCUIT. VENT IS PLUGGED TO RED OUTLET. ALARMS ARE ON AND AUDIBLE TO NURSING. AMBU BAG AT BEDSIDE AND CONNECTED TO O2 SOURCE. 8.0 ETT IS SECURED WITH ANCHORFAST WITH BITE-BLOCK AT 25 CM TO THE ORAL LEFT. WATER LEVEL IS ADEQUATE. CONT ORDERED. PT TEMP 100.0,etCO2 40, POX 91% Addendum: 01/04/20 at 0424 by Maribeth Mauro RT Amended: Links added.
[2020-01-04] MEDS: METOCLOPRAMIDE HCL 5MG/ml INJ 2ml VIAL IV SCH ×3 (05:30→22:08)
[2020-01-04] MEDS: metroNIDAZOLE 500MG/100ML 100 ML IV SCH ×3 (05:30→22:08)
[2020-01-04] MEDS: InsuLIN REG 1unit/0.01ml Soln (100units/ml) SC SCH ×4 (05:31→17:21)
[2020-01-04 05:38] LABS: Albumin 2.2 g/dL (3.4-5.0); BUN/Creatinine Ratio 43.2; Bilirubin, Total 0.4 mg/dL (0.2-1.0); Calcium 8.5 mg/dL (8.5-10.1); Magnesium 2.6 mg/dL (1.6-2.6); Total Protein 8.2 g/dL (6.4-8.2)
--- NOTE | 2020-01-04 06:00 | NUR ---
Dobbhoff flushed with 30mL of sterile water.
--- NOTE | 2020-01-04 07:11 | NUR ---
REPORT RECEIVED FROM COOK LARDER RN
[2020-01-04] MEDS: levoFLOXacin 500MG 100 ML IV SCH (09:02)
[2020-01-04] MEDS: ENOXAPARIN SOD 40 MG/0.4 ML SYRINGE SC SCH (09:43)
[2020-01-04] MEDS: PANTOPRAZOLE 40 MG/10 ML VIAL INJ IV SCH (09:43)
[2020-01-04] MEDS: MICAFUNGIN SODIUM 100 MG in SODIUM CHL 0.9% 100 ML IV SCH (09:43)
[2020-01-04] MEDS: SODIUM CHLOR 0.9% PF (SALINE LOCK) 10ML VIAL/SYR IV SCH ×2 (09:43→22:28)
[2020-01-04] MEDS: PROPOFOL 100 ML IV SCH ×5 (09:43→22:08)
[2020-01-04] MEDS: POTASSIUM EFFERVESENT TAB 25 MEQ GT SCH (09:44)
--- NOTE | 2020-01-04 10:00 | NUR ---
ORAL CARE PERFORMED PATIENT TOLERATED WELL
[2020-01-04] MEDS: fentaNYL Drip 2500mCg/250mlNS 250 ML IV SCH ×2 (10:01→22:27)
--- NOTE | 2020-01-04 10:08 | NUR ---
CPAP UNABLE TO CPAP PATIENT AT THIS TIME. PATIENT USING ACCESSORY MUSCLES, FORCEFUL BREATHING, RR HIGH 30'S, INCREASED BLOOD PRESSURE AND DECREASE IN OXYGEN SATURATION.
--- NOTE | 2020-01-04 10:54 | NUR ---
FAMILY SON TIAN UPDATED ON PATIENT STATUS. ALL QUESTIONS AND CONCERNS ADDRESSED AT THIS TIME
--- NOTE | 2020-01-04 11:28 | NUR ---
Nutrition Followup Note Wt: 96.8 kg Pt awaiting transfer to SNF. pt`s intubated sedated with propofol @ 29ml/hr providing 766 kcal, TPN running at 45 ml/hr to provide 1259 kcal and 100.5g protein. Pt with adequate energy intake from PN support as it meets >100% of energy and protein needs. Continue to try Jevity 1.2 @ 20 ml/hr as pt tolerates to attempt to feed pt GI system. Est energy needs 7958-5273 kcal/kg (25-30 kcal/kg IBW 67.3kg) , Est protein needs 67-87g (1-1.3g/kg IBW 67.3kg severe hypoalb) Will reassess prn. reassessed Labs: CO2 34H, BUn 35H, GLU 114H, Alb 2.2L BM: Pt had 400 ml gastric drainage 12/30 per RN doc. Skin: BS 11 high risk incision abd full details in RN WC doc PES: Inadequate oral intake r/t current medical condition aeb pt intubated and sedated with NPO Comments: 1) Advance diet as medically feasible 2) Taper off PN support if pt tolerate EN support with Jevity 1.2 @ 60 ml/hr on current rate of propofol. 3) F/u 2-3 days
--- NOTE | 2020-01-04 11:47 | NUR ---
DR. DON AT BEDSIDE
--- NOTE | 2020-01-04 14:09 | NUR ---
CVP 3-4
--- NOTE | 2020-01-04 14:33 | NUR ---
I called [facility] and spoke with Deisy [phone]-she said they are still waiting on a bed for this patient-they will call nurse's station when one becomes available. I spoke with nurse Almaraz and updated him on the status of the transfer-[facility] is on will call.
--- NOTE | 2020-01-04 15:45 | NUR ---
PARTIAL LINEN CHANGE PERFORMED AT THIS TIME
--- NOTE | 2020-01-04 15:55 | NUR ---
PT AT BEDSIDE FOR ROM
[2020-01-04] MEDS: MIDAZOLAM DRIP 50 mg/50mL 50 ML IV SCH (17:19)
[2020-01-04] MEDS: IPRATROPIUM BROM 0.5 MG/2.5ML INH SOL NEB PRN (19:08)
[2020-01-04] MEDS: ALBUTEROL SULF 2.5 MG/0.5ML(0.5%) NEB SOLN NEB PRN (19:08)
[2020-01-04] MEDS: NOREPINEPHRINE 8 MG/250ML KIT 250 ML IV SCH (19:33)
[2020-01-04] MEDS ORDERED: TPN*HIGH CONC* PER PHARMACY IV NR ×9 (20:00)
--- NOTE | 2020-01-04 20:00 | NUR ---
OPENING NOTE PT IS ON VENTILATOR AND SEDATED. NO S/S OF SHORTNESS OF BREATH. PT OCCASIONALLY VENTILATOR DESYNCHRONY. WALTON DRAINING DOWN THE GRAVITY, CLEAR YELLOW IN COLOR. SEE IV SPREAD SHEET FOR IV DRIPS, PT IS TPN AND JEVITY. FLUSHED DOBHOFF WITH 30ML OF WATER. BED IN THE LOWEST POSITION, RAILS X3. Addendum: 01/05/20 at 0258 by BO SOLIS RN RN PT IS ON COOLING BLANKET
[2020-01-05] VITALS (92 sets, daily range): BP systolic 105–160; BP diastolic 47–73
--- NOTE | 2020-01-05 | NUR ---
FLUSHED DOBHOFF WITH 30ML OF WATER
[2020-01-05] MEDS: ACCU-CHEK COMFORT CURVE STRIP VI SCH ×4 (00:03→17:37)
--- NOTE | 2020-01-05 04:11 | NUR ---
FLUSHED DOBHOFF WITH 30 ML OF WATER
[2020-01-05] MEDS: MIDAZOLAM DRIP 50 mg/50mL 50 ML IV SCH ×3 (04:28→16:32)
[2020-01-05 04:52] LABS: Calcium 8.4 mg/dL (8.5-10.1); Potassium 4.3 mmol/L (3.5-5.1)
[2020-01-05 04:58] LABS: Albumin 2.1 g/dL (3.4-5.0); BUN/Creatinine Ratio 48.4; Bilirubin, Total 0.4 mg/dL (0.2-1.0); Magnesium 2.5 mg/dL (1.6-2.6); Phosphorus 3.6 mg/dL (2.5-4.90)
--- NOTE | 2020-01-05 05:10 | NUR ---
CARES BED BATH AND PARTIAL BED LINEN CHANGE APPLIED OPTIFOAM TO SACRUM CLEANED JASWANT CARLTON INCISION WITH CHLORHEXIDINE GLUCONATE AND APPLIED OPTIFOAM DRESSING. JASWANT CARLTON INCISION LOOK INTACT, NO DRAINAGE OR REDNESS NOTED, SCAB OVER THE INCISION IS NOTED.
[2020-01-05] MEDS: PROPOFOL 100 ML IV SCH ×6 (05:30→21:01)
[2020-01-05] MEDS: metroNIDAZOLE 500MG/100ML 100 ML IV SCH ×2 (05:33→13:36)
[2020-01-05] MEDS: METOCLOPRAMIDE HCL 5MG/ml INJ 2ml VIAL IV SCH ×2 (05:33→13:36)
[2020-01-05] MEDS: InsuLIN REG 1unit/0.01ml Soln (100units/ml) SC SCH ×4 (06:00→17:37)
[2020-01-05] MEDS: IPRATROPIUM BROM 0.5 MG/2.5ML INH SOL NEB PRN (06:36)
[2020-01-05] MEDS: ALBUTEROL SULF 2.5 MG/0.5ML(0.5%) NEB SOLN NEB PRN (06:36)
[2020-01-05] MEDS: levoFLOXacin 500MG 100 ML IV SCH (08:31)
--- NOTE | 2020-01-05 08:44 | NUR ---
I called [facility] and spoke with Deisy [phone], she said she is still working on a bed assignment and will give me a call back. I called [facility] and spoke with Lucio, they remain on will call pending transfer to [facility].
[2020-01-05] MEDS: fentaNYL Drip 2500mCg/250mlNS 250 ML IV SCH ×2 (08:57→21:00)
[2020-01-05] MEDS: PANTOPRAZOLE 40 MG/10 ML VIAL INJ IV SCH (09:42)
[2020-01-05] MEDS: MICAFUNGIN SODIUM 100 MG in SODIUM CHL 0.9% 100 ML IV SCH (09:43)
[2020-01-05] MEDS: SODIUM CHLOR 0.9% PF (SALINE LOCK) 10ML VIAL/SYR IV SCH (09:43)
[2020-01-05] MEDS: POTASSIUM EFFERVESENT TAB 25 MEQ GT SCH (09:43)
[2020-01-05] MEDS: ENOXAPARIN SOD 40 MG/0.4 ML SYRINGE SC SCH (09:43)
--- NOTE | 2020-01-05 10:37 | NUR ---
CPAP TRIAL SEDATION DECREASED FOR CPAP TRIAL AND ASSESSMENT OF NEURO STATUS. PATIENTS RATE INCREASES TO 30'S WITH USE OF ACCESSORY MUSCLES AND VENTILATOR DYSSYNCHRONY. SEDATION INCREASED TO COMFORT
--- NOTE | 2020-01-05 10:47 | NUR ---
I called [facility] and spoke with Deisy [phone]-they are still waiting for a bed to open up at [facility], she will call [facility] and see if they have any ICU beds available (insurance auth would have to be switched to [place] is bed is available), she will give me a call back.
--- NOTE | 2020-01-05 11:34 | NUR ---
Patient will be going to [facility] ICU bed 6-Dr. Escobar accepting, nurse to call report to [phone]-they do not want patient to arrive prior to 7pm. I called [facility] and spoke with Lucio-turkey picker time set for 8pm-I relayed this information to nurse Almaraz.
--- NOTE | 2020-01-05 11:35 | NUR ---
FAMILY SON TIAN UPDATED THAT PATIENT WILL BE GOING TO [facility] ICU BED 6. ALL QUESTIONS AND CONCERNS ADDRESSED AT THIS TIME
--- NOTE | 2020-01-05 11:40 | NUR ---
[facility] SCREEN SENT TO LAB VIA BULLET
--- NOTE | 2020-01-05 12:19 | NUR ---
DR. SILVERIO AT BEDSIDE TO REMOVE JEFF DRAIN
--- NOTE | 2020-01-05 13:08 | NUR ---
WOUND PHOTO TAKEN OF PATIENTS LEFT EAR
--- NOTE | 2020-01-05 16:37 | NUR ---
WARMING MEASURES APPLIED
[2020-01-05] MEDS: NOREPINEPHRINE 8 MG/250ML KIT 250 ML IV SCH (19:33)
[2020-01-05] MEDS ORDERED: TPN*HIGH CONC* PER PHARMACY IV NR ×9 (20:00)
--- NOTE | 2020-01-05 20:20 | NUR ---
[facility] TEAM BEDSIDE TO TRANSPORT PT TO [facility].
--- NOTE | 2020-01-05 20:35 | NUR ---
GAVE REPORT TO MANPREET JORDAN RN PT IS GOING TO [facility] ICU ROOM 6
--- NOTE | 2020-01-05 21:12 | NUR ---
[facility] TEAM PICKED UP PATIENT PATIENT IS TAKEN BY BED ON [facility], TOLERATED TRANSFER FROM BED TO [facility]. PATIENT IS ACCOMPANIED BY HERMAN ZHENG RN AND OTHER TWO geosciences associate professor HANGED NEW 250ML FENTANYL, 100 ML PROPOFOL, AND NEW BAG OF TPN, PT IS NO LONGER ON [facility] CASE RN IS AWARE.
== END 2020-01-05 21:12 | disposition short-term general hospital (02) | DRG 853 ==
LOC: EDBD 06:47 → ER 06:47 → OVERFLOW 06:48 → WEST WING 16:24 → DOU IN ICU 12-13 19:43 → ICU WEST 12-15 15:10
PROVIDERS: ADMIT Nurse Practitioner Acute Care; ATTEND Internal Medicine
PROC: 0FT44ZZ Resection of Gallbladder, Percutaneous Endoscopic Approach (ICD-10-PCS; principal; 2019-12-13 09:17)
PROC: 0W9G40Z Drainage of Peritoneal Cavity with Drainage Device, Percutaneous Endoscopic Approach (ICD-10-PCS; 2019-12-15)
PROC: 0B9D8ZZ Drainage of Right Middle Lung Lobe, Via Natural or Artificial Opening Endoscopic (ICD-10-PCS; 2019-12-15)
PROC: 06HM33Z Insertion of Infusion Device into Right Femoral Vein, Percutaneous Approach (ICD-10-PCS; 2019-12-15)
PROC: 04HY32Z Insertion of Monitoring Device into Lower Artery, Percutaneous Approach (ICD-10-PCS; 2019-12-15)
PROC: B54BZZA Ultrasonography of Right Lower Extremity Veins, Guidance (ICD-10-PCS; 2019-12-15)
PROC: 5A1955Z Respiratory Ventilation, Greater than 96 Consecutive Hours (ICD-10-PCS; 2019-12-15)
PROC: 0BH17EZ Insertion of Endotracheal Airway into Trachea, Via Natural or Artificial Opening (ICD-10-PCS; 2019-12-15)
PROC: 30233N1 Transfusion of Nonautologous Red Blood Cells into Peripheral Vein, Percutaneous Approach (ICD-10-PCS; 2019-12-15)
PROC: 0B9D7ZX Drainage of Right Middle Lung Lobe, Via Natural or Artificial Opening, Diagnostic (ICD-10-PCS; 2019-12-18)
PROC: 0B9D7ZX Drainage of Right Middle Lung Lobe, Via Natural or Artificial Opening, Diagnostic (ICD-10-PCS; 2019-12-18)
PROC: 0BJ08ZZ Inspection of Tracheobronchial Tree, Via Natural or Artificial Opening Endoscopic (ICD-10-PCS; 2019-12-20)
PROC: 0BP1XDZ Removal of Intraluminal Device from Trachea, External Approach (ICD-10-PCS; 2019-12-23)
PROC: 0BH17EZ Insertion of Endotracheal Airway into Trachea, Via Natural or Artificial Opening (ICD-10-PCS; 2019-12-23)
PROC: 0B9B8ZZ Drainage of Left Lower Lobe Bronchus, Via Natural or Artificial Opening Endoscopic (ICD-10-PCS; 2019-12-23)
PROC: 0B9F8ZZ Drainage of Right Lower Lung Lobe, Via Natural or Artificial Opening Endoscopic (ICD-10-PCS; 2019-12-23)
PROC: 02HV33Z Insertion of Infusion Device into Superior Vena Cava, Percutaneous Approach (ICD-10-PCS; 2019-12-26)
PROC: 0B958ZZ Drainage of Right Middle Lobe Bronchus, Via Natural or Artificial Opening Endoscopic (ICD-10-PCS; 2019-12-27)
PROC: 03HY32Z Insertion of Monitoring Device into Upper Artery, Percutaneous Approach (ICD-10-PCS; 2019-12-27)
PROC: 4A133B1 Monitoring of Arterial Pressure, Peripheral, Percutaneous Approach (ICD-10-PCS; 2019-12-27)
PROC: 4A133J1 Monitoring of Arterial Pulse, Peripheral, Percutaneous Approach (ICD-10-PCS; 2019-12-27)
PROC: 0B9C8ZZ Drainage of Right Upper Lung Lobe, Via Natural or Artificial Opening Endoscopic (ICD-10-PCS; 2019-12-27)
DX: A41.9 Sepsis, unspecified organism (principal); N17.0 Acute kidney failure with tubular necrosis; K66.1 Hemoperitoneum; J69.0 Pneumonitis due to inhalation of food and vomit; R57.1 Hypovolemic shock; J96.01 Acute respiratory failure with hypoxia; R65.21 Severe sepsis with septic shock; I50.33 Acute on chronic diastolic (congestive) heart failure; D62 Acute posthemorrhagic anemia; E44.0 Moderate protein-calorie malnutrition; E87.1 Hypo-osmolality and hyponatremia; K80.12 Calculus of gallbladder with acute and chronic cholecystitis without obstruction; Z99.11 Dependence on respirator [ventilator] status; K40.20 Bilateral inguinal hernia, without obstruction or gangrene, not specified as recurrent; R73.9 Hyperglycemia, unspecified; N18.3 Chronic kidney disease, stage 3 (moderate); E66.9 Obesity, unspecified; E78.5 Hyperlipidemia, unspecified; I48.91 Unspecified atrial fibrillation; Z03.818 Encounter for observation for suspected exposure to other biological agents ruled out; Z68.29 Body mass index [BMI] 29.0-29.9, adult
CPT/HCPCS: 31624; 31645; 31646; 36415; 36569; 36600; 71045; 71250; 74018; 74176; 74177; 74181; 76700; 76705; 80048; 80053; 80202; 81001; 82040; 82150; 82805; 82962; 83036; 83605; 83690; 83735; 83880; 84100; 84443; 84478; 84484; 85007; 85014; 85018; 85025; 85027; 85379; 85610; 85730; 86850; 86900; 86901; 86920; 87040; 87070; 87077; 87081; 87086; 87186; 87205; 93005; 93306; 93970; 93971; 94003; 94640; 96361; 96374; C9113; G0378; J0171; J0330; J0690; J0696; J1450; J1815; J1885; J1956; J2185; J2248; J2250; J2405; J2543; J2704; J3480; J3490; J7042; J7060; J7131; P9047